=== PATIENT | female | born 1940 | race Caucasian/White ===

== ENCOUNTER → 2016-10-22 | Outpatient (CLI) | payer OTHER ==
[~2016-10-22] MED LIST: ASCO10003 PO; ASPI81TA28 PO; CLOP1TAB15 PO; FAMO20TA11 PO; FRS/40 PO; INSUINJ4 SQ; ISOS60TA25 PO; METO25TA56 PO; NRV5 PO; NTRGSL/4 UT; OMEG10007 PO; [UNRECOGNIZED DRUG - CODE] PO
[2016-10-22 14:35] LABS: BASO % 0.8 %; BASO ABS # 0.07 K/uL (0-0.2); COMPLETE YES; EOS % 5.1 %; HEMATOCRIT 39.4 % (37-47); IG% 0.2 %; LYMPH % 30.8 %; LYMPH ABS # 2.79 K/uL (1.2-3.4); MEAN CELL VOLUME 94.7 fL (80-100); MEAN CORPUSCULAR HEMOGLOBIN 30.5 pg (25-34); MEAN CORPUSCULAR HGB CONC 32.2 g/dl (32-36); MEAN PLATELET VOLUME 10.2 fL (7.4-10.4); MONO % 8.2 %; NEUT % 54.9 %; PLATELET COUNT 334 K/uL (130-400); RED BLOOD COUNT 4.16 M/uL (4.2-5.4); WHITE BLOOD COUNT 9.05 K/uL (4.8-10.8)
[2016-10-22 14:47] LABS: ALT/SGPT 17 U/L (12-78); AST/SGOT 18 U/L (15-37); BLOOD UREA NITROGEN 22 mg/dl (7-18); BUN/CREATININE RATIO 13.1 (10-20); CALCIUM 9.2 mg/dl (8.5-10.1); CARBON DIOXIDE 33 mmol/L (21-32); CHLORIDE 102 mmol/L (98-107); GLUCOSE 177 mg/dl (70-99); SODIUM 141 mmol/L (136-145)
[2016-10-22 14:58] LABS: CHOLESTEROL 165 mg/dl (0-200); HDL CHOLESTEROL 55 mg/dl; LDL CHOLESTEROL CALCULATED 70 mg/dl; TRIGLYCERIDES 198 mg/dl (0-150); VERY LOW DENSITY LIPOPROT CALC 40 mg/dl
[2016-10-23 08:57] LABS: ESTIMATED AVERAGE GLUCOSE 169 mg/dl; HA1C FLAG Normal (Normal)
== END | disposition home or self-care (01) ==
LOC: C.LAB1850 12:43
PROVIDERS: ATTEND Internal Medicine
DX: E11.9 Type 2 diabetes mellitus without complications (principal)

== ENCOUNTER → 2017-04-19 | Outpatient (CLI) | payer OTHER ==
[2017-04-19 12:55] LABS: BASO ABS # 0.09 K/uL (0-0.2); COMPLETE YES; EOS % 9.9 %; HEMATOCRIT 39.1 % (37-47); IG% 0.2 %; LYMPH % 34.5 %; LYMPH ABS # 3.16 K/uL (1.2-3.4); MEAN CELL VOLUME 96.1 fL (80-100); MEAN CORPUSCULAR HEMOGLOBIN 31.2 pg (25-34); MEAN CORPUSCULAR HGB CONC 32.5 g/dl (32-36); MEAN PLATELET VOLUME 10.6 fL (7.4-10.4); MONO % 9.3 %; NEUT % 45.1 %; PLATELET COUNT 295 K/uL (130-400); RED BLOOD COUNT 4.07 M/uL (4.2-5.4); WHITE BLOOD COUNT 9.15 K/uL (4.8-10.8)
[2017-04-19 13:17] LABS: ESTIMATED AVERAGE GLUCOSE 154 mg/dl; HA1C FLAG Normal (Normal)
[2017-04-19 13:34] LABS: ALT/SGPT 17 U/L (12-78); AST/SGOT 21 U/L (15-37); BLOOD UREA NITROGEN 20 mg/dl (7-18); BUN/CREATININE RATIO 12.2 (10-20); CALCIUM 9.6 mg/dl (8.5-10.1); CARBON DIOXIDE 32 mmol/L (21-32); CHLORIDE 102 mmol/L (98-107); CHOLESTEROL 163 mg/dl (0-200); CREATININE 1.66 mg/dl (0.60-1.20); GLUCOSE 125 mg/dl (70-99); POTASSIUM 4.2 mmol/L (3.5-5.1); SODIUM 139 mmol/L (136-145); TRIGLYCERIDES 150 mg/dl (0-150); VERY LOW DENSITY LIPOPROT CALC 30 mg/dl
[2017-04-19 13:44] LABS: CHOLESTEROL/HDL RATIO 2.9; HDL CHOLESTEROL 56 mg/dl; LDL CHOLESTEROL CALCULATED 77 mg/dl
== END | disposition home or self-care (01) ==
LOC: C.LABBFT 09:20
PROVIDERS: ATTEND Internal Medicine
DX: Z00.00 Encounter for general adult medical examination without abnormal findings (principal); C34.90 Malignant neoplasm of unspecified part of unspecified bronchus or lung; N18.9 Chronic kidney disease, unspecified; I25.10 Atherosclerotic heart disease of native coronary artery without angina pectoris; E78.5 Hyperlipidemia, unspecified; R42 Dizziness and giddiness; J96.10 Chronic respiratory failure, unspecified whether with hypoxia or hypercapnia; M53.3 Sacrococcygeal disorders, not elsewhere classified; E11.29 Type 2 diabetes mellitus with other diabetic kidney complication; I70.1 Atherosclerosis of renal artery

== ENCOUNTER → 2017-06-16 | Outpatient (CLI) | payer OTHER ==
--- NOTE | 2017-06-16 13:01 | DIAGNOSTIC IMAGING REPORT ---
CHEST 2 VIEWS ROUTINE CLINICAL HISTORY: J84.9 Interstitial lung [id number] dyspnea COMPARISON STUDY: 06/10/2015 FINDINGS: Operative changes consistent with a left pneumonectomy are in compensatory cardiomediastinal silhouette shift to the left. Slight increase in interstitial markings peripheral aspect right lung as well as right base. There are no consolidative infiltrative changes. IMPRESSION: 1. Prior left pneumonectomy. 2. Interval interstitial changes throughout the right peripheral and basilar lung regions suggesting a nonspecific interstitial pneumonitis. The above report was generated using voice recognition software. It may contain grammatical, syntax or spelling errors. Electronically signed by: Karthik Sinclair M.D. 06/16/2017 12:59 PM Dictated Date/Time: 06/16/2017 12:58 PM
== END | disposition home or self-care (01) ==
LOC: C.RAD1850 12:17
PROVIDERS: ATTEND Physician Assistant
DX: J84.9 Interstitial pulmonary disease, unspecified (principal)

== ENCOUNTER → 2017-08-01 | Outpatient (CLI) | payer OTHER ==
[2017-08-01 12:49] LABS: HEMOGLOBIN A1C 7.3 % (4.5-5.6)
== END | disposition home or self-care (01) ==
LOC: C.LABBFT 09:17
PROVIDERS: ATTEND Internal Medicine
DX: E11.9 Type 2 diabetes mellitus without complications (principal)

== ENCOUNTER 2018-10-26 11:37 | Inpatient (IN) ==
[2018-10-26] MEDS ORDERED: ALBUT/IPRATROP 3MG/0.5MG NEB 3 ML VIAL INH STA (12:40)
[2018-10-26 12:56] LABS: Basophils # (auto) 0.06 K/uL (0-0.2); Basophils % (auto) 0.4 %; Eosinophils % (auto) 2.2 %; Hemoglobin 12.4 g/dL (12.0-16.0); Immature Granulocytes # (auto) 0.03 K/uL (0.00-0.02); Immature Granulocytes % (auto) 0.2 %; Lymphocytes # (auto) 2.37 K/uL (1.2-3.4); Lymphocytes % (auto) 17.1 %; Mean Corpuscular Hgb Conc 33.5 g/dL (32-36); Mean Corpuscular Volume 92.3 fL (80-100); Mean Platelet Volume 10.2 fL (7.4-10.4); Monocytes % (auto) 6.5 %; Neutrophils # (auto) 10.17 K/uL (1.4-6.5); Neutrophils % (auto) 73.6 %; Platelet Count 348 K/uL (130-400); RDW Coefficient of Variation 13.1 % (11.5-14.5); RDW Standard Deviation 44.4 fL (36.4-46.3); Red Blood Count 4.01 M/uL (4.2-5.4); White Blood Count 13.83 K/uL (4.8-10.8)
[2018-10-26 13:05] LABS: Partial Thromboplastin Time 27.9 Seconds (21.0-31.0); Prothrombin Time 10.3 Seconds (9.0-12.0)
[2018-10-26 13:08] LABS: Alanine Aminotransferase 16 U/L (12-78); Albumin Level 3.6 gm/dl (3.4-5.0); Aspartate Aminotransferase 19 U/L (15-37); BUN Creatinine Ratio 13.3 (10-20); Blood Urea Nitrogen 24 mg/dl (7-18); Calcium 9.7 mg/dl (8.5-10.1); Carbon Dioxide 24 mmol/L (21-32); Chloride 105 mmol/L (98-107); Est GFR (African American) 30.3; Est GFR (Non-African American) 26.1; Glucose 168 mg/dl (70-99); Magnesium 2.3 mg/dl (1.8-2.4); Sodium 140 mmol/L (136-145)
[2018-10-26 13:13] LABS: Albumin Globulin Ratio 0.9 (0.9-2); Alkaline Phosphatase 100 U/L (45-117); Bilirubin,Total 0.5 mg/dl (0.2-1); Globulin 4.2 gm/dl (2.5-4.0); Total Protein 7.8 gm/dl (6.4-8.2); Troponin I 0.021 ng/ml (0-0.045)
--- NOTE | 2018-10-26 13:24 | XRay Report ---
XR chest 1V portable CLINICAL HISTORY: sob dyspnea COMPARISON STUDY: 06/10/2015 FINDINGS: Prior total left pneumonectomy. Permanent bipolar cardiac pacemaker. Interval development of parenchymal infiltrative change right mid and lower lung. Trace pleural fluid right base. IMPRESSION: Diffuse right mid and lower lung infiltrate. Operative changes consistent with a prior l eft pneumonectomy The above report was generated using voice recognition software. It may contain grammatical, syntax or spelling errors. Electronically signed by: Karthik Sinclair M.D. 10/26/2018 1:22 PM
[2018-10-26] MEDS ORDERED: PIPERACILLIN/TAZOBACTAM 4.5 GM/120 ML BAG IV ONE (14:00)
--- NOTE | 2018-10-26 14:54 | History & Physical Report ---
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 She says that she started to feel more short of breath over the past three or four days. She felt congested in her nose and like she could not take a deep breath. She had some chills but never a fever or sweats. She was coughing a little but no mucous production. Her appetite was decreased for the past two days. She did not have any chest pain or pressure. No vomiting or diarrhea or rashes. She tried increasing her home oxygen from 2L to 4L but she still felt short of breath, especially when walking. She presented to the ED because her symptoms were getting worse. In the ED she had a leukocytosis of 13k and her CXR showed infiltrates in the right lung. She was not in respiratory distress. She was treated with Zosyn and admission was requested. Allergies Allergy/AdvReac Type Severity Reaction Status Date / Time No Known Allergies Allergy Unknown Verified 10/26/18 12:28 Home Medications Home Medications Medication Instructions Recorded Confirmed Type amlodipine 5 mg PO DAILY 10/26/18 10/26/18 History apixaban [Eliquis] 5 mg PO BID 10/26/18 10/26/18 History ascorbic acid (vitamin C) [Vitamin 500 mg PO DAILY 10/26/18 10/26/18 History C] aspirin [Aspir-81] 81 mg PO DAILY 10/26/18 10/26/18 History atorvastatin 10 mg PO DAILY 10/26/18 10/26/18 History clopidogrel 75 mg PO DAILY 10/26/18 10/26/18 History diltiazem HCl 240 mg PO DAILY 10/26/18 10/26/18 History famotidine 20 mg PO DAILY 10/26/18 10/26/18 History insulin glargine [Lantus Solostar 1 unit SUBCUT UD 10/26/18 10/26/18 History U-100 Insulin] isosorbide mononitrate 60 mg PO DAILY 10/26/18 10/26/18 History metoprolol tartrate 25 mg PO BID 10/26/18 10/26/18 History nitroglycerin 0.4 mg SUBLINGUAL Q5M PRN 10/26/18 10/26/18 History Past Med/Surg History Medical History Coronary artery disease (Chronic) Pneumonia (Acute) Surgical History S/P pneumonectomy S/P partial lobectomy of lung Family History Other Diabetes Hypertension Social History Preferred Language: Citizen Of [place] Communication Ability: Effective [employer] Required: No Beliefs That Will Affect Care: None marital status: Current Living Situation: Spouse current occupational status: retired Other Information That Helps Us Care for You: No Feels Safe at Home: Yes Safety Concerns: Feels Safe At This Time Smoking Status: Never smoker Hx Alcohol Use: No Hx Substance Use: No Review of Systems Review of Systems: All systems reviewed & are unremarkable except as noted in HPI & below Physical Exam Constitutional: WD/WN, vitals as above Eyes: PERRL, conjunctivae normal, anicteric sclerae ENMT: external ear and nose normal, oropharynx normal Neck: trachea midline, no thyromegaly Respiratory: normal respiratory effort and + cough; no respiratory distress Auscultation: + breath sounds absent (left side) and + crackles (right lower and middle lung); no rhonchi and no wheezes Cardiovascular: RRR, no murmur, no edema Gastrointestinal (Abdomen): normal bowel sounds, soft, nontender, no hepatosplenomegaly Musculoskeletal: no cyanosis or clubbing, extremities motor strength 5/5 Skin: no rashes, warm and dry Neurologic: patellar DTR's 2+ bilat, sensation intact and PERRL, EOMI, accommodation nl, no face palsy, no dysarthria Psychiatric: A+Ox3, euthymic affect Lymphatic: no cervical or axillary lymphadenopathy Results & Data Vital Signs (Past 12 Hours) Vital Signs Temp Pulse Pulse Resp BP Pulse Ox 10/26/18 13:11 73 16 98 10/26/18 13:00 73 97 10/26/18 12:30 78 27 H 183/63 H 95 10/26/18 12:02 77 29 H 204/65 H 97 10/26/18 12:01 36.9 C 84 22 214/122 H 95 10/26/18 12:00 79 23 98 10/26/18 11:48 85 22 95 10/26/18 11:46 80 25 H 214/122 H 94 Laboratory Results Laboratory Results - last 24 hr 10/26/18 10/26/18 10/26/18 12:07 12:07 12:07 WBC 13.83 H RBC 4.01 L Hgb 12.4 Hct 37.0 MCV 92.3 MCH 30.9 MCHC 33.5 RDW Std Deviation 44.4 RDW Coeff of Kimberley 13.1 Plt Count 348 MPV 10.2 Immature Gran % (Auto) 0.2 Neut % (Auto) 73.6 Lymph % (Auto) 17.1 [place] % (Auto) 6.5 Eos % (Auto) 2.2 Baso % (Auto) 0.4 Immature Gran # (Auto) 0.03 H Neut # (Auto) 10.17 H Lymph # (Auto) 2.37 [place] # (Auto) 0.90 H Eos # (Auto) 0.30 Baso # (Auto) 0.06 PT 10.3 INR 1.0 APTT 27.9 PTT Ratio 1.0 Sodium Cancelled Potassium Cancelled Chloride Cancelled Carbon Dioxide Cancelled Anion Gap Cancelled BUN Cancelled Creatinine Cancelled Est Cr Clr Drug Dosing Cancelled Est GFR ( Amer) Cancelled Est GFR (Non-Af Amer) Cancelled BUN/Creatinine Ratio Cancelled Glucose Cancelled Calcium Cancelled Magnesium Cancelled Total Bilirubin Cancelled AST Cancelled ALT Cancelled Alkaline Phosphatase Cancelled Troponin I Cancelled Total Protein Cancelled Albumin Cancelled Globulin Cancelled Albumin/Globulin Ratio Cancelled Influenza Type A Ag Influenza Type B Ag 10/26/18 10/26/18 12:07 13:40 WBC RBC Hgb Hct MCV MCH MCHC RDW Std Deviation RDW Coeff of Kimberley Plt Count MPV Immature Gran % (Auto) Neut % (Auto) Lymph % (Auto) [place] % (Auto) Eos % (Auto) Baso % (Auto) Immature Gran # (Auto) Neut # (Auto) Lymph # (Auto) [place] # (Auto) Eos # (Auto) Baso # (Auto) PT INR APTT PTT Ratio Sodium 140 Potassium 4.0 Chloride 105 Carbon Dioxide 24 Anion Gap 10.0 BUN 24 H Creatinine 1.80 H Est Cr Clr Drug Dosing Not Reportable Est GFR ( Amer) 30.3 Est GFR (Non-Af Amer) 26.1 BUN/Creatinine Ratio 13.3 Glucose 168 H Calcium 9.7 Magnesium 2.3 Total Bilirubin 0.5 AST 19 ALT 16 Alkaline Phosphatase 100 Troponin I 0.021 Total Protein 7.8 Albumin 3.6 Globulin 4.2 H Albumin/Globulin Ratio 0.9 Influenza Type A Ag Neg for Influ A Influenza Type B Ag Neg for Influ B Diagnostic Findings XR chest 1V portable CLINICAL HISTORY: sob dyspnea COMPARISON STUDY: 06/10/2015 FINDINGS: Prior total left pneumonectomy. Permanent bipolar cardiac pacemaker. Interval development of parenchymal infiltrative change right mid and lower lung. Trace pleural fluid right base. IMPRESSION: Diffuse right mid and lower lung infiltrate. Operative changes consistent with a prior left pneumonectomy Code Status & VTE Plan Code Status DNR, DNI VTE Prophylaxis Plan VTE Prophylaxis will be ordered: Yes (1) Pneumonia Laterality: right Lung location: lower lobe of lung Pneumonia type: due to unspecified organism Qualified Code(s): J18.1 - Lobar pneumonia, unspecified organism
--- NOTE | 2018-10-26 16:01 | Emergency Department Note ---
Entered by Monalisa Sharpe acting as a scribe for History of Present Illness General Chief complaint: Shortness of Breath/Dyspnea Stated complaint: sob Time Seen by Provider: 10/26/18 12:32 Source: patient Mode of arrival: EMS Limitations: no limitations History of Present Illness Provider complaint: Shortness of breath Onset (ago): day(s) (a few days ago) Location: mouth (throat) Pain Consistency: + other (worsening) Quality: + other (shortness of breath) Relieved By: + medication (nitroglycerin) Associated symptoms: + cough (bloody phlegm) and + other (Additional symptoms: throat discomfort. Denies: diarrhea); no chest pain and no nausea/vomiting Treatments prior to arrival: other (2 doses nitroglycerin) The patient is an 78 year old female with a history of a left pneumectomy secondary to a carcinoid tumor who presents to the Emergency Room with complaints of worsening shortness of breath starting a few days ago. The patient reports that she is "totally stopped up" and feels as if she is not getting enough air. She states that she has discomfort from her throat up and has been coughing for quite a while, but she denies any chest pain, vomiting, and diarrhea. She also notes that she been staggering around and losing her balance, and she states that she fell and hit her back about a month ago. The patient reports that her shortness of breath improved when she took 2 doses of nitroglycerin prior to arrival. She states that she was put on oxygen on the ambulance but did not receive any nebulizer treatment. She notes that she normally wears 2L oxygen at home. She adds that she takes Plavix and is supposed to take Eliquis twice a day for plaque in her arteries; however, she concedes that she has only been taking Eliquis once a day out of concern for blood in her phlegm. Home Medications Home Medications Medication Instructions Recorded Confirmed Type amlodipine 5 mg PO DAILY 10/26/18 10/26/18 History apixaban [Eliquis] 5 mg PO BID 10/26/18 10/26/18 History ascorbic acid (vitamin C) [Vitamin 500 mg PO DAILY 10/26/18 10/26/18 History C] aspirin [Aspir-81] 81 mg PO DAILY 10/26/18 10/26/18 History atorvastatin 10 mg PO DAILY 10/26/18 10/26/18 History clopidogrel 75 mg PO DAILY 10/26/18 10/26/18 History diltiazem HCl 240 mg PO DAILY 10/26/18 10/26/18 History famotidine 20 mg PO DAILY 10/26/18 10/26/18 History insulin glargine [Lantus Solostar 1 unit SUBCUT UD 10/26/18 10/26/18 History U-100 Insulin] isosorbide mononitrate 60 mg PO DAILY 10/26/18 10/26/18 History metoprolol tartrate 25 mg PO BID 10/26/18 10/26/18 History nitroglycerin 0.4 mg SUBLINGUAL Q5M PRN 10/26/18 10/26/18 History Allergies Allergy/AdvReac Type Severity Reaction Status Date / Time No Known Allergies Allergy Unknown Verified 10/26/18 12:28 Past Med/Surg History Medical History Coronary artery disease (Chronic) Pneumonia (Acute) Surgical History S/P pneumonectomy S/P partial lobectomy of lung Social History Preferred Language: Swedish Communication Ability: Effective [employer] Required: No Beliefs That Will Affect Care: None marital status: Current Living Situation: Spouse current occupational status: retired Other Information That Helps Us Care for You: No Feels Safe at Home: Yes Safety Concerns: Feels Safe At This Time Smoking Status: Never smoker Hx Alcohol Use: No Hx Substance Use: No Review of Systems See HPI for pertinent positives & negatives. and A total of 10 systems reviewed and were otherwise negative Physical Exam Vital Signs Vital Signs - 24 hr 10/26/18 11:46 10/26/18 11:48 10/26/18 12:00 Temperature Temperature Source Sepsis Recent Fever Within 48 Hours Sepsis New/Unexplained Change in Mental Status Sepsis Action Taken by Nursing Pulse Rate 80 85 79 Pulse Rate [Apical] Pulse Rate from SpO2 Sensor 82 85 79 Pulse Rhythm Pulse Strength Respiratory Rate 25 H 22 23 Respiratory Effort / Characteristics Respiratory Depth Respiratory Pattern Blood Pressure 214/122 H Blood Pressure Mean 152 Blood Pressure Position Pulse Oximetry 94 95 98 Oxygen Delivery Method Oxygen Flow Rate 10/26/18 12:01 10/26/18 12:02 10/26/18 12:08 Temperature 36.9 C Temperature Source Oral Sepsis Recent Fever Within 48 Hours No Sepsis New/Unexplained Change in Mental Status No Sepsis Action Taken by Nursing No Action Required Pulse Rate 84 77 Pulse Rate [Apical] Pulse Rate from SpO2 Sensor 77 Pulse Rhythm Regular Pulse Strength Normal Respiratory Rate 22 29 H Respiratory Effort / Characteristics Spontaneous Labored Spontaneous Labored Respiratory Depth Normal Normal Respiratory Pattern Regular Regular Blood Pressure 214/122 H 204/65 H Blood Pressure Mean 152 111 Blood Pressure Position Lying Pulse Oximetry 95 97 Oxygen Delivery Method Nasal Cannula Nasal Cannula Oxygen Flow Rate 4 3 10/26/18 12:30 10/26/18 13:00 10/26/18 13:11 Temperature Temperature Source Sepsis Recent Fever Within 48 Hours Sepsis New/Unexplained Change in Mental Status Sepsis Action Taken by Nursing Pulse Rate 78 77 Pulse Rate [Apical] 73 Pulse Rate from SpO2 Sensor 78 77 Pulse Rhythm Regular Pulse Strength Respiratory Rate 27 H 22 16 Respiratory Effort / Characteristics Spontaneous Respiratory Depth Respiratory Pattern Blood Pressure 183/63 H 188/74 H Blood Pressure Mean 103 112 Blood Pressure Position Pulse Oximetry 95 98 98 Oxygen Delivery Method Nasal Cannula Nasal Cannula Oxygen Flow Rate 3 3 10/26/18 13:30 10/26/18 14:00 10/26/18 14:01 Temperature Temperature Source Sepsis Recent Fever Within 48 Hours Sepsis New/Unexplained Change in Mental Status Sepsis Action Taken by Nursing Pulse Rate 84 80 78 Pulse Rate [Apical] Pulse Rate from SpO2 Sensor 81 78 Pulse Rhythm Pulse Strength Respiratory Rate 26 H 26 H 16 Respiratory Effort / Characteristics Respiratory Depth Respiratory Pattern Blood Pressure 160/133 H 188/65 H Blood Pressure Mean 142 106 Blood Pressure Position Pulse Oximetry 98 96 Oxygen Delivery Method Oxygen Flow Rate 10/26/18 14:30 Temperature Temperature Source Sepsis Recent Fever Within 48 Hours Sepsis New/Unexplained Change in Mental Status Sepsis Action Taken by Nursing Pulse Rate 86 Pulse Rate [Apical] Pulse Rate from SpO2 Sensor 88 Pulse Rhythm Pulse Strength Respiratory Rate 16 Respiratory Effort / Characteristics Respiratory Depth Respiratory Pattern Blood Pressure Blood Pressure Mean Blood Pressure Position Pulse Oximetry 93 Oxygen Delivery Method Oxygen Flow Rate GENERAL: Patient is in no acute distress. HEENT: No acute trauma, normocephalic atraumatic, mucous membranes moist, no nasal congestion, no scleral icterus. NECK: No stridor, no adenopathy, no meningismus, trachea is midline. LUNGS: Wheezing mostly on the right, crackles mostly on the right, diminished breath sounds on the left. HEART: 3/6 systolic murmur, regular rate and rhythm. ABDOMEN: Soft, nontender, bowel sounds positive, no hernias, no peritonitis. EXTREMITIES: No cyanosis or edema, full range of motion of all the joints without pain or difficulty, no signs for acute trauma. NEUROLOGIC: Oriented x 3, no acute motor or sensory deficits, no focal weakness. SKIN: No rash, no jaundice, no diaphoresis. Course 1238: The patient was evaluated in room C10, and a complete history and physical examination were performed. 1410: I checked on the patient and updated her on her results. The patient is agreeable to the treatment plan. 1415: I reviewed the patient's case with Dr. Clarissa Bush, [facility]. Dr. Romo will evaluate the patient for further management. Consultations Consultation #1: I reviewed the patient's case with Dr. Clarissa Bush, [facility] Nacho. Dr. Romo will evaluate the patient for further management. Time: 14:15 Administered Medications Discontinued Medications Albuterol (Duoneb) 3 ml INH NOW STA Stop: 10/26/18 12:41 Last Admin: 10/26/18 13:11 Dose: 3 ml Documented by: [id number] Piperacillin Sod/Tazobactam Sod (Zosyn) 4.5 gm in 120 mls @ 240 mls/hr IV NOW ONE Stop: 10/26/18 14:29 Last Infusion: 10/26/18 15:58 Dose: 0 mls/hr Documented by: [id number] Admin: 10/26/18 14:21 Dose: 240 mls/hr Documented by: [id number] Medical Decision Making Differential Diagnosis Differential diagnosis includes: influenza or flu-like illness, bronchitis, pneumonia, CHF, anemia, electrolyte imbalance, exacerbation of COPD. Medical Records Attestation: I reviewed the patient's medical records. Home Medications Current Medication List: was personally reviewed by me Laboratory Data Attestation: I reviewed the patient's lab results. Result diagrams: 10/26/18 12:07 10/26/18 12:07 Lab Results 10/26/18 10/26/18 10/26/18 Range/Units 12:07 12:07 12:07 WBC 13.83 H (4.8-10.8) K/uL RBC 4.01 L (4.2-5.4) M/uL Hgb 12.4 (12.0-16.0) g/dL Hct 37.0 (37-47) % MCV 92.3 (80-100) fL MCH 30.9 (25-34) pg MCHC 33.5 (32-36) g/dL RDW Std Deviation 44.4 (36.4-46.3) fL RDW Coeff of Kimberley 13.1 (11.5-14.5) % Plt Count 348 (130-400) K/uL MPV 10.2 (7.4-10.4) fL Immature Gran % (Auto) 0.2 % Neut % (Auto) 73.6 % Lymph % (Auto) 17.1 % [place] % (Auto) 6.5 % Eos % (Auto) 2.2 % Baso % (Auto) 0.4 % Immature Gran # (Auto) 0.03 H (0.00-0.02) K/uL Neut # (Auto) 10.17 H (1.4-6.5) K/uL Lymph # (Auto) 2.37 (1.2-3.4) K/uL [place] # (Auto) 0.90 H (0.11-0.59) K/uL Eos # (Auto) 0.30 (0-0.5) K/uL Baso # (Auto) 0.06 (0-0.2) K/uL PT 10.3 (9.0-12.0) Seconds INR 1.0 (0.9-1.1) APTT 27.9 (21.0-31.0) Seconds PTT Ratio 1.0 Sodium Cancelled Potassium Cancelled Chloride Cancelled Carbon Dioxide Cancelled Anion Gap Cancelled BUN Cancelled Creatinine Cancelled Est Cr Clr Drug Dosing Cancelled Est GFR ( Amer) Cancelled Est GFR (Non-Af Amer) Cancelled BUN/Creatinine Ratio Cancelled Glucose Cancelled Calcium Cancelled Magnesium Cancelled Total Bilirubin Cancelled AST Cancelled ALT Cancelled Alkaline Phosphatase Cancelled Troponin I Cancelled Total Protein Cancelled Albumin Cancelled Globulin Cancelled Albumin/Globulin Ratio Cancelled Influenza Type A Ag (Neg) Influenza Type B Ag (Neg) 10/26/18 10/26/18 Range/Units 12:07 13:40 WBC (4.8-10.8) K/uL RBC (4.2-5.4) M/uL Hgb (12.0-16.0) g/dL Hct (37-47) % MCV (80-100) fL MCH (25-34) pg MCHC (32-36) g/dL RDW Std Deviation (36.4-46.3) fL RDW Coeff of Kimberley (11.5-14.5) % Plt Count (130-400) K/uL MPV (7.4-10.4) fL Immature Gran % (Auto) % Neut % (Auto) % Lymph % (Auto) % [place] % (Auto) % Eos % (Auto) % Baso % (Auto) % Immature Gran # (Auto) (0.00-0.02) K/uL Neut # (Auto) (1.4-6.5) K/uL Lymph # (Auto) (1.2-3.4) K/uL [place] # (Auto) (0.11-0.59) K/uL Eos # (Auto) (0-0.5) K/uL Baso # (Auto) (0-0.2) K/uL PT (9.0-12.0) Seconds INR (0.9-1.1) APTT (21.0-31.0) Seconds PTT Ratio Sodium 140 Potassium 4.0 Chloride 105 Carbon Dioxide 24 Anion Gap 10.0 BUN 24 H Creatinine 1.80 H Est Cr Clr Drug Dosing Not Reportable Est GFR ( Amer) 30.3 Est GFR (Non-Af Amer) 26.1 BUN/Creatinine Ratio 13.3 Glucose 168 H Calcium 9.7 Magnesium 2.3 Total Bilirubin 0.5 AST 19 ALT 16 Alkaline Phosphatase 100 Troponin I 0.021 Total Protein 7.8 Albumin 3.6 Globulin 4.2 H Albumin/Globulin Ratio 0.9 Influenza Type A Ag Neg for Influ A (Neg) Influenza Type B Ag Neg for Influ B (Neg) Imaging Data Radiologist's Impression: Radiology results as stated below per my review and the radiologist's interpretation: XR chest 1V portable CLINICAL HISTORY: sob dyspnea COMPARISON STUDY: 06/10/2015 FINDINGS: Prior total left pneumonectomy. Permanent bipolar cardiac pacemaker. Interval development of parenchymal infiltrative change right mid and lower lung. Trace pleural fluid right base. IMPRESSION: Diffuse right mid and lower lung infiltrate. Operative changes consistent with a prior left pneumonectomy The above report was generated using voice recognition software. It may contain grammatical, syntax or spelling errors. Electronically signed by: Karthik Sinclair M.D. 10/26/2018 1:22 PM ECG Data Attestation: I personally reviewed and interpreted this ECG as follows: Indication: SOB/dyspnea Rate (beats per minute): 83 Rhythm: sinus rhythm Findings: + other (potential paced beat noted), + LBBB and + PVC Blood Pressure Blood Pressure Findings: Elevated blood pressure Blood Pressure Disposition: further management by hospitalist MDM Narrative There is a mild leukocytosis, this could be consistent with infection. No con cerning anemia. No coagulopathy. Renal panel testing showed a higher creatinine, this was slightly above her baseline consistent with some dehydration. No evidence for liver enzyme elevation. EKG showed a sinus rhythm with what was thought to be a pacer beat. No evidence for acute NV. Cardiac enzyme testing x1 was not consistent with acute cardiac injury. Influenza testing was negative. Chest film shows white out where the left lung used to be, there was a right lower lung infiltrate noted. Blood cultures are pending. The patient received a DuoNeb, she received IV Zosyn as antibiotic coverage. The patient has pneumonia. She only has one lung. She has a leukocytosis and feels dyspneic. She presents by ambulance because she was so winded. I do think a hospital stay is warranted. I spoke to case management, I spoke with the patient. The on-call hospitalist was consulted. Impression & Plan Shortness of breath, Pneumonia, History of pneumonectomy Discharge Plan Visit Data *Final* Discharge Date/Time: 10/26/18 16:11 Chief Complaint: Shortness of Breath/Dyspnea Stated Complaint: sob ED Provider: Vasiliy Peraza Discharge Problem: Shortness of breath, Pneumonia, History of pneumonectomy Patient Disposition: Admitted As Inpatient Discharge Instructions Interventions: ED Discharge Assessment Last Done: 10/26/18 16:11 Discharge Problem: Pneumonia Qualifiers: Pneumonia type: due to unspecified organism Laterality: right Lung location: lower lobe of lung Qualified Code(s): J18.1 - Lobar pneumonia, unspecified organism The scribe's documentation has been prepared under my direction and personally reviewed by me in its entirety. I confirm that the note above accurately reflects all work, treatment, procedures, and medical decision making performed by me.
[2018-10-26] MEDS ORDERED: ACETAMINOPHEN 325 MG TAB PO PRN (16:33)
[2018-10-26] MEDS ORDERED: ONDANSETRON INJ 2 MG/ML 2 ML VIAL IV PRN (16:33)
[2018-10-26] MEDS ORDERED: PIPERACILL/TAZOBAC CONSULT ACTIVE PRN (16:33)
[2018-10-26] MEDS ORDERED: PATIENT'S HEIGHT AND/OR WEIGHT NEEDED SCH (17:00)
[2018-10-26] MEDS: PIPERACILLIN/TAZOBACTAM 3.375 GM in DEXTROSE 5% 100 ML IV SCH (20:45)
[2018-10-26] MEDS: METOPROLOL TARTRATE 25 MG TAB PO SCH (20:46)
[2018-10-26] MEDS: APIXABAN 5 MG TABLET PO SCH (20:46)
[2018-10-26] MEDS: INSULIN ASPART 100 UNITS/ML 3 ML PEN SC SCH (21:01)
[2018-10-27] MEDS: PIPERACILLIN/TAZOBACTAM 3.375 GM in DEXTROSE 5% 100 ML IV SCH ×3 (03:30→21:29)
[2018-10-27 05:55] LABS: Basophils # (auto) 0.04 K/uL (0-0.2); Basophils % (auto) 0.5 %; Eosinophils # (auto) 0.42 K/uL (0-0.5); Eosinophils % (auto) 5.3 %; Hematocrit (blood only) 30.7 % (37-47); Hemoglobin 10.1 g/dL (12.0-16.0); Immature Granulocytes # (auto) 0.01 K/uL (0.00-0.02); Immature Granulocytes % (auto) 0.1 %; Lymphocytes # (auto) 1.91 K/uL (1.2-3.4); Lymphocytes % (auto) 24.3 %; Mean Corpuscular Hgb Conc 32.9 g/dL (32-36); Mean Corpuscular Volume 93.3 fL (80-100); Mean Platelet Volume 9.6 fL (7.4-10.4); Monocytes # (auto) 0.89 K/uL (0.11-0.59); Monocytes % (auto) 11.3 %; Neutrophils # (auto) 4.59 K/uL (1.4-6.5); Neutrophils % (auto) 58.5 %; Platelet Count 246 K/uL (130-400); RDW Coefficient of Variation 13.2 % (11.5-14.5); RDW Standard Deviation 45.3 fL (36.4-46.3); Red Blood Count 3.29 M/uL (4.2-5.4); White Blood Count 7.86 K/uL (4.8-10.8)
[2018-10-27 06:23] LABS: BUN Creatinine Ratio 11.6 (10-20); Creatinine Clr Calc Pharmacy 21.9 ml/min; Est GFR (African American) 29.9; Est GFR (Non-African American) 25.8
[2018-10-27] MEDS: INSULIN ASPART 100 UNITS/ML 3 ML PEN SC SCH ×4 (08:39→21:34)
[2018-10-27] MEDS: ISOSORBIDE MONO EXTENDED REL 60 MG TABCR PO SCH (08:39)
[2018-10-27] MEDS: APIXABAN 5 MG TABLET PO SCH ×2 (08:39→21:32)
[2018-10-27] MEDS: dilTIAZem HCL 240 MG CAPCR PO SCH (08:39)
[2018-10-27] MEDS: ATORVASTATIN 10 MG TAB PO SCH ×2 (08:40→10:32)
[2018-10-27] MEDS: ASPIRIN 81 MG ECTAB PO SCH (08:40)
[2018-10-27] MEDS: AMLODIPINE BESYLATE 5 MG TAB PO SCH (08:40)
[2018-10-27] MEDS: ASCORBIC ACID 500 MG TAB PO SCH (08:40)
[2018-10-27] MEDS: METOPROLOL TARTRATE 25 MG TAB PO SCH ×2 (08:40→21:36)
[2018-10-27] MEDS: CLOPIDOGREL BISULFATE 75 MG TAB PO SCH ×2 (08:40→10:32)
[2018-10-27] MEDS: FAMOTIDINE 20 MG TAB PO SCH (08:40)
[2018-10-27] MEDS ORDERED: ATORVASTATIN 10 MG TAB PO SCH (21:00)
[2018-10-27] MEDS ORDERED: CLOPIDOGREL BISULFATE 75 MG TAB PO SCH (21:00)
--- NOTE | 2018-10-27 22:07 | Hospitalist Progress Note ---
Date of Service October 27, 2018 Assessment & Plan (1) Pneumonia: right sided, multifocal treat with Zosyn IV, renally dosed no fever, WBC now normal coughing less and less dyspnea she feels stronger, asking to go home today discussed that tomorrow is more appropriate discharge goal will go home tomorrow change to Augmentin and complete 7 day course total follow up with her PCP Dr. Fung (2) Shortness of breath: due to right sided pneumonia h/o left pneumonectomy for carcinoid tumor chronically on 2L of oxygen she is 100% on her 2L of oxygen (3) History of pneumonectomy: for carcinoid tumor surgery was 13 years ago (4) Coronary artery disease: no chest pain continue aspirin and Plavix (5) H/O heart block: has pacemaker (6) Diabetes type 2, controlled: Novolog SS diabetic diet no hypoglycemia Plan: d/c to home tomorrow on Augmentin Subjective patient feeling well, breathing is improved minimal sputum production, coughing less no fever or chills eating better but she says the food is not very good reviewed labs, WBC normal, CR at her baseline of 1.[address] Fung, her PCP, he agrees with letting her go tomorrow Review of Systems Review of Systems: All systems reviewed & are unremarkable except as noted in HPI & below Constitutional: no fever and no sweats Respiratory: + cough; no dyspnea, no dyspnea on exertion and no sputum production Physical Exam Constitutional: WD/WN, vitals as above Eyes: PERRL, conjunctivae normal, anicteric sclerae ENMT: external ear and nose normal, oropharynx normal Neck: trachea midline, no thyromegaly Respiratory: normal respiratory effort and + cough; no respiratory distress Auscultation: + breath sounds absent (left side) and + crackles (right lower and middle lung); no rhonchi and no wheezes Cardiovascular: RRR, no murmur, no edema Gastrointestinal (Abdomen): normal bowel sounds, soft, nontender, no hepatosplenomegaly Musculoskeletal: no cyanosis or clubbing, extremities motor strength 5/5 Skin: no rashes, warm and dry Neurologic: patellar DTR's 2+ bilat, sensation intact and PERRL, EOMI, accommodation nl, no face palsy, no dysarthria Psychiatric: A+Ox3, euthymic affect Lymphatic: no cervical or axillary lymphadenopathy Results & Data Vital Signs (Past 12 Hours) Vital Signs Temp Pulse Resp BP BP Pulse Ox 10/27/18 21:30 62 169/65 H 10/27/18 16:02 36.7 C 60 20 169/63 H 100 Laboratory Results Laboratory Results - last 24 hr 10/27/18 10/27/18 10/27/18 05:39 05:39 12:04 WBC 7.86 RBC 3.29 L Hgb 10.1 L Hct 30.7 L MCV 93.3 MCH 30.7 MCHC 32.9 RDW Std Deviation 45.3 RDW Coeff of Kimberley 13.2 Plt Count 246 MPV 9.6 Immature Gran % (Auto) 0.1 Neut % (Auto) 58.5 Lymph % (Auto) 24.3 [place] % (Auto) 11.3 Eos % (Auto) 5.3 Baso % (Auto) 0.5 Immature Gran # (Auto) 0.01 Neut # (Auto) 4.59 Lymph # (Auto) 1.91 [place] # (Auto) 0.89 H Eos # (Auto) 0.42 Baso # (Auto) 0.04 Sodium 142 Potassium 4.0 Chloride 108 H Carbon Dioxide 30 Anion Gap 4.0 BUN 21 H Creatinine 1.82 H Est Cr Clr Drug Dosing 21.9 Est GFR ( Amer) 29.9 Est GFR (Non-Af Amer) 25.8 BUN/Creatinine Ratio 11.6 Glucose 91 POC Glucose 71 Calcium 9.0 10/27/18 10/27/18 17:14 20:15 WBC RBC Hgb Hct MCV MCH MCHC RDW Std Deviation RDW Coeff of Kimber[place] Plt Count MPV Immature Gran % (Auto) Neut % (Auto) Lymph % (Auto) [place] % (Auto) Eos % (Auto) Baso % (Auto) Immature Gran # (Auto) Neut # (Auto) Lymph # (Auto) [place] # (Auto) Eos # (Auto) Baso # (Auto) Sodium Potassium Chloride Carbon Dioxide Anion Gap BUN Creatinine Est Cr Clr Drug Dosing Est GFR ( Amer) Est GFR (Non-Af Amer) BUN/Creatinine Ratio Glucose POC Glucose 146 H 136 H Calcium Medications Administered Current Inpatient Medications Acetaminophen (Tylenol) 650 mg PO Q4H PRN PRN Reason: pain/fever Stop: 11/25/18 16:32 Amlodipine Besylate (Norvasc) 5 mg PO DAILY GINNY Stop: 11/26/18 08:59 Last Admin: 10/27/18 08:40 Dose: 5 mg Documented by: Apixaban (Eliquis) 5 mg PO BID GINNY Stop: 11/25/18 20:59 Last Admin: 10/27/18 21:32 Dose: 5 mg Documented by: Ascorbic Acid (Vitamin C) 500 mg PO DAILY GINNY Stop: 11/26/18 08:59 Last Admin: 10/27/18 08:40 Dose: 500 mg Documented by: Aspirin (Ecotrin Ectab) 81 mg PO DAILY GINNY Stop: 11/26/18 08:59 Last Admin: 10/27/18 08:40 Dose: 81 mg Documented by: Atorvastatin Calcium (Lipitor) 10 mg PO HS [facility] Stop: 11/26/18 20:59 Last Admin: 10/27/18 21:34 Dose: 10 mg Documented by: Clopidogrel Bisulfate (Plavix) 75 mg PO HS GINNY Stop: 11/26/18 20:59 Last Admin: 10/27/18 21:33 Dose: 75 mg Documented by: Diltiazem HCl (Cardizem Cd) 240 mg PO DAILY GINNY Stop: 11/26/18 08:59 Last Admin: 10/27/18 08:39 Dose: 240 mg Documented by: Famotidine (Pepcid) 20 mg PO DAILY [facility] Stop: 11/26/18 08:59 Last Admin: 10/27/18 08:40 Dose: 20 mg Documented by: Piperacillin Sod/Tazobactam (Sod 3.375 gm/ Dextrose) 115 mls @ 27.5 mls/hr IV Q8H GINNY Stop: 11/02/18 19:59 Last Admin: 10/27/18 21:29 Dose: 28.8 mls/hr Documented by: Insulin Aspart (Novolog Flexpen) 0 units SC ACHS [facility] Stop: 11/25/18 20:59 Last Admin: 10/27/18 21:34 Dose: Not Given Documented by: Isosorbide Mononitrate (Imdur Extended Rel) 60 mg PO DAILY [facility] Stop: 11/26/18 08:59 Last Admin: 10/27/18 08:39 Dose: 60 mg Documented by: Metoprolol Tartrate (Lopressor) 25 mg PO BID [facility] Stop: 11/25/18 20:59 Last Admin: 10/27/18 21:36 Dose: 25 mg Documented by: Miscellaneous Information (Consult) 1 ea N/A UD PRN PRN Reason: Consult Stop: 11/25/18 16:32 Ondansetron HCl (Zofran) 4 mg IV Q6H PRN PRN Reason: Nausea Stop: 11/25/18 16:32 (1) Pneumonia Laterality: right Lung location: lower lobe of lung Pneumonia type: due to unspecified organism Qualified Code(s): J18.1 - Lobar pneumonia, unspecified organism
[2018-10-28] MEDS: PIPERACILLIN/TAZOBACTAM 3.375 GM in DEXTROSE 5% 100 ML IV SCH ×2 (04:08→11:25)
[2018-10-28] MEDS: INSULIN ASPART 100 UNITS/ML 3 ML PEN SC SCH ×2 (09:16→12:12)
[2018-10-28] MEDS: FAMOTIDINE 20 MG TAB PO SCH (09:20)
[2018-10-28] MEDS: APIXABAN 5 MG TABLET PO SCH (09:20)
[2018-10-28] MEDS: ASPIRIN 81 MG ECTAB PO SCH (09:20)
[2018-10-28] MEDS: ISOSORBIDE MONO EXTENDED REL 60 MG TABCR PO SCH (09:20)
[2018-10-28] MEDS: dilTIAZem HCL 240 MG CAPCR PO SCH (09:20)
[2018-10-28] MEDS: AMLODIPINE BESYLATE 5 MG TAB PO SCH (09:20)
[2018-10-28] MEDS: ASCORBIC ACID 500 MG TAB PO SCH (09:20)
[2018-10-28] MEDS: METOPROLOL TARTRATE 25 MG TAB PO SCH (09:20)
--- NOTE | 2018-11-06 21:19 | Discharge Summary ---
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 She says that she started to feel more short of breath over the past three or four days. She felt congested in her nose and like she could not take a deep breath. She had some chills but never a fever or sweats. She was coughing a little but no mucous production. Her appetite was decreased for the past two days. She did not have any chest pain or pressure. No vomiting or diarrhea or rashes. She tried increasing her home oxygen from 2L to 4L but she still felt short of breath, especially when walking. She presented to the ED because her symptoms were getting worse. In the ED she had a leukocytosis of 13k and her CXR showed infiltrates in the right lung. She was not in respiratory distress. She was treated with Zosyn. Principal Diagnosis right-sided pneumonia Discharge Exam Constitutional average body habitus; no acute distress and no altered mental status ENMT external ear and nose normal, oropharynx normal Respiratory Auscultation: + diminished lung sounds (left base) and + rales (right base); no rhonchi and no wheezes Cardiovascular Rate/Rhythm: regular rate and regular rhythm Heart Sounds: normal S1 and normal S2; no murmur Vessels: posterior tibial pulses present and dorsalis pedis pulses present; no JVD Extremities: no edema Gastrointestinal (Abdomen) normal bowel sounds, soft, nontender, no hepatosplenomegaly Psychiatric A+Ox3, euthymic affect Discharge Data Allergies Allergy/AdvReac Type Severity Reaction Status Date / Time No Known Allergies Allergy Unknown Verified 10/26/18 12:28 Procedures Performed chest x-ray - IMPRESSION: Diffuse right mid and lower lung infiltrate. Operative changes consistent with a prior left pneumonectomy Hospital Course (1) Pneumonia: right sided, multifocal. treated with Zosyn IV, renally dosed, and then transitioned to oral doxycycline and oral augmentin at discharge for 7 days each. blood cultures remained negative while hospitalized. she improved clinically during her stay and was stable on her normal 2 liters NC at discharge. o2 sats were stable with walking on day of discharge. (2) Chronic respiratory failure with hypoxia: on 2 liters NC [id number]. stable O2 sats while hospitalized. (3) History of pneumonectomy: LEFT. for carcinoid tumor surgery was 13 years ago (4) Coronary artery disease: no chest pain pre-hospital or during the stay continue aspirin, metoprolol, and Plavix (5) H/O heart block: s/p permanent pacemaker placement in the past (6) Diabetes type 2, controlled: controlled during the stay Total Time Total Time Spent Total Time Spent (In Minutes): 35 Total Time Includes: Examination of the Patient, Discharge Planning, Medication Reconciliation and Communication With Other Providers Discharge Plan Discharge Items Patient Disposition: Home - Self-Care Reason For Visit: COMMUNITY ACQUIRED PNEUMONIA Discharge Diagnosis: right-sided pneumonia Discharge Goals: Diagnostic testing Activity: As commented below Activity Comment: take it easy for the next 3-4 days then gradually increase activities Non-emergency contact: Primary Care Provider Call non-emergency contact if: you have any medication questions, your symptoms worsen and your temperature is above 100.5 Follow-up/Referrals: Harman Fung MD [Primary Care Provider] - (see Dr Fung Tuesday or Tuesday of this coming week) Diet: Carb Consistent or DM2 and Heart Healthy Addtl Provider Instructions: From Jose F Aparicio - hospitalist - You were treated for right lung pneumonia during your stay. You improved nicely with antibiotics and time. Your oxygen levels on day of discharge were adequate on your normal home oxygen amount. The oxygen levels were also adequate when you walked in the hallway. At this time we recommend - 1. amoxicillin-clavulanate 1 tablet twice daily for 7 days. Start TONIGHT. 2. doxycycline 100mg twice a day for 7 days. Start TONIGHT. * the doxycycline can cause heartburn * it can also cause a rash if you go out in the sun while taking it; be sure to cover up and use sunscreen copiously for the next week 3. probiotics - 2 chew tabs three times a day for 7 days. Start TODAY. These hopefully will prevent diarrhea from your antibiotics. 4. use saline nasal spray for your nasal congestion. You may also use [id number] nasonex or flonase for congestion, if desired. 5. continue oxygen 2 liters as previous at all times. 6. [id number] mucinex every 12 hours as desired/needed for cough/congestion. Follow-up -- see Dr Fung early this week. Return to [facility] if -- * you have fevers over 100.5 degrees * you have worsening shortness of breath * you have increasing oxygen requirements (you have to increase the number of liters on your oxygen) * you have chest pain * you develop severe diarrhea * any other concerns Prescriptions: Continued atorvastatin 10 mg tablet 10 mg PO DAILY RF: 0 diltiazem HCl 240 mg capsule,extended release 24 hr 240 mg PO DAILY RF: 0 clopidogrel 75 mg tablet 75 mg PO DAILY RF: 0 amlodipine 5 mg tablet 5 mg PO DAILY RF: 0 aspirin [Aspir-81] 81 mg Tablet,Delayed Release (Dr/Ec) 81 mg PO DAILY RF: 0 isosorbide mononitrate 60 mg tablet extended release 24 hr 60 mg PO DAILY RF: 0 famotidine 20 mg tablet 20 mg PO DAILY RF: 0 ascorbic acid (vitamin C) [Vitamin C] 500 mg Tablet,Chewable 500 mg PO DAILY RF: 0 nitroglycerin 0.4 mg tablet, sublingual 0.4 mg sublingual Q5M PRN (Reason: Chest Pain) RF: 0 metoprolol tartrate 25 mg tablet 25 mg PO BID RF: 0 Lantus Solostar U-100 Insulin 100 unit/mL (3 mL) insulin pen 1 unit subcut UD RF: 0 Eliquis 5 mg tablet 5 mg PO BID RF: 0 Stand-Alone Forms: [facility] Discharge Orders: Discharge Order (Routine); Ordered 10/28/18 Ordered By: Jose F Aparicio Admission Data Admit Date/Time: 10/26/18 14:49 Attending Provider: Jose F Aparicio Admit Provider: Anton Hernandez Primary Care Provider: Harman Fung Other Providers: Gabe Romo Service: Medical Other Interventions: Discharge Summary Assessment (RN) Last Done: 10/28/18 15:05 Pending Studies at Discharge: No DC Date/Time DO NOT enter until pt leaves facility: 10/28/18 17:09
== END 2018-10-28 17:09 | disposition home or self-care (01) | DRG 194 ==
LOC: ED 11:37 → SUATTDRO 14:49 → 2N 14:49
DX: Z79.82 Long term (current) use of aspirin; Z79.4 Long term (current) use of insulin; Z79.01 Long term (current) use of anticoagulants; Z99.81 Dependence on supplemental oxygen; E11.9 Type 2 diabetes mellitus without complications; I25.10 Atherosclerotic heart disease of native coronary artery without angina pectoris; J96.11 Chronic respiratory failure with hypoxia; J18.9 Pneumonia, unspecified organism; Z66 Do not resuscitate

== ENCOUNTER 2019-05-08 08:31 | Inpatient (IN) ==
[2019-05-08] MEDS ORDERED: FUROSEMIDE 40 MG/4 ML VIAL IV STA (09:00)
[2019-05-08] MEDS ORDERED: dilTIAZem HCl 5 MG/ML 5 ML VIAL IV STA ×2 (09:00→11:06)
[2019-05-08 09:27] LABS: Basophils # (auto) 0.02 K/uL (0-0.2); Basophils % (auto) 0.2 %; Eosinophils # (auto) 0.02 K/uL (0-0.5); Eosinophils % (auto) 0.2 %; Hematocrit (blood only) 37.9 % (37-47); Hemoglobin 12.5 g/dL (12.0-16.0); Immature Granulocytes # (auto) 0.04 K/uL (0.00-0.02); Immature Granulocytes % (auto) 0.3 %; Lymphocytes # (auto) 1.71 K/uL (1.2-3.4); Lymphocytes % (auto) 14.9 %; Mean Corpuscular Hemoglobin 29.7 pg (25-34); Mean Platelet Volume 10.4 fL (7.4-10.4); Monocytes # (auto) 1.04 K/uL (0.11-0.59); Neutrophils # (auto) 8.68 K/uL (1.4-6.5); Neutrophils % (auto) 75.4 %; Platelet Count 291 K/uL (130-400); RDW Coefficient of Variation 14.9 % (11.5-14.5); Red Blood Count 4.21 M/uL (4.2-5.4); White Blood Count 11.51 K/uL (4.8-10.8)
--- NOTE | 2019-05-08 09:34 | XRay Report ---
XR chest 1V portable HISTORY: Dyspnea COMPARISON: Chest 10/26/2018. FINDINGS: Prior total left pneumonectomy. Left-sided posterior pacemaker is again noted. Left mediast inal shift, unchanged. Progressive interstitial thickening and a small right pleural effusion within the right lung. This suggests pulmonary edema. No pneumothorax. Old, healed left-sided rib fractures. IMPRESSION: 1. Interval progression of the right lung interstitial thickening and a small right pleural effusion. This likely represents pulmonary edema. 2. Prior left pneumonectomy. Electronically signed by: Julio Bruce M.D. 05/08/2019 9:32 AM
[2019-05-08 09:40] LABS: INR 1.1 (0.9-1.1); Partial Thromboplastin Ratio 1.1; Partial Thromboplastin Time 29.8 Seconds (21.0-31.0); Prothrombin Time 11.5 Seconds (9.0-12.0)
[2019-05-08 09:43] LABS: Albumin Level 3.7 gm/dl (3.4-5.0); BUN Creatinine Ratio 16.6 (10-20); Calcium 9.9 mg/dl (8.5-10.1); Creatinine Clr Calc Pharmacy 23.8 ml/min; Est GFR (African American) 37.1; Magnesium 2.1 mg/dl (1.8-2.4); Potassium 4.2 mmol/L (3.5-5.1)
[2019-05-08 09:50] LABS: Albumin Globulin Ratio 0.9 (0.9-2); Bilirubin,Total 0.9 mg/dl (0.2-1); Globulin 4.3 gm/dl (2.5-4.0); Troponin I 0.288 ng/ml (0-0.045)
[2019-05-08] MEDS ORDERED: NITROGLYCERIN 2% OINTMENT 30GM TUBE EXT STA (09:56)
[2019-05-08] MEDS ORDERED: NITROGLYCERIN 2% OINTMENT 30GM TUBE ONE (09:56)
[2019-05-08] MEDS ORDERED: NON-FORMULARY MEDICATION (Diltiazem Hcl 240 MG) PO SCH (11:17)
[2019-05-08 11:26] LABS: Appearance Urine Cloudy (Clear); Bacteria Urine Automated 1+ (Negative); Bilirubin Urine Negative (Negative); Blood Urine Trace (Negative); Color Urine Yellow; Epithelial Cell Urine Auto >30 /lpf (0-5); Glucose Urine UA Negative (Negative); Ketones Urine Negative (Negative); Leukocyte Esterase Urine 2+ (Negative); Nitrite Urine Negative (Negative); Protein Urine 3+ (Negative); RBC Urine Automated 0-4 /hpf (0-4); Specific Gravity Urine 1.017 (1.000-1.030); Urobilinogen Urine Negative (Negative)
--- NOTE | 2019-05-08 11:38 | History & Physical Report ---
Date of Service May 08, 2019 Assessment & Plan (1) Acute and chronic respiratory failure with hypoxia: 78-year-old female was admitted on 08 May 2019 for progressively worsening respiratory status over past couple weeks. Acute on chronic hypoxic respiratory failure: Progressively worsening over the past couple weeks. Presently requiring significant oxygen supplementation with desats to low 80% if HFNC is removed > 30 seconds. Does not want BiPAP. - At home is on baseline 2 -4 L NC. March 2019 pulmonology note mentions patient does not want further testing done. - In ED, afebrile, at times tachycardic, is tachypneic and hypertensive, requiring HFNC oxygen for SpO2 92%. WBC 11. EKG is A. fib with RVR rate 141 and LBBB (September 2018 comparison also with LBBB). Admit TnI 0.288. pCXR suggestive of right lung interstitial thickening and small right pleural effusion. - Will order CT of her chest, ABG, and procalcitonin. Continue HFNC oxygen for goal SpO2 >90%. Scheduled albuterol nebs. Continue home Brovana. Consult pulmonology. Acute on chronic diastolic CHF exacerbation: Pulm edema seen on pCXR. - At home is on Lasix 40 mg daily and metolazone 5 mg daily. Does not watch her salt intake. - In ED, treated with Lasix 40 mg IV and nitroglycerin. - May need further Lasix depending on overall respiratory status and control of her afib with RVR. Otherwise resume home meds for now. Atrial fibrillation with RVR: H paroxysmal afib. On Eliquis. Patient is likely not taking her home medicines regularly. Did not take her home meds on morning of admit. - In ED, treated with Cardizem 20 mg IV and nitroglycerin. - Will give her morning doses of metoprolol tartrate 25 mg and diltiazem ER 240 mg on admit. Continued cardiac monitoring. Recheck troponin. Hyponatremia: Admit Na 130. May be from relative hypovolemia. Fluid balance will be tricky given current pulmonary edema. Continue monitoring. Ongoing medical issues: - Hypertension, hyperlipidemia, CAD, heart block and pacemaker: Continue home amlodipine, aspirin, atorvastatin, Plavix, diltiazem, metoprolol, Imdur. - Diabetes type 2: Feb 2019 HbA1c was 6.3. Continue home lantus 30 units daily. Added insulin sliding scale. - Chronic renal insufficiency, right renal artery stenosis: Admit Cr 1.5 (improved from baseline around 1.8). Continue home aspirin and Plavix. - GERD: Continue home famotidine. Code status: DNR/DNI (patient says same as prior admit wishes family aware). Diet: Regular, low salt. DVT prophy: Elidustinis PT/OT: Deferred initially. Disbo: Admit to PCU. - Consult palliative care for continued goals of care discussion. (2) Acute on chronic diastolic (congestive) heart failure: (3) Atrial fibrillation with rapid ventricular response: (4) Hyponatremia: (5) Hypertension: (6) Hyperlipemia: (7) Coronary artery disease, occlusive: (8) H/O heart block: (9) Diabetes type 2, controlled: (10) Chronic renal insufficiency: (11) Renal artery stenosis: (12) Esophageal reflux: History of Present Illness Primary Care Provider: Jose F Fung MD 78-year-old female presents saying that she has had progressively worsening difficulty breathing over the past couple of weeks. She says she does not want to be in the hospital but that her continue denying her about it. She notes an ongoing cough with minimal production. No known fevers or vomiting. Also notes decreased food intake. She attributes this to having to take "so many pills", each with a sip of water, which fills her up. She often forgets to take some of her medicines till evening as well. She says her chest only hurts with the cough. Notes some worsening leg edema during this time as well. On ROS, perhaps some constipation but had a bowel movement yesterday. No other acute patient concerns. - Overall, patient says she would not like to have further significant diagnostic testing to figure out what the cause of her respiratory failure is, however she would agree to a CT scan of her chest on admission. - Patient also says that she would not like to be on any sort of respiratory mask to help her breathe. Initially she did not like the high flow nasal cannula but says she is getting used to it. When asked, patient says that she does not wish to be intubated in case of respiratory failure nor does she want to have CPR. She says that her family is aware of this and that she had the same wishes on her last hospitalization. - Past medical history includes hypertension, hyperlipidemia, CAD, heart block, diabetes type 2, chronic renal insufficiency, right renal artery stenosis, chronic hypoxic respiratory failure, interstitial lung disease, left lung carcinoid tumor, GERD, pneumonia, left rib fractures - Past surgical history includes pacemaker placement, left pneumonectomy (? 2005), cholecystectomy, hysterectomy - Social history includes never smoked. Denies alcohol use. Lives at home with (PMH dementia) with three daughters nearby. Allergies Allergy/AdvReac Type Severity Reaction Status Date / Time No Known Drug Allergies Allergy Verified 05/08/19 09:21 Home Medications Home Medications Medication Instructions Recorded Confirmed Type amlodipine 5 mg PO DAILY 10/26/18 05/08/19 History ascorbic acid (vitamin C) [Vitamin 500 mg PO DAILY 10/26/18 05/08/19 History C] aspirin [Aspir-81] 81 mg PO DAILY 10/26/18 05/08/19 History diltiazem HCl 240 mg PO DAILY 10/26/18 05/08/19 History metoprolol tartrate 25 mg PO BID 10/26/18 05/08/19 History nitroglycerin 0.4 mg sublingual 0.4 mg SUBLINGUAL .COMPLEX PRN #25 01/05/19 05/08/19 Rx tablet tab blood sugar diagnostic #10 ea 01/12/19 04/04/19 History lancets #50 ea 01/12/19 04/04/19 History metolazone 5 mg tablet 5 mg PO DAILY #30 tab 01/12/19 05/08/19 History triamcinolone acetonide 0.1 % 1 appln TOP BID PRN #80 gm MDD bid 01/30/19 05/08/19 Rx topical cream famotidine 20 mg tablet 20 mg PO DAILY #90 tab 02/09/19 05/08/19 Rx furosemide 40 mg tablet 40 mg PO DAILY #90 tab 02/09/19 05/08/19 Rx insulin glargine 100 unit/mL (3 30 units SUBCUT DAILY #15 ml 03/02/19 05/08/19 Rx mL) subcutaneous pen cholecalciferol (vitamin D3) 50 2,000 units PO DAILY 04/04/19 05/08/19 History mcg (2,000 unit) capsule pen needle, diabetic 31 gauge x #90 ea 04/10/19 Rx /16" clopidogrel 75 mg tablet 75 mg PO DAILY #90 tab 04/16/19 05/08/19 Rx albuterol sulfate 2.5 mg/3 mL 2.5 mg INHALATION .COMPLEX 90 Days 05/07/19 05/08/19 Rx (0.083 %) solution for nebulization #1080 ml arformoterol 15 mcg/2 mL solution 15 mcg INHALATION .COMPLEX #180 ml 05/07/19 05/08/19 Rx for nebulization atorvastatin 10 mg tablet 10 mg PO DAILY #90 tab 05/07/19 05/08/19 Rx ipratropium bromide 0.02 % 0.5 mg INHALATION Q4H PRN #450 ml 05/07/19 05/08/19 Rx solution for inhalation isosorbide mononitrate 60 mg See Rx Instructions .ROUTE 05/07/19 05/08/19 Rx tablet,extended release 24 hr .COMPLEX #90 tablet apixaban [Eliquis] 2.5 mg PO BID 05/08/19 05/08/19 History Past Med/Surg History Medical History H/O heart block Influenza A (Resolved 07/06/14) Pneumonia (Resolved) Surgical History History of cholecystectomy History of hysterectomy History of pneumonectomy (Resolved) S/P partial lobectomy of lung S/P pneumonectomy (Resolved) Family History Other Diabetes Hypertension Social History Preferred Language: [place] Communication Ability: Effective 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 Beliefs That Will Affect Care: None marital status: Current Living Situation: Spouse current occupational status: retired Other Information That Helps Us Care for You: No Feels Safe at Home: Yes Safety Concerns: Feels Safe At This Time Smoking Status: Never smoker Do You Dip or Chew Tobacco: No ; Second Hand Exposure: No ; Tobacco Cessation Education Requested by Patient: No Hx Alcohol Use: No Hx Substance Use: No Review of Systems Review of Systems: Constitutional: Denies fevers, chills, focal weakness Eyes: Denies any visual loss or diplopia ENT: Denies any ear/nose/throat pain or difficulty speaking or swallowing Respiratory: Positive ongoing dyspnea. Mostly dry cough. Cardiovascular: Denies any overt chest pain. Positive peripheral edema. Gastrointestinal: Denies any abdominal pain, nausea/vomiting/diarrhea. Perhaps some constipation. Musculoskeletal: Denies any acute extremity pains, myalgias, or focal weakness Skin: Denies any known acute rashes or lesions Neuro: Denies any headache, acute focal weakness or numbness, or difficulties with speech or swallow. Physical Exam Physical Exam: GENERAL: Awake, alert and oriented, with HFNC oxygen in place. Speaking in 3-4 word sentences, obviously dyspneic, but does not appear in physical pain. HENT: Normocephalic, atraumatic. Oropharynx dry. EYES: Normal conjunctiva. Sclera non-icteric. NECK: Inspection normal. Supple and full ROM. No nuchal rigidity. CARDIAC: +S1S2 irregularly irregular tachycardia, no murmurs. RESPIRATORY: Distant breath sounds throughout on HFNC. GI: +BS, soft, non-distended. No tenderness to palpation. No rebound or guarding. EXTREMITIES: No calf tenderness. Moving all extremities naturally and easily. 1+ bilateral caro edema. NEURO: No gross neuro deficits. Results & Data Vital Signs (Past 12 Hours) Vital Signs Temp Pulse Pulse Resp BP BP Pulse Ox 05/08/19 11:04 120 H 20 188/80 H 96 05/08/19 09:59 100 H 32 H 92 05/08/19 09:41 97 H 30 H 165/137 H 98 05/08/19 08:56 99 05/08/19 08:45 36.8 C 123 H 22 169/93 H 99 Laboratory Results 05/08/19 05/08/19 05/08/19 Range/Units 11:10 09:15 09:15 WBC (4.8-10.8) K/uL RBC (4.2-5.4) M/uL Hgb (12.0-16.0) g/dL Hct (37-47) % MCV (80-100) fL MCH (25-34) pg MCHC (32-36) g/dL RDW Std Deviation (36.4-46.3) fL RDW Coeff of Kimberley (11.5-14.5) % Plt Count (130-400) K/uL MPV (7.4-10.4) fL Immature Gran % (Auto) % Neut % (Auto) % Lymph % (Auto) % Stevens % (Auto) % Eos % (Auto) % Baso % (Auto) % Immature Gran # (Auto) (0.00-0.02) K/uL Neut # (Auto) (1.4-6.5) K/uL Lymph # (Auto) (1.2-3.4) K/uL Stevens # (Auto) (0.11-0.59) K/uL Eos # (Auto) (0-0.5) K/uL Baso # (Auto) (0-0.2) K/uL PT 11.5 (9.0-12.0) Seconds INR 1.1 (0.9-1.1) APTT 29.8 (21.0-31.0) Seconds PTT Ratio 1.1 Sodium 130 L (136-145) mmol/L Potassium 4.2 (3.5-5.1) mmol/L Chloride 92 L (98-107) mmol/L Carbon Dioxide 28 (21-32) mmol/L Anion Gap 10.0 (3-11) BUN 25 H (7-18) mg/dl Creatinine 1.52 H (0.6-1.2) mg/dl Est Cr Clr Drug Dosing 23.8 ml/min Est GFR ( Amer) 37.1 Est GFR (Non-Af Amer) 32.0 BUN/Creatinine Ratio 16.6 (10-20) Glucose 118 H (70-99) mg/dl Calcium 9.9 (8.5-10.1) mg/dl Magnesium 2.1 (1.8-2.4) mg/dl Total Bilirubin 0.9 (0.2-1) mg/dl AST 31 (15-37) U/L ALT 17 (12-78) U/L Alkaline Phosphatase 93 (45-117) U/L Troponin I 0.288 H* (0-0.045) ng/ml Total Protein 8.0 (6.4-8.2) gm/dl Albumin 3.7 (3.4-5.0) gm/dl Globulin 4.3 H (2.5-4.0) gm/dl Albumin/Globulin Ratio 0.9 (0.9-2) Urine Color Yellow Urine Appearance Cloudy A (Clear) Urine pH 6.0 (4.5-7.5) Ur Specific [place] 1.017 (1.000-1.030) Urine Protein 3+ H (Negative) Urine Glucose (UA) Negative (Negative) Urine Ketones Negative (Negative) Urine Blood Trace H (Negative) Urine Nitrite Negative (Negative) Urine Bilirubin Negative (Negative) Urine Urobilinogen Negative (Negative) Ur Leukocyte Esterase 2+ H (Negative) Urine WBC (Auto) 10-30 H (0-5) /hpf Urine RBC (Auto) 0-4 (0-4) /hpf U Hyaline Cast (Auto) 1-5 (0-5) /lpf U Epithel Cells (Auto) >30 H (0-5) /lpf Urine Bacteria (Auto) 1+ H (Negative) 05/08/19 Range/Units 09:15 WBC 11.51 H (4.8-10.8) K/uL RBC 4.21 (4.2-5.4) M/uL Hgb 12.5 (12.0-16.0) g/dL Hct 37.9 (37-47) % MCV 90.0 (80-100) fL MCH 29.7 (25-34) pg MCHC 33.0 (32-36) g/dL RDW Std Deviation 49.0 H (36.4-46.3) fL RDW Coeff of Kimberley 14.9 H (11.5-14.5) % Plt Count 291 (130-400) K/uL MPV 10.4 (7.4-10.4) fL Immature Gran % (Auto) 0.3 % Neut % (Auto) 75.4 % Lymph % (Auto) 14.9 % Stevens % (Auto) 9.0 % Eos % (Auto) 0.2 % Baso % (Auto) 0.2 % Immature Gran # (Auto) 0.04 H (0.00-0.02) K/uL Neut # (Auto) 8.68 H (1.4-6.5) K/uL Lymph # (Auto) 1.71 (1.2-3.4) K/uL Stevens # (Auto) 1.04 H (0.11-0.59) K/uL Eos # (Auto) 0.02 (0-0.5) K/uL Baso # (Auto) 0.02 (0-0.2) K/uL PT (9.0-12.0) Seconds INR (0.9-1.1) APTT (21.0-31.0) Seconds PTT Ratio Sodium (136-145) mmol/L Potassium (3.5-5.1) mmol/L Chloride (98-107) mmol/L Carbon Dioxide (21-32) mmol/L Anion Gap (3-11) BUN (7-18) mg/dl Creatinine (0.6-1.2) mg/dl Est Cr Clr Drug Dosing ml/min Est GFR ( Amer) Est GFR (Non-Af Amer) BUN/Creatinine Ratio (10-20) Glucose (70-99) mg/dl Calcium (8.5-10.1) mg/dl Magnesium (1.8-2.4) mg/dl Total Bilirubin (0.2-1) mg/dl AST (15-37) U/L ALT (12-78) U/L Alkaline Phosphatase (45-117) U/L Troponin I (0-0.045) ng/ml Total Protein (6.4-8.2) gm/dl Albumin (3.4-5.0) gm/dl Globulin (2.5-4.0) gm/dl Albumin/Globulin Ratio (0.9-2) Urine Color Urine Appearance (Clear) Urine pH (4.5-7.5) Ur Specific [place] (1.000-1.030) Urine Protein (Negative) Urine Glucose (UA) (Negative) Urine Ketones (Negative) Urine Blood (Negative) Urine Nitrite (Negative) Urine Bilirubin (Negative) Urine Urobilinogen (Negative) Ur Leukocyte Esterase (Negative) Urine WBC (Auto) (0-5) /hpf Urine RBC (Auto) (0-4) /hpf U Hyaline Cast (Auto) (0-5) /lpf U Epithel Cells (Auto) (0-5) /lpf Urine Bacteria (Auto) (Negative) Medications Administered Discontinued Medications Diltiazem HCl (Cardizem) 20 mg IV NOW STA Stop: 05/08/19 09:01 Last Admin: 05/08/19 09:25 Dose: 20 mg Documented by: [id number] Cosigned by: [id number] Diltiazem HCl (Cardizem) 10 mg IV NOW STA Stop: 05/08/19 11:07 Last Admin: 05/08/19 11:21 Dose: Not Given Documented by: [id number] Furosemide (Lasix) 40 mg IV NOW STA Stop: 05/08/19 09:01 Last Admin: 05/08/19 09:25 Dose: 40 mg Documented by: [id number] Nitroglycerin (Nitro-Bid 2%) Confirm Administered Dose 18 inch .ROUTE .STK-MED ONE Stop: 05/08/19 09:57 Last Admin: 05/08/19 09:59 Dose: Not Given Documented by: [id number] Nitroglycerin (Nitro-Bid 2%) 1 inch EXT NOW STA Stop: 05/08/19 09:57 Last Admin: 05/08/19 10:00 Dose: 1 inch Documented by: [id number] Code Status & VTE Plan Code Status DNR/DNI. VTE Prophylaxis Plan VTE Prophylaxis will be ordered: Yes Supervising Physician Co-Signing Physician Notes I supervised Tim Bartlett MD on this patient's care. I examined the patient today independently of him. I discussed the plan of care with him with the plan being as written in his note except for any following changes/exceptions: None. 78yo F w/ hx of pneumonectomy for a carcinoid tumor who presents with shortness of breath and likely volume overload. Likely not taking her meds as prescribed. - Lasix, diuresis - Supplemental O2 as needed Resident Activity Tracking Resident Involvement: Resident Care Provided Care Provided: Adult Hospital Medicine
[2019-05-08] MEDS: METOPROLOL TARTRATE 25 MG TAB PO SCH ×2 (11:57→20:29)
[2019-05-08] MEDS: dilTIAZem HCL 240 MG CAPCR PO SCH (11:57)
[2019-05-08] MEDS ORDERED: IPRATROPIUM BROMIDE NEB SOLN 0.02% 2.5 ML VIAL INH PRN (14:12)
[2019-05-08] MEDS ORDERED: metOLazone 5 MG TABLET PO SCH (14:12)
[2019-05-08] MEDS ORDERED: GLUCOSE 40% GEL 15 GM TUBE PO PRN (14:12)
[2019-05-08] MEDS ORDERED: GLUCOSE 10 TABS/TUBE PO PRN (14:12)
[2019-05-08] MEDS ORDERED: GLUCAGON FOR INJ 1 MG VIAL SQ PRN (14:12)
[2019-05-08] MEDS ORDERED: CARBOHYDRATES FOR HYPOGLYCEMIA PO PRN (14:12)
[2019-05-08 14:44] LABS: Allen Test Pos (Pos); Base Excess ABG 6.2 mEq/L (-9-1.8); HCO3 ABG 31 mmol/L (19-24); PCO2 ABG 44 mmHg (35-46); PO2 ABG 76 mm/Hg (80-95); pH ABG 7.46 (7.35-7.45)
[2019-05-08] MEDS: INSULIN ASPART 100 UNITS/ML 3 ML PEN SC SCH ×3 (14:56→20:29)
[2019-05-08] MEDS ORDERED: methylPREDNISolone 40 MG in SYRINGE 0 ML IV SCH (15:00)
--- NOTE | 2019-05-08 15:16 | Emergency Department Note ---
Entered by Gabe Irving acting as a scribe for History of Present Illness General Chief complaint: Shortness of Breath/Dyspnea Time Seen by Provider: 05/08/19 08:46 Source: patient History of Present Illness Provider complaint: Shortness of breath Onset (ago): day(s) (Past few days) Location: chest Severity: similar to prior episodes Pain Consistency: + constant Relieved By: + none Associated symptoms: + cough; no chest pain and no fever/chills The patient is an 78 year old female who presents to the Emergency Room with complaints of worsening shortness of breath that started a few days ago. The patient reports that she has had a productive cough for some time where she wo uld bring up mucous, however over the past couple of days her cough has been dry. The patient states that she has increased her supplemental oxygen from 2L to 4L. The patient adds that she did take her medications last night including her water pill and Plavix, however per the patient's EMR she has only been taking her water pill in the morning when she is supposed to be taking it BID. The patient has been taking Nitro for her breathing issues but it has not been effective. 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 The patient denies any chest pain or fevers. Home Medications Home Medications Medication Instructions Recorded Confirmed Type amlodipine 5 mg PO DAILY 10/26/18 05/08/19 History ascorbic acid (vitamin C) [Vitamin 500 mg PO DAILY 10/26/18 05/08/19 History C] aspirin [Aspir-81] 81 mg PO DAILY 10/26/18 05/08/19 History diltiazem HCl 240 mg PO DAILY 10/26/18 05/08/19 History metoprolol tartrate 25 mg PO BID 10/26/18 05/08/19 History nitroglycerin 0.4 mg sublingual 0.4 mg SUBLINGUAL .COMPLEX PRN #25 01/05/19 05/08/19 Rx tablet tab blood sugar diagnostic #10 ea 01/12/19 04/04/19 History lancets #50 ea 01/12/19 04/04/19 History metolazone 5 mg tablet 5 mg PO DAILY #30 tab 01/12/19 05/08/19 History triamcinolone acetonide 0.1 % 1 appln TOP BID PRN #80 gm MDD bid 01/30/19 05/08/19 Rx topical cream famotidine 20 mg tablet 20 mg PO DAILY #90 tab 02/09/19 05/08/19 Rx furosemide 40 mg tablet 40 mg PO DAILY #90 tab 02/09/19 05/08/19 Rx insulin glargine 100 unit/mL (3 30 units SUBCUT DAILY #15 ml 03/02/19 05/08/19 Rx mL) subcutaneous pen cholecalciferol (vitamin D3) 50 2,000 units PO DAILY 04/04/19 05/08/19 History mcg (2,000 unit) capsule pen needle, diabetic 31 gauge x #90 ea 04/10/19 Rx 5/16" clopidogrel 75 mg tablet 75 mg PO DAILY #90 tab 04/16/19 05/08/19 Rx albuterol sulfate 2.5 mg/3 mL 2.5 mg INHALATION .COMPLEX 90 Days 05/07/19 05/08/19 Rx (0.083 %) solution for nebulization #1080 ml arformoterol 15 mcg/2 mL solution 15 mcg INHALATION .COMPLEX #180 ml 05/07/19 05/08/19 Rx for nebulization atorvastatin 10 mg tablet 10 mg PO DAILY #90 tab 05/07/19 05/08/19 Rx ipratropium bromide 0.02 % 0.5 mg INHALATION Q4H PRN #450 ml 05/07/19 05/08/19 Rx solution for inhalation isosorbide mononitrate 60 mg See Rx Instructions .ROUTE 05/07/19 05/08/19 Rx tablet,extended release 24 hr .COMPLEX #90 tablet apixaban [Eliquis] 2.5 mg PO BID 05/08/19 05/08/19 History Allergies Allergy/AdvReac Type Severity Reaction Status Date / Time No Known Drug Allergies Allergy Verified 05/08/19 09:21 Past Med/Surg History Medical History (Updated 05/09/19 @ 13:31 by Canelo Bal MD) Goals of care, counseling/discussion H/O heart block Influenza A (Resolved 07/06/14) Pneumonia (Resolved) Surgical History History of cholecystectomy History of hysterectomy History of pneumonectomy (Resolved) S/P partial lobectomy of lung S/P pneumonectomy (Resolved) Family History Other Diabetes Hypertension Social History Preferred Language: Norwegian Communication Ability: Effective [facility] Administrator Required: No Beliefs That Will Affect Care: None marital status: Current Living Situation: Spouse current occupational status: retired Other Information That Helps Us Care for You: No Feels Safe at Home: Yes Safety Concerns: Feels Safe At This Time Smoking Status: Never smoker Do You Dip or Chew Tobacco: No ; Second Hand Exposure: No ; Tobacco Cessation Education Requested by Patient: No Hx Alcohol Use: No Hx Substance Use: No Review of Systems See HPI for pertinent positives & negatives. and A total of 10 systems reviewed and were otherwise negative Physical Exam Vital Signs Vital Signs - 24 hr 05/08/19 08:45 05/08/19 08:56 05/08/19 09:41 Temperature 36.8 C Temperature Source Oral Pulse Rate 123 H Pulse Rate [Left Finger] 97 H Pulse Rate from SpO2 Sensor Respiratory Rate 22 30 H Respiratory Effort / Characteristics Blood Pressure 169/93 H Blood Pressure [Right Arm] 165/137 H Blood Pressure Mean 118 Blood Pressure Mean [Right Arm] 146 Pulse Oximetry 99 99 98 Oxygen Delivery Method Nasal Cannula Nasal Cannula Non-rebreather Oxygen Flow Rate 3 3 15 Fraction of Inspired Oxygen Sepsis Recent Fever Within 48 Hours No Sepsis New/Unexplained Change in Mental Status No Sepsis Action Taken by Nursing No Action Required 05/08/19 09:59 05/08/19 11:00 05/08/19 11:04 Temperature Temperature Source Pulse Rate 98 H Pulse Rate [Left Finger] 100 H 120 H Pulse Rate from SpO2 Sensor 113 H Respiratory Rate 32 H 20 20 Respiratory Effort / Characteristics Spontaneous Labored Short of Breath Blood Pressure 188/80 H Blood Pressure [Right Arm] 188/80 H Blood Pressure Mean 154 Blood Pressure Mean [Right Arm] 116 Pulse Oximetry 92 95 96 Oxygen Delivery Method High Flow Nasal Cannula High Flow Nasal Cannula High Flow Nasal Cannula Oxygen Flow Rate 25 35 Fraction of Inspired Oxygen 55 Sepsis Recent Fever Within 48 Hours Sepsis New/Unexplained Change in Mental Status Sepsis Action Taken by Nursing Vital signs reviewed. General: Elderly, chronically ill-appearing 78 year old female on [place] oxygen. HEENT: No scleral icterus, PERRLA, neck supple. Atraumatic. Cardiovascular: Tachycardic rate and irregular rhythm, systolic injection murmur. Pulmonary: Abnormal left chest breath sounds (pneumonectomy). Right side has diffuse crackles with scattered rhonchi. Increased WOB Abdomen: Soft, nontender, nondistended, positive bowel sounds. Musculoskeletal: Atraumatic, no peripheral edema. Neurologic: Patient awake alert and oriented x 3 Skin: Warm, dry, no rash Course Course 0858: Past medical records reviewed. The patient was evaluated in room A11B, and a complete history and physical examination were performed. 0948: The patient is being noncompliant, ripping out her supplemental oxygen. 1010: I spoke to Dr. Bal [facility] Hospitalist about the patient's case. He is going to accept the patient for further evaluation. Consultations Consultation #1: I spoke to Dr. Bal [facility] Hospitalist about the patient's case. He is going to accept the patient for further evaluation. Time: 10:10 Administered Medications Amlodipine Besylate (Norvasc) 5 mg PO DAILY [facility] Stop: 06/08/19 08:59 Last Admin: 05/11/19 07:40 Dose: 5 mg Documented by: [id number] Admin: 05/10/19 07:53 Dose: 5 mg Documented by: [id number] Admin: 05/09/19 08:55 Dose: 5 mg Documented by: [id number] Apixaban (Eliquis) 2.5 mg PO BID [facility] Stop: 06/07/19 20:59 Last Admin: 05/11/19 07:38 Dose: 2.5 mg Documented by: [id number] Admin: 05/10/19 20:46 Dose: 2.5 mg Documented by: [id number] Admin: 05/10/19 07:55 Dose: 2.5 mg Documented by: [id number] Admin: 05/09/19 21:08 Dose: Not Given Documented by: [id number] Admin: 05/09/19 08:26 Dose: 2.5 mg Documented by: [id number] Admin: 05/08/19 20:25 Dose: 2.5 mg Documented by: [id number] Arformoterol Tartrate (Brovana Neb) 15 mcg INH BIDR [facility] Stop: 06/07/19 18:59 Last Admin: 05/11/19 06:53 Dose: 15 mcg Documented by: [id number] Admin: 05/10/19 19:48 Dose: 15 mcg Documented by: [id number] Admin: 05/10/19 07:08 Dose: 15 mcg Documented by: [id number] Admin: 05/09/19 19:24 Dose: 15 mcg Documented by: [id number] Admin: 05/09/19 06:55 Dose: 15 mcg Documented by: [id number] Admin: 05/08/19 20:07 Dose: 15 mcg Documented by: [id number] Ascorbic Acid (Vitamin C) 500 mg PO DAILY [facility] Stop: 06/08/19 08:59 Last Admin: 05/11/19 07:39 Dose: Not Given Documented by: [id number] Admin: 05/10/19 07:52 Dose: 500 mg Documented by: [id number] Admin: 05/09/19 08:25 Dose: 500 mg Documented by: [id number] Aspirin (Ecotrin Ectab) 81 mg PO DAILY [facility] Stop: 06/07/19 14:11 Last Admin: 05/11/19 07:41 Dose: 81 mg Documented by: [id number] Admin: 05/10/19 07:52 Dose: 81 mg Documented by: [id number] Admin: 05/09/19 08:26 Dose: 81 mg Documented by: [id number] Admin: 05/08/19 15:33 Dose: 81 mg Documented by: [id number] Atorvastatin Calcium (Lipitor) 10 mg PO DAILY [facility] Stop: 06/08/19 08:59 Last Admin: 05/11/19 07:38 Dose: 10 mg Documented by: [id number] Admin: 05/10/19 07:53 Dose: 10 mg Documented by: [id number] Admin: 05/09/19 08:25 Dose: 10 mg Documented by: [id number] Clopidogrel Bisulfate (Plavix) 75 mg PO DAILY [facility] Stop: 06/07/19 14:11 Last Admin: 05/11/19 07:40 Dose: 75 mg Documented by: [id number] Admin: 05/10/19 07:54 Dose: 75 mg Documented by: [id number] Admin: 05/09/19 08:26 Dose: 75 mg Documented by: [id number] Admin: 05/08/19 15:33 Dose: 75 mg Documented by: [id number] Diltiazem HCl (Cardizem Cd) 240 mg PO DAILY [facility] Stop: 06/07/19 11:44 Last Admin: 05/11/19 07:41 Dose: 240 mg Documented by: [id number] Admin: 05/10/19 07:55 Dose: 240 mg Documented by: [id number] Admin: 05/09/19 08:25 Dose: 240 mg Documented by: [id number] Admin: 05/08/19 11:57 Dose: 240 mg Documented by: [id number] Famotidine (Pepcid) 20 mg PO DAILY [facility] Stop: 06/08/19 08:59 Last Admin: 05/11/19 07:39 Dose: Not Given Documented by: [id number] Admin: 05/10/19 07:55 Dose: 20 mg Documented by: [id number] Admin: 05/09/19 08:26 Dose: 20 mg Documented by: [id number] Glucose (Glucose 40%) 15 - 30 gm PO UD PRN; Protocol PRN Reason: Hypoglycemia Protocol Stop: 06/07/19 14:11 Last Admin: 05/11/19 07:21 Dose: 15 gm Documented by: [id number] Lorazepam (Ativan) 0.5 mg in 1 mls @ 1 mls/min IV Q4H PRN PRN Reason: Anxiety/Agitation Stop: 06/07/19 18:40 Last Admin: 05/09/19 18:22 Dose: 1 mls/min Documented by: [id number] Admin: 05/09/19 14:27 Dose: 1 mls/min Documented by: [id number] Ceftriaxone Sodium 1,000 mg/ (Dextrose) 50 mls @ 100 mls/hr IV Q24H [facility]; Protocol Stop: 05/17/19 13:29 Last Infusion: 05/10/19 14:37 Dose: 0 mls/hr Documented by: [id number] Admin: 05/10/19 14:15 Dose: 100 mls/hr Documented by: [id number] Azithromycin 500 mg/ Dextrose 255 mls @ 125 mls/hr IV Q24H [facility] Stop: 05/17/19 15:59 Last Infusion: 05/10/19 17:39 Dose: 0 mls/hr Documented by: [id number] Admin: 05/10/19 15:30 Dose: 125 mls/hr Documented by: [id number] Insulin Aspart (Novolog Flexpen) 0 units SC ACHS [facility] Stop: 06/07/19 14:11 Last Admin: 05/11/19 07:34 Dose: Not Given Documented by: [id number] Cosigned by: [id number] Admin: 05/10/19 21:15 Dose: Not Given Documented by: [id number] Cosigned by: [id number] Admin: 05/10/19 17:01 Dose: 3 units Documented by: [id number] Cosigned by: [id number] Admin: 05/10/19 11:44 Dose: 2 units Documented by: [id number] Cosigned by: [id number] Admin: 05/10/19 07:58 Dose: 4 units Documented by: [id number] Cosigned by: [id number] Admin: 05/09/19 21:09 Dose: Not Given Documented by: [id number] Cosigned by: [id number] Admin: 05/09/19 17:13 Dose: 1 units Documented by: [id number] Cosigned by: [id number] Admin: 05/09/19 12:11 Dose: 8 units Documented by: [id number] Cosigned by: [id number] Admin: 05/09/19 08:27 Dose: 3 units Documented by: [id number] Cosigned by: [id number] Admin: 05/08/19 20:29 Dose: Not Given Documented by: [id number] Cosigned by: [id number] Admin: 05/08/19 17:21 Dose: Not Given Documented by: [id number] Cosigned by: [id number] Admin: 05/08/19 14:56 Dose: Not Given Documented by: [id number] Cosigned by: [id number] Metoprolol Tartrate (Lopressor) 25 mg PO BID [facility] Stop: 06/07/19 11:16 Last Admin: 05/11/19 07:40 Dose: 25 mg Documented by: [id number] Admin: 05/10/19 20:47 Dose: 25 mg Documented by: [id number] Admin: 05/10/19 07:54 Dose: 25 mg Documented by: [id number] Admin: 05/09/19 21:09 Dose: Not Given Documented by: [id number] Admin: 05/09/19 08:25 Dose: 25 mg Documented by: [id number] Admin: 05/08/19 20:29 Dose: 25 mg Documented by: [id number] Admin: 05/08/19 11:57 Dose: 25 mg Documented by: [id number] Morphine Sulfate (Morphine Sulfate) 1 mg IV Q2H PRN PRN Reason: Shortness Of Breath Stop: 05/22/19 18:40 Last Admin: 05/08/19 22:31 Dose: 1 mg Documented by: [id number] Vitamin D (Vitamin D3) 2,000 units PO DAILY [facility] Stop: 06/08/19 08:59 Last Admin: 05/11/19 07:39 Dose: Not Given Documented by: [id number] Admin: 05/10/19 07:53 Dose: 2,000 units Documented by: [id number] Admin: 05/09/19 08:26 Dose: 2,000 units Documented by: [id number] Discontinued Medications Albuterol (Ventolin 0.083% 2.5mg/3ml) 2.5 mg NEB Q4R [facility] Stop: 06/07/19 14:59 Last Admin: 05/09/19 11:21 Dose: 2.5 mg Documented by: [id number] Admin: 05/09/19 06:55 Dose: 2.5 mg Documented by: [id number] Admin: 05/09/19 03:13 Dose: 2.5 mg Documented by: [id number] Admin: 05/08/19 23:19 Dose: 2.5 mg Documented by: [id number] Admin: 05/08/19 20:07 Dose: Not Given Documented by: [id number] Admin: 05/08/19 15:22 Dose: 2.5 mg Documented by: [id number] Diltiazem HCl (Cardizem) 20 mg IV NOW STA Stop: 05/08/19 09:01 Last Admin: 05/08/19 09:25 Dose: 20 mg Documented by: [id number] Cosigned by: [id number] Diltiazem HCl (Cardizem) 10 mg IV NOW STA Stop: 05/08/19 11:07 Last Admin: 05/08/19 11:21 Dose: Not Given Documented by: [id number] Furosemide (Lasix) 40 mg IV NOW STA Stop: 05/08/19 09:01 Last Admin: 05/08/19 09:25 Dose: 40 mg Documented by: [id number] Methylprednisolone 40 mg/ (Syringe) 0.64 mls @ 1.5 mls/min IV Q6H [facility] Stop: 06/07/19 14:59 Last Admin: 05/08/19 15:31 Dose: 1.5 mls/min Documented by: [id number] Furosemide 40 mg/ Syringe 4 mls @ 4 mls/min IV ONE ONE Stop: 05/08/19 15:51 Last Admin: 05/08/19 16:29 Dose: 4 mls/min Documented by: [id number] Diltiazem HCl 125 mg/ Dextrose 125 mls @ 5 mls/hr IV .Q24H [facility]; Protocol Stop: 06/07/19 19:29 Last Admin: 05/10/19 19:44 Dose: Not Given Documented by: [id number] Admin: 05/10/19 19:43 Dose: Not Given Documented by: [id number] Admin: 05/10/19 19:43 Dose: Not Given Documented by: [id number] Furosemide 40 mg/ Syringe 4 mls @ 4 mls/min IV ONE ONE Stop: 05/09/19 07:16 Last Admin: 05/09/19 07:35 Dose: 4 mls/min Documented by: [id number] Sodium Chloride (Nss 1000ml) 500 mls @ 100 mls/hr IV .Q5H ONE Stop: 05/09/19 22:19 Last Infusion: 05/10/19 02:32 Dose: 0 mls/hr Documented by: [id number] Admin: 05/09/19 17:40 Dose: 100 mls/hr Documented by: [id number] Sodium Chloride (Nss 1000ml) 1,000 mls @ 50 mls/hr IV .Q20H [facility] Stop: 06/09/19 18:59 Last Infusion: 05/10/19 21:15 Dose: 0 mls/hr Documented by: [id number] Admin: 05/10/19 19:00 Dose: 50 mls/hr Documented by: [id number] Sodium Chloride (Hypertonic Saline 3%) 500 mls @ 20 mls/hr IV .Q24H [facility]; Protocol Stop: 06/09/19 20:59 Last Infusion: 05/11/19 09:29 Dose: 0 mls/hr Documented by: [id number] Cosigned by: [id number] Infusion: 05/11/19 00:38 Dose: 20 mls/hr Documented by: [id number] Cosigned by: [id number] Admin: 05/10/19 21:15 Dose: 25 mls/hr Documented by: [id number] Cosigned by: [id number] Potassium Chloride ([place] / Wtr) 10 meq in 100 mls @ 100 mls/hr IV Q1H [facility] Stop: 05/11/19 03:12 Last Infusion: 05/11/19 03:53 Dose: 0 mls/hr Documented by: [id number] Admin: 05/11/19 02:29 Dose: 100 mls/hr Documented by: [id number] Infusion: 05/11/19 02:29 Dose: 100 mls/hr Documented by: [id number] Admin: 05/11/19 01:32 Dose: 100 mls/hr Documented by: [id number] Infusion: 05/11/19 01:32 Dose: 100 mls/hr Documented by: [id number] Admin: 05/11/19 00:37 Dose: 100 mls/hr Documented by: [id number] Insulin Glargine (Lantus Solostar Pen) 30 units SQ DAILY [facility] Stop: 06/08/19 08:59 Last Admin: 05/10/19 07:57 Dose: 30 units Documented by: [id number] Cosigned by: [id number] Admin: 05/09/19 08:26 Dose: 30 units Documented by: [id number] Cosigned by: [id number] Insulin Glargine (Lantus Solostar Pen) 15 units SC DAILY [facility] Stop: 05/11/19 09:01 Last Admin: 05/11/19 08:04 Dose: 15 units Documented by: [id number] Cosigned by: [id number] Metolazone (Zaroxolyn) 5 mg PO DAILY [facility] Stop: 06/07/19 14:11 Last Admin: 05/08/19 15:33 Dose: 5 mg Documented by: [id number] Morphine Sulfate (Morphine Sulfate) Confirm Administered Dose 2 mg .ROUTE .STK- MED ONE Stop: 05/08/19 18:53 Last Admin: 05/08/19 18:56 Dose: 1 mg Documented by: [id number] Nitroglycerin (Nitro-Bid 2%) Confirm Administered Dose 18 inch .ROUTE .STK-MED ONE Stop: 05/08/19 09:57 Last Admin: 05/08/19 09:59 Dose: Not Given Documented by: [id number] Nitroglycerin (Nitro-Bid 2%) 1 inch EXT NOW STA Stop: 05/08/19 09:57 Last Admin: 05/08/19 10:00 Dose: 1 inch Documented by: [id number] Sodium Chloride ([place] Nasal) Confirm Administered Dose 225 sprays .ROUTE .STK- MED ONE Stop: 05/09/19 08:21 Last Admin: 05/09/19 08:55 Dose: 225 sprays Documented by: [id number] Tolvaptan (Samsca) 15 mg PO NOW STA Stop: 05/11/19 09:21 Last Admin: 05/11/19 10:18 Dose: 15 mg Documented by: [id number] Critical Care Time Critical Care Time: Yes Total Critical Care Time: 35 I have personally spent greater than 35 minutes of critical care time in the direct management of this patient. This includes bedside care, interpretation of diagnostic studies, and testing, discussion with consultants, patient, and family members, and other required patient management activities. This 35 minutes is in excess of all separately billable procedures. Medical Decision Making Differential Diagnosis Differential diagnoses includes but is not limited to pneumonia, bronchitis, COPD/Asthma exacerbation, pneumothorax, pulmonary embolism, congestive heart failure, acute coronary syndrome, amongst others. Medical Records Attestation: I reviewed the patient's medical records. Home Medications Current Medication List: was personally reviewed by me Laboratory Data Attestation: I reviewed the patient's lab results. Result diagrams: 05/11/19 06:00 05/11/19 06:00 Lab Results 05/08/19 05/08/19 05/08/19 Range/Units 09:15 09:15 09:15 WBC 11.51 H (4.8-10.8) K/uL RBC 4.21 (4.2-5.4) M/uL Hgb 12.5 (12.0-16.0) g/dL Hct 37.9 (37-47) % MCV 90.0 (80-100) fL MCH 29.7 (25-34) pg MCHC 33.0 (32-36) g/dL RDW Std Deviation 49.0 H (36.4-46.3) fL RDW Coeff of Kimber[place] 14.9 H (11.5-14.5) % Plt Count 291 (130-400) K/uL MPV 10.4 (7.4-10.4) fL Immature Gran % (Auto) 0.3 % Neut % (Auto) 75.4 % Lymph % (Auto) 14.9 % Bond % (Auto) 9.0 % Eos % (Auto) 0.2 % Baso % (Auto) 0.2 % Immature Gran # (Auto) 0.04 H (0.00-0.02) K/uL Neut # (Auto) 8.68 H (1.4-6.5) K/uL Lymph # (Auto) 1.71 (1.2-3.4) K/uL Bond # (Auto) 1.04 H (0.11-0.59) K/uL Eos # (Auto) 0.02 (0-0.5) K/uL Baso # (Auto) 0.02 (0-0.2) K/uL PT 11.5 (9.0-12.0) Seconds INR 1.1 (0.9-1.1) APTT 29.8 (21.0-31.0) Seconds PTT Ratio 1.1 Sodium 130 L (136-145) mmol/L Potassium 4.2 (3.5-5.1) mmol/L Chloride 92 L (98-107) mmol/L Carbon Dioxide 28 (21-32) mmol/L Anion Gap 10.0 (3-11) BUN 25 H (7-18) mg/dl Creatinine 1.52 H (0.6-1.2) mg/dl Est Cr Clr Drug Dosing 23.8 ml/min Est GFR ( Amer) 37.1 Est GFR (Non-Af Amer) 32.0 BUN/Creatinine Ratio 16.6 (10-20) Glucose 118 H (70-99) mg/dl Calcium 9.9 (8.5-10.1) mg/dl Magnesium 2.1 (1.8-2.4) mg/dl Total Bilirubin 0.9 (0.2-1) mg/dl AST 31 (15-37) U/L ALT 17 (12-78) U/L Alkaline Phosphatase 93 (45-117) U/L Troponin I 0.288 H* (0-0.045) ng/ml Total Protein 8.0 (6.4-8.2) gm/dl Albumin 3.7 (3.4-5.0) gm/dl Globulin 4.3 H (2.5-4.0) gm/dl Albumin/Globulin Ratio 0.9 (0.9-2) Urine Color Urine Appearance (Clear) Urine pH (4.5-7.5) Ur Specific [place] (1.000-1.030) Urine Protein (Negative) Urine Glucose (UA) (Negative) Urine Ketones (Negative) Urine Blood (Negative) Urine Nitrite (Negative) Urine Bilirubin (Negative) Urine Urobilinogen (Negative) Ur Leukocyte Esterase (Negative) Urine WBC (Auto) (0-5) /hpf Urine RBC (Auto) (0-4) /hpf U Hyaline Cast (Auto) (0-5) /lpf U Epithel Cells (Auto) (0-5) /lpf Urine Bacteria (Auto) (Negative) 05/08/19 Range/Units 11:10 WBC (4.8-10.8) K/uL RBC (4.2-5.4) M/uL Hgb (12.0-16.0) g/dL Hct (37-47) % MCV (80-100) fL MCH (25-34) pg MCHC (32-36) g/dL RDW Std Deviation (36.4-46.3) fL RDW Coeff of Kimberley (11.5-14.5) % Plt Count (130-400) K/uL MPV (7.4-10.4) fL Immature Gran % (Auto) % Neut % (Auto) % Lymph % (Auto) % Bond % (Auto) % Eos % (Auto) % Baso % (Auto) % Immature Gran # (Auto) (0.00-0.02) K/uL Neut # (Auto) (1.4-6.5) K/uL Lymph # (Auto) (1.2-3.4) K/uL Bond # (Auto) (0.11-0.59) K/uL Eos # (Auto) (0-0.5) K/uL Baso # (Auto) (0-0.2) K/uL PT (9.0-12.0) Seconds INR (0.9-1.1) APTT (21.0-31.0) Seconds PTT Ratio Sodium (136-145) mmol/L Potassium (3.5-5.1) mmol/L Chloride (98-107) mmol/L Carbon Dioxide (21-32) mmol/L Anion Gap (3-11) BUN (7-18) mg/dl Creatinine (0.6-1.2) mg/dl Est Cr Clr Drug Dosing ml/min Est GFR ( Amer) Est GFR (Non-Af Amer) BUN/Creatinine Ratio (10-20) Glucose (70-99) mg/dl Calcium (8.5-10.1) mg/dl Magnesium (1.8-2.4) mg/dl Total Bilirubin (0.2-1) mg/dl AST (15-37) U/L ALT (12-78) U/L Alkaline Phosphatase (45-117) U/L Troponin I (0-0.045) ng/ml Total Protein (6.4-8.2) gm/dl Albumin (3.4-5.0) gm/dl Globulin (2.5-4.0) gm/dl Albumin/Globulin Ratio (0.9-2) Urine Color Yellow Urine Appearance Cloudy A (Clear) Urine pH 6.0 (4.5-7.5) Ur Specific [place] 1.017 (1.000-1.030) Urine Protein 3+ H (Negative) Urine Glucose (UA) Negative (Negative) Urine Ketones Negative (Negative) Urine Blood Trace H (Negative) Urine Nitrite Negative (Negative) Urine Bilirubin Negative (Negative) Urine Urobilinogen Negative (Negative) Ur Leukocyte Esterase 2+ H (Negative) Urine WBC (Auto) 10-30 H (0-5) /hpf Urine RBC (Auto) 0-4 (0-4) /hpf U Hyaline Cast (Auto) 1-5 (0-5) /lpf U Epithel Cells (Auto) >30 H (0-5) /lpf Urine Bacteria (Auto) 1+ H (Negative) Imaging Data Radiologist's Impression: Radiology results as stated below per my review and the radiologist's interpretation: XR chest 1V portable HISTORY: Dyspnea COMPARISON: Chest 10/26/2018. FINDINGS: Prior total left pneumonectomy. Left-sided posterior pacemaker is again noted. Left mediastinal shift, unchanged. Progressive interstitial thickening and a small right pleural effusion within the right lung. This s uggests pulmonary edema. No pneumothorax. Old, healed left-sided rib fractures. IMPRESSION: 1. Interval progression of the right lung interstitial thickening and a small right pleural effusion. This likely represents pulmonary edema. 2. Prior left pneumonectomy. Electronically signed by: Julio Bruce M.D. 05/08/2019 9:32 AM ECG Data Attestation: I personally reviewed and interpreted this ECG as follows: Indication: + SOB/dyspnea Rate (beats per minute): 141 Rhythm: + atrial fibrillation (with RVR) ECG Intervals/blocks: + Left bundle branch block and + Prolonged QT (545) ECG ST segments: + Nonspecific ST abnormalities and + repolarization abnormalities (Laterally) Blood Pressure Blood Pressure Findings: Elevated blood pressure Blood Pressure Disposition: further management by hospitalist MDM Narrative This is pt was evaluated and appeared to be in no distress. IV access was obtained and lab work was drawn. Pt was placed on n/c O2, hr associate in place. Pt is found to be in a fib with RVR. CXR confirms CHF and s/p pneumonectomy state. Pt was medicated with IV cardizem, her home medication, and IV lasix. Pt has a desat episode and became agitated, attempting to pull IV. Pt was placed on oxy mask with improvement. She is DNR/DNI but was verbally calmed and allowed for vapotherm (high flow N/c) as she refused bipap. Pt was better rate controlled and resp status improved. Trop is slightly elevated, likely secondary to rate and CHF. Case was d/w the hospitalist service for further management. Impression & Plan CHF (congestive heart failure), Elevated troponin, Rapid atrial fibrillation Discharge Plan Visit Data *Final* Discharge Date/Time: 05/08/19 13:42 Chief Complaint: Shortness of Breath/Dyspnea ED Provider: Lily Perez Discharge Problem: CHF (congestive heart failure), Elevated troponin, Rapid atrial fibrillation Patient Disposition: Admitted As Inpatient Discharge Instructions Interventions: ED Discharge Assessment Last Done: 05/08/19 13:42 Discharge Problem: CHF (congestive heart failure) Qualifiers: Heart failure type: unspecified Heart failure chronicity: acute on chronic Qualified Code(s): I50.9 - Heart failure, unspecified The scribe's documentation has been prepared under my direction and personally reviewed by me in its entirety. I confirm that the note above accurately reflects all work, treatment, procedures, and medical decision making performed by me.
[2019-05-08] MEDS: ALBUTEROL 0.083% NEBU SOLN 3 ML VIAL NEB SCH ×3 (15:22→23:19)
[2019-05-08] MEDS: CLOPIDOGREL BISULFATE 75 MG TAB PO SCH (15:33)
[2019-05-08] MEDS: ASPIRIN 81 MG ECTAB PO SCH (15:33)
[2019-05-08] MEDS ORDERED: FUROSEMIDE 40 MG in SYRINGE 0 ML IV ONE (15:50)
--- NOTE | 2019-05-08 16:32 | CT Scan Report ---
CT chest wo con CLINICAL HISTORY: hypoxia: eval pulmonary edema vs infiltrate ABNORMAL CHEST X-RAY COMPARISON STUDY: 01/01/2013 CT DOSE: 468.29 mGycm TECHNIQUE: CT of the thorax was performed from the thoracic inlet to the lung bases. Images are revi ewed in the axial, sagittal, and coronal planes. IV contrast was not administered for this examinatio n. A dose lowering technique was utilized adhering to the principles of ALARA. FINDINGS: Thyroid: There is a subcentimeter left lobe thyroid nodule Thoracic aorta: The thoracic aorta is normal in course and caliber, noting standard 3 vessel arch dari theodora. Heart: The heart is normal in size and configuration, without pericardial effusion. Lungs and pleural spaces: Post pneumonectomy changes are present on the left. There is a moderate rig ht pleural effusion. There is interlobular septal thickening on the right. There are right lower lobe airspace opacities, likely representing compressive atelectasis. Mediastinum: There are minimally enlarged mediastinal lymph nodes Osiris: There is no evidence of pathologic hilar adenopathy given the limitations of a noncontrast stud y Axilla: There is no evidence of pathologic axillary lymphadenopathy Upper abdomen: Partially visualized upper abdominal viscera is within normal limits. Skeletal structures: There are no lytic or blastic osseous lesions. IMPRESSION: 1. Post pneumonectomy changes on the left 2. Moderate right pleural effusion with interlobular septal thickening on the right. The findings are suggestive of cardiogenic/noncardiogenic edema. 3. Right lower lobe airspace opacities, statistically representing compressive atelectasis 4. Minimally enlarged mediastinal lymph nodes Electronically signed by: Doc Nuñez M.D. 05/08/2019 4:31 PM
[2019-05-08] MEDS ORDERED: ONDANSETRON INJ 2 MG/ML 2 ML VIAL IV PRN (16:47)
[2019-05-08] MEDS ORDERED: MoRPHine SULFATE 2 MG/ML CARP IV PRN (18:41)
[2019-05-08] MEDS ORDERED: MoRPHine SULFATE 2 MG/ML CARP ONE (18:52)
[2019-05-08] MEDS: ARFORMOTEROL TART 15MCG/2ML VIAL INH SCH (20:07)
[2019-05-08] MEDS: APIXABAN 2.5 MG TAB PO SCH (20:25)
[2019-05-09] MEDS: ALBUTEROL 0.083% NEBU SOLN 3 ML VIAL NEB SCH ×3 (03:13→11:21)
[2019-05-09 06:07] LABS: Hematocrit (blood only) 36.8 % (37-47); Hemoglobin 12.1 g/dL (12.0-16.0); Immature Granulocytes # (auto) 0.02 K/uL (0.00-0.02); Immature Granulocytes % (auto) 0.3 %; Lymphocytes # (auto) 0.59 K/uL (1.2-3.4); Mean Corpuscular Hemoglobin 29.1 pg (25-34); Mean Corpuscular Hgb Conc 32.9 g/dL (32-36); Mean Corpuscular Volume 88.5 fL (80-100); Mean Platelet Volume 10.6 fL (7.4-10.4); Monocytes # (auto) 0.18 K/uL (0.11-0.59); Monocytes % (auto) 3.1 %; Neutrophils % (auto) 86.6 %; Platelet Count 272 K/uL (130-400); RDW Coefficient of Variation 14.8 % (11.5-14.5); RDW Standard Deviation 47.6 fL (36.4-46.3); Red Blood Count 4.16 M/uL (4.2-5.4); White Blood Count 5.89 K/uL (4.8-10.8)
[2019-05-09 06:38] LABS: BUN Creatinine Ratio 20.4 (10-20); Blood Urea Nitrogen 35 mg/dl (7-18); Calcium 9.1 mg/dl (8.5-10.1); Carbon Dioxide 29 mmol/L (21-32); Chloride 86 mmol/L (98-107); Creatinine Clr Calc Pharmacy 21.3 ml/min; Est GFR (African American) 32.2; Est GFR (Non-African American) 27.8; Glucose 218 mg/dl (70-99); Potassium 3.6 mmol/L (3.5-5.1); Sodium 126 mmol/L (136-145)
[2019-05-09 06:42] LABS: NT Pro B Type Natriuretic Pept > 35000 pg/ml (0-1800)
[2019-05-09] MEDS: ARFORMOTEROL TART 15MCG/2ML VIAL INH SCH ×2 (06:55→19:24)
[2019-05-09] MEDS ORDERED: FUROSEMIDE 40 MG in SYRINGE 0 ML IV ONE (07:15)
[2019-05-09] MEDS ORDERED: SODIUM CHLORIDE 0.65% NA SOLN 45 ML (OCEAN) ONE (08:20)
[2019-05-09] MEDS: ATORVASTATIN 10 MG TAB PO SCH (08:25)
[2019-05-09] MEDS: dilTIAZem HCL 240 MG CAPCR PO SCH (08:25)
[2019-05-09] MEDS: ASCORBIC ACID 500 MG TAB PO SCH (08:25)
[2019-05-09] MEDS: METOPROLOL TARTRATE 25 MG TAB PO SCH ×2 (08:25→21:09)
[2019-05-09] MEDS: INSULIN GLARGINE SOLOSTAR 100 UNITS/ML 3 ML PEN SQ SCH (08:26)
[2019-05-09] MEDS: FAMOTIDINE 20 MG TAB PO SCH (08:26)
[2019-05-09] MEDS: ASPIRIN 81 MG ECTAB PO SCH (08:26)
[2019-05-09] MEDS: CLOPIDOGREL BISULFATE 75 MG TAB PO SCH (08:26)
[2019-05-09] MEDS: APIXABAN 2.5 MG TAB PO SCH ×2 (08:26→21:08)
[2019-05-09] MEDS: CHOLECALCIFEROL 1,000 UNITS TAB PO SCH (08:26)
[2019-05-09] MEDS: INSULIN ASPART 100 UNITS/ML 3 ML PEN SC SCH ×4 (08:27→21:09)
[2019-05-09] MEDS: AMLODIPINE BESYLATE 5 MG TAB PO SCH (08:55)
[2019-05-09] MEDS ORDERED: FUROSEMIDE 40 MG TAB PO SCH (09:00)
[2019-05-09] MEDS ORDERED: ISOSORBIDE MONO EXTENDED REL 60 MG TABCR PO SCH (09:00)
--- NOTE | 2019-05-09 12:24 | Palliative Care Consultation ---
Date of Consultation May 09, 2019 Assessment & Plan (1) Goals of care, counseling/discussion: -78 year old female patient with PMH hypertension, hyperlipidemia, CAD, heart block, diabetes type 2, chronic renal insufficiency, right renal artery stenosis, chronic hypoxic respiratory failure, interstitial lung disease, left lung carcinoid tumor s/p pneumonectomy, GERD, pneumonia, and others, presented to the hospital with worsening SOB. Pulmonary edema seen on CXR & BNP > 35,000. She was given 40mg IV Lasix in the ED. She was placed on bipap, but did not tolerate well. She then was placed on high-flow nasal cannula and was given a milligram of morphine for comfort. Patient improved and is now on regular nasal cannula. Patient and family stated that they did not want aggressive measures, no intubation, no ICU. Palliative care is consulted to discuss goals of care. -Met with patient in room 201. She is awake, alert and oriented x4. Feeling much better-- now on regular nasal cannula at 4LPM. Does have some SOB at rest that worsens with talking. -Patient states that she knows her "time is limited." Her goal is to be at home and be comfortable. She does not want to continue coming to the hospital with each exacerbation. Patient states that coming to the hospital only makes her better for a short period of time, but does not "fix" anything. -Patient has been struggling at home to keep with up household duties. Her is 83 and has some dementia that seems to be worsening lately. Her is used to her doing all senior care manager including preparing his meals, but patient cannot keep up. Her breathing is getting worse. -Elvin's daughter, Salma, then arrived and we continued to the conversation. Salma is in agreement with patient's wishes to be comfortable allow nature to take its course. -We discussed hospice. Patient is agreeable to home hospice care. She will also tap into her long-term care insurance and have private duty caregivers. Salma is in agreement. -Patient states that she would want Salma to be her decision maker in the case she was unable to do so for herself. Patient's current living will states that her Bill is POA, so I will have a patient enrollment representative come by today to complete new POA paperwork. -We will having formal family meeting tomorrow with patient, her daughter Salma, Abel, and possibly another daughter to discuss goals of care, home hospice, and POLST form, at 3:30pm. Further plans to follow. (2) Acute on chronic diastolic (congestive) heart failure: (3) Elevated troponin: History of Present Illness Reason for Consultation: Goals of care Requesting Physician: Dr. Bal Attending Physician: Canelo Bal MD History of Present Illness This 78 year old female patient with PMH hypertension, hyperlipidemia, CAD, heart block, diabetes type 2, chronic renal insufficiency, right renal artery stenosis, chronic hypoxic respiratory failure, interstitial lung disease, left lung carcinoid tumor s/p pneumonectomy, GERD, pneumonia, and others, presented to the hospital with worsening SOB. Pulmonary edema seen on CXR & BNP > 35,000. She was given 40mg IV Lasix in the ED. She was placed on bipap, but did not tolerate well. She then was placed on high-flow nasal cannula and was given a milligram of morphine for comfort. Patient improved and is now on regular nasal cannula. Patient and family stated that they did not want aggressive measures, no intubation, no ICU. Palliative care is consulted to discuss goals of care. Thank you kindly for this consult. Palliative care team will follow as needed. Allergies Allergy/AdvReac Type Severity Reaction Status Date / Time No Known Drug Allergies Allergy Verified 05/08/19 09:21 Home Medications Home Medications Medication Instructions Recorded Confirmed Type amlodipine 5 mg PO DAILY 10/26/18 05/08/19 History ascorbic acid (vitamin C) [Vitamin 500 mg PO DAILY 10/26/18 05/08/19 History C] aspirin [Aspir-81] 81 mg PO DAILY 10/26/18 05/08/19 History diltiazem HCl 240 mg PO DAILY 10/26/18 05/08/19 History metoprolol tartrate 25 mg PO BID 10/26/18 05/08/19 History nitroglycerin 0.4 mg sublingual 0.4 mg SUBLINGUAL .COMPLEX PRN #25 01/05/19 05/08/19 Rx tablet tab blood sugar diagnostic #10 ea 01/12/19 04/04/19 History lancets #50 ea 01/12/19 04/04/19 History metolazone 5 mg tablet 5 mg PO DAILY #30 tab 01/12/19 05/08/19 History triamcinolone acetonide 0.1 % 1 appln TOP BID PRN #80 gm MDD bid 01/30/19 05/08/19 Rx topical cream famotidine 20 mg tablet 20 mg PO DAILY #90 tab 02/09/19 05/08/19 Rx furosemide 40 mg tablet 40 mg PO DAILY #90 tab 02/09/19 05/08/19 Rx insulin glargine 100 unit/mL (3 30 units SUBCUT DAILY #15 ml 03/02/19 05/08/19 Rx mL) subcutaneous pen cholecalciferol (vitamin D3) 50 2,000 units PO DAILY 04/04/19 05/08/19 History mcg (2,000 unit) capsule pen needle, diabetic 31 gauge x #90 ea 04/10/19 Rx 10/12" clopidogrel 75 mg tablet 75 mg PO DAILY #90 tab 04/16/19 05/08/19 Rx albuterol sulfate 2.5 mg/3 mL 2.5 mg INHALATION .COMPLEX 90 Days 05/07/19 05/08/19 Rx (0.083 %) solution for nebulization #1080 ml arformoterol 15 mcg/2 mL solution 15 mcg INHALATION .COMPLEX #180 ml 05/07/19 05/08/19 Rx for nebulization atorvastatin 10 mg tablet 10 mg PO DAILY #90 tab 05/07/19 05/08/19 Rx ipratropium bromide 0.02 % 0.5 mg INHALATION Q4H PRN #450 ml 05/07/19 05/08/19 Rx solution for inhalation isosorbide mononitrate 60 mg See Rx Instructions .ROUTE 05/07/19 05/08/19 Rx tablet,extended release 24 hr .COMPLEX #90 tablet apixaban [Eliquis] 2.5 mg PO BID 05/08/19 05/08/19 History Patient History Medical History (Updated 05/09/19 @ 13:31 by Canelo Bal MD) Goals of care, counseling/discussion H/O heart block Influenza A (Resolved 07/06/14) Pneumonia (Resolved) Surgical History History of cholecystectomy History of hysterectomy History of pneumonectomy (Resolved) S/P partial lobectomy of lung S/P pneumonectomy (Resolved) Family History Other Diabetes Hypertension Social History Preferred Language: Bermudian Communication Ability: Effective Herbicide Service Sales Representative Required: No Beliefs That Will Affect Care: None marital status: Current Living Situation: Spouse current occupational status: retired Other Information That Helps Us Care for You: No Feels Safe at Home: Yes Safety Concerns: Feels Safe At This Time Smoking Status: Never smoker Do You Dip or Chew Tobacco: No ; Second Hand Exposure: No ; Tobacco Cessation Education Requested by Patient: No Hx Alcohol Use: No Hx Substance Use: No Review of Systems Review of Systems: Const: + mild weakness due to respiratory issues ENMT: No dysphagia Resp: + SOB with exertion and at rest sometimes, no cough Cardio: No chest pain, no edema GI: No abdominal pain, no N/V MS: No musculoskeletal pain Neuro: No confusion Psych: No anxiety, no depression Physical Exam Constitutional: no acute distress elderly ENMT: external ear and nose normal, oropharynx normal Respiratory: + labored breathing and + tachypneic (with talking) Auscultation: + diminished lung sounds Cardiovascular: Rate/Rhythm: regular rate and + irregularly irregular ectopy noted on monitor Gastrointestinal (Abdomen): Inspection/Auscultation: abdomen normal to inspection and normal bowel sounds Percussion/Palpation: abdomen soft; abdomen nontender Neurologic: moves all extremities and awake; not confused Psychiatric: A+Ox3, euthymic affect Insight: good insight Judgement: good judgement Results & Data Vital Signs (Past 12 Hours) Vital Signs Temp Pulse Pulse Resp BP Pulse Ox 05/09/19 11:21 63 18 100 05/09/19 10:56 36.5 C 61 26 H 151/73 H 98 05/09/19 08:59 68 18 96 05/09/19 07:16 36.7 C 63 18 167/73 H 92 05/09/19 07:03 70 20 100 05/09/19 03:35 36.4 C L 82 22 150/88 H 100 05/09/19 03:17 83 24 97 Time Spent Midlevel 70 minutes with >50% of the time spent at bedside with patient and family discussing condition and GOC.
--- NOTE | 2019-05-09 13:17 | Hospitalist Progress Note ---
Date of Service May 09, 2019 Assessment & Plan (1) Acute on chronic diastolic (congestive) heart failure: Pulm edema seen on pCXR & BNP > 35,000. She admits to not consistently taking her medications as she is busy caring for her . Likely worsened by her afib with RVR. - Hold home meds - Diurese with IV Lasix - Supplemental O2 as needed (uses 2L at home; presently on high-flow, but weaning down) - I&Os - Low-dose morphine PRN for air hunger/shortness of breath (2) Atrial fibrillation with rapid ventricular response: PMH paroxysmal afib on Eliquis. Patient is likely not taking her home medicines regularly. - Restarted home beta-zulma and calcium channel zulma -> Rates now in the 60-70 range with some pacing. - Continue home apixaban (3) Hyponatremia: Admit Na 130. - Down to 126 on 05/09; possibly due to Lasix and poor PO intake (low solute). - Monitor (4) Hypertension: BP stable at 150/70 today. - Continue home meds as above (5) Diabetes type 2, controlled: A1c was 6.3% in 02/2019. - Continue home Lantus - Sliding scale insulin - Blood sugars were good yesterday, higher today. Possible family is brining in food for her. (6) CKD (chronic kidney disease) stage 4, GFR 15-29 ml/min: Baseline Cr ~1.7 with some variation. - On 05/09, at baseline. - Monitor (7) Coronary artery disease, occlusive: Troponins stable at 0.2-0.3. No chest pain. - Continue home ASA, Plavix, statin, beta-zulma, Imdur (8) H/O heart block: With pacemaker. Occasionally paced on telemetry. - No inpatient needs (9) Esophageal reflux: - Continue PPI (10) DVT prophylaxis: On apixaban for afib Subjective Reports improved shortness of breath. Has a dry nose from the nasal cannula. Reports no fevers/chills, chest pain, shortness of breath, abdominal pain, nausea, or vomiting. Physical Exam Constitutional: WD/WN, vitals as above Eyes: EOM intact bilaterally; no conjunctival abnormality ENMT: external ear and nose normal, oropharynx normal Neck: trachea midline, no thyromegaly normal visual inspection Respiratory: + respiratory distress, + labored breathing and + uses accessory muscles Auscultation: + diminished lung sounds and + wheezes Cardiovascular: RRR, no murmur, no edema Gastrointestinal (Abdomen): Inspection/Auscultation: abdomen normal to inspection; abdomen not distended Musculoskeletal: no cyanosis or clubbing, extremities motor strength 5/5 Skin: no rashes, warm and dry Neurologic: moves all extremities and awake Psychiatric: Orientation: alert, oriented to person and cooperative Results & Data Vital Signs (Past 12 Hours) Vital Signs Temp Pulse Pulse Resp BP Pulse Ox 05/09/19 11:21 63 18 100 05/09/19 10:56 36.5 C 61 26 H 151/73 H 98 05/09/19 08:59 68 18 96 05/09/19 07:16 36.7 C 63 18 167/73 H 92 05/09/19 07:03 70 20 100 05/09/19 03:35 36.4 C L 82 22 150/88 H 100 05/09/19 03:17 83 24 97 PG Care Time/CCT Total # of Minutes Spent Total Time Spent with Patient: Total time spent is greater than 50% in coordination of care (as documented) at patient's floor/unit and/or counseling patient:
[2019-05-09] MEDS ORDERED: ALBUTEROL 0.083% NEBU SOLN 3 ML VIAL NEB PRN (13:50)
[2019-05-09] MEDS: LORazepam 0.5 MG/1 ML VIAL IV PRN ×2 (14:27→18:22)
[2019-05-09 16:50] LABS: BUN Creatinine Ratio 19.4 (10-20); Calcium 9.3 mg/dl (8.5-10.1); Est GFR (African American) 24.4; Est GFR (Non-African American) 21.1; Potassium 3.7 mmol/L (3.5-5.1)
[2019-05-09] MEDS ORDERED: SODIUM CHLORIDE 0.9% 1000ML 500 ML IV ONE (17:20)
[2019-05-10 06:21] LABS: Hemoglobin 11.7 g/dL (12.0-16.0); Mean Corpuscular Hemoglobin 29.3 pg (25-34); Mean Corpuscular Hgb Conc 33.4 g/dL (32-36); Mean Corpuscular Volume 87.7 fL (80-100); Mean Platelet Volume 10.3 fL (7.4-10.4); Platelet Count 353 K/uL (130-400); RDW Coefficient of Variation 14.7 % (11.5-14.5); RDW Standard Deviation 47.2 fL (36.4-46.3); Red Blood Count 3.99 M/uL (4.2-5.4); White Blood Count 17.41 K/uL (4.8-10.8)
[2019-05-10 06:38] LABS: BUN Creatinine Ratio 22.3 (10-20); Calcium 9.1 mg/dl (8.5-10.1); Creatinine Clr Calc Pharmacy 18.9 ml/min; Est GFR (African American) 27.8; Magnesium 1.9 mg/dl (1.8-2.4); Potassium 3.5 mmol/L (3.5-5.1)
[2019-05-10 06:39] LABS: Phosphorus 4.4 mg/dl (2.5-4.9)
[2019-05-10] MEDS: ARFORMOTEROL TART 15MCG/2ML VIAL INH SCH ×2 (07:08→19:48)
--- NOTE | 2019-05-10 07:33 | XRay Report ---
XR chest 1V portable CLINICAL HISTORY: Shortness of breath and leukocytosis dyspnea COMPARISON STUDY: 05/08/2019 FINDINGS: Opacification left hemithorax. Bipolar cardiac pacemaker in good position. Prominent pulmonary vasculature of the right hemithorax. Trace pleural fluid right lung base. IMPRESSION: 1. Operative changes consistent with prior left pneumonectomy. 2. Prominent pulmonary vasculature of the right hemithorax raising the possibility of a component of mild congestive failure. The above report was generated using voice recognition software. It may contain grammatical, syntax or spelling errors. Electronically signed by: Karthik Sinclair M.D. 05/10/2019 7:31 AM
[2019-05-10] MEDS: ASPIRIN 81 MG ECTAB PO SCH (07:52)
[2019-05-10] MEDS: ASCORBIC ACID 500 MG TAB PO SCH (07:52)
[2019-05-10] MEDS: AMLODIPINE BESYLATE 5 MG TAB PO SCH (07:53)
[2019-05-10] MEDS: CHOLECALCIFEROL 1,000 UNITS TAB PO SCH (07:53)
[2019-05-10] MEDS: ATORVASTATIN 10 MG TAB PO SCH (07:53)
[2019-05-10] MEDS: METOPROLOL TARTRATE 25 MG TAB PO SCH ×2 (07:54→20:47)
[2019-05-10] MEDS: CLOPIDOGREL BISULFATE 75 MG TAB PO SCH (07:54)
[2019-05-10] MEDS: dilTIAZem HCL 240 MG CAPCR PO SCH (07:55)
[2019-05-10] MEDS: APIXABAN 2.5 MG TAB PO SCH ×2 (07:55→20:46)
[2019-05-10] MEDS: FAMOTIDINE 20 MG TAB PO SCH (07:55)
[2019-05-10] MEDS: INSULIN GLARGINE SOLOSTAR 100 UNITS/ML 3 ML PEN SQ SCH (07:57)
[2019-05-10] MEDS: INSULIN ASPART 100 UNITS/ML 3 ML PEN SC SCH ×4 (07:58→21:15)
[2019-05-10 08:26] LABS: Appearance Urine Clear (Clear); Bacteria Urine Automated Negative (Negative); Bilirubin Urine Negative (Negative); Blood Urine Trace (Negative); Color Urine Yellow; Epithelial Cell Urine Auto >30 /lpf (0-5); Glucose Urine UA Negative (Negative); Ketones Urine Negative (Negative); Leukocyte Esterase Urine 1+ (Negative); Nitrite Urine Negative (Negative); Protein Urine 2+ (Negative); RBC Urine Automated 0-4 /hpf (0-4); Specific Gravity Urine 1.017 (1.000-1.030); Urobilinogen Urine Negative (Negative); WBC Urine Automated >30 /hpf (0-5)
[2019-05-10] MEDS ORDERED: DiphenhydrAMINE 2%/ZINC 0.1% CREAM 28GM TUBE EXT PRN (08:57)
--- NOTE | 2019-05-10 14:06 | Hospitalist Progress Note ---
Date of Service May 10, 2019 Assessment & Plan (1) Acute on chronic diastolic (congestive) heart failure: Pulm edema seen on pCXR & BNP > 35,000. She admits to not consistently taking her medications as she is busy caring for her . Likely worsened by her afib with RVR. - Hold home meds - Supplemental O2 as needed (uses 2L at home; presently on high-flow, but weaning down) - I&Os - Holding diurese with IV Lasix due to hyponatremia. - Low-dose morphine PRN for air hunger/shortness of breath worked well, but she is resistant. (2) Atrial fibrillation with rapid ventricular response: PMH paroxysmal afib on Eliquis. Patient is likely not taking her home medicines regularly. - Restarted home beta-zulma and calcium channel zulma -> Rates now in the 60-70 range with some pacing. - Continue home apixaban (3) Hyponatremia: Admit Na 130. - Down to 123 on 05/09; possibly due to Lasix and poor PO intake (low solute). - Given 500 cc NS with stability over the last day. Will restrict fluid, repeat urine lytes, and closely monitor. (4) Hypertension: BP stable at 160/75 today. - Continue home meds as above (5) Diabetes type 2, controlled: A1c was 6.3% in 02/2019. - Continue home Lantus - Sliding scale insulin - Blood sugars were acceptable today at 150-200. (6) CKD (chronic kidney disease) stage 4, GFR 15-29 ml/min: Baseline Cr ~1.7 with some variation. - On 05/09, it bumped to 2.1 after diuresis. - Down slightly on 05/10 after 500 mL IVF bolus. - Monitor (7) Coronary artery disease, occlusive: Troponins stable at 0.2-0.3. No chest pain. - Continue home ASA, Plavix, statin, beta-zulma, Imdur (8) H/O heart block: With pacemaker. Occasionally paced on telemetry. - No inpatient needs (9) Esophageal reflux: - Continue PPI (10) DVT prophylaxis: On apixaban for afib Subjective Feel some better today. Less shortness of breath and needing less O2, but she is more lethargic and tired. She reports diffuse itching with lots of scabs that she picks. She reports that she Reports no fevers/chills, chest pain, shortness of breath, abdominal pain, nausea, or vomiting. Physical Exam Constitutional: WD/WN, vitals as above Eyes: EOM intact bilaterally; no conjunctival abnormality ENMT: external ear and nose normal, oropharynx normal Neck: trachea midline, no thyromegaly normal visual inspection Respiratory: + labored breathing and + uses accessory muscles; no respiratory distress Auscultation: + diminished lung sounds and + wheezes Cardiovascular: RRR, no murmur, no edema Gastrointestinal (Abdomen): Inspection/Auscultation: abdomen normal to inspection; abdomen not distended Musculoskeletal: no cyanosis or clubbing, extremities motor strength 5/5 Skin: no rashes, warm and dry Neurologic: moves all extremities and awake Psychiatric: Orientation: alert, oriented to person and cooperative Results & Data Vital Signs (Past 12 Hours) Vital Signs Temp Pulse Pulse Resp BP Pulse Ox 05/10/19 10:49 36.5 C 61 20 164/74 H 98 05/10/19 07:13 36.7 C 65 20 157/74 H 99 05/10/19 07:09 64 16 98 05/10/19 03:30 36.6 C 64 19 148/53 H 100 PG Care Time/CCT Total # of Minutes Spent Total Time Spent with Patient: Total time spent is greater than 50% in coordination of care (as documented) at patient's floor/unit and/or counseling patient:
[2019-05-10] MEDS: cefTRIAXone SODIUM 1,000 MG in DEXTROSE 5% 50 ML IV SCH (14:15)
--- NOTE | 2019-05-10 14:17 | Palliative Care Progress Note ---
Date of Service May 10, 2019 Assessment & Plan (1) Goals of care, counseling/discussion: -WBCs increased today. Abx started-- managed by hospitalist. -No diuretic given today. Creatinine 2.15 yesterday, 1.93 today. -Family meeting held with patient, her Abel, chary Marsh (POErick) and Latonia. Dr. Bal present for first half of family meeting to give medical update and answer patient's family's questions. All questions answered to their satisfaction. -Family was somewhat fixated on the issue of these "bugs" that are embedding in patient's skin at home. However, no one has actually physically seen this bugs, and patient's who lives with her and sleeps in the same bed does not have any bites. While in the room, we noted that patient picked a scab off her arm and said, "here's one." So it is entirely possible that the patient is itchy and scratching-- causing scabs, then picking the scabs off and thinking they are bugs. -Quick synopsis of patient's medical issues: She came in with heart failure and was diuresed to remove fluid from her one lung. Her oxygen saturations have improved on nasal cannula. She is tired and somewhat drowsy today-- hoping this improves with some rest. Her WBCs increased to >30k, she is now on abx, but no clear source of infection at this point. She has one lung, and that lung is also not healthy. Her overall functional status is declining. Patient is adamant and has stated many times to multiple nurses and providers that she doesn't want to continue coming to/from the hospital and wants to be comfortable at home. -Long talk about home hospice with supplemental caregivers-- this is currently our plan for after hospitalization. -Patient completed the POA/living will paperwork which I copied and placed on the chart. Daughter Salma is MAX, which patient told me several times yesterday and today. Family is in agreement. -Will ask case management tomorrow to stop by and provide hospice agency and private duty caregiver lists. -Also had long discussion about medications that are used for comfort such as morphine and lorazepam. Including secondary side effects, when they are used, and what the goal is with these medications. It is important to the family to use the smallest doses possible so patient can be as awake as possible. -Will continue to follow. (2) Acute on chronic diastolic (congestive) heart failure: (3) Elevated troponin: Subjective Patient is more drowsy today-- says she is extremely exhausted. Denies pain, says she is "miserable" though. Review of Systems Review of Systems: +weakness, +SOB Denies Pain or N/V Physical Exam Constitutional: no acute distress ENMT: external ear and nose normal, oropharynx normal Respiratory: Auscultation: + diminished lung sounds Cardiovascular: Rate/Rhythm: regular rate and + irregularly irregular Gastrointestinal (Abdomen): Inspection/Auscultation: abdomen normal to inspection and normal bowel sounds Percussion/Palpation: abdomen soft; abdomen nontender Neurologic: moves all extremities and awake Psychiatric: Orientation: + not alert (awake but lethargic) Results & Data Vital Signs (Past 12 Hours) Vital Signs Temp Pulse Pulse Resp BP Pulse Ox 05/10/19 10:49 36.5 C 61 20 164/74 H 98 05/10/19 07:13 36.7 C 65 20 157/74 H 99 05/10/19 07:09 64 16 98 05/10/19 03:30 36.6 C 64 19 148/53 H 100 Supervising Physician Co-Signing Physician Notes Late entry for visit and exam done on 05/10. Patient seen and examined, at bedside. Patient to have a family meeting later this afternoon when 2 of their daughters can be present. Collaborated with GERONIMO Pillai PE: Patient awake and alert, mild respiratory distress HEENT: EOMI, hearing within normal limits Respirations: Comfortable at rest, increased work of breathing with conversation CV: Regular rate Abdomen :not distended Neuro: alert and oriented Will continue to follow and assist patient and family with medical decision making PG Care Time/CCT Prolonged Care Time Prolonged Care Time: Yes Total Prolonged Care Time: 95 Time Spent Midlevel 95 minutes with >50% of the time spent at bedside with patient and family discussing goals and plan of care.
[2019-05-10] MEDS: AZITHROMYCIN 500 MG in DEXTROSE 5% 250 ML IV SCH (15:30)
[2019-05-10 18:21] LABS: BUN Creatinine Ratio 24.5 (10-20); Calcium 8.4 mg/dl (8.5-10.1); Creatinine Clr Calc Pharmacy 19.7 ml/min; Est GFR (African American) 29.3; Est GFR (Non-African American) 25.3; Potassium 3.8 mmol/L (3.5-5.1)
[2019-05-10 18:27] LABS: Creatinine Urine Random 82.5 mg/dl
[2019-05-10] MEDS ORDERED: SODIUM CHLORIDE 0.9% 1000ML 1,000 ML IV SCH (19:00)
[2019-05-10] MEDS: dilTIAZem HCL 125 MG in DEXTROSE 5% 100 ML IV SCH ×2 (19:43→19:44)
[2019-05-10] MEDS ORDERED: SODIUM CHLORIDE 3 % 500 ML IV SCH (21:00)
[2019-05-11 00:05] LABS: BUN Creatinine Ratio 25.5 (10-20); Calcium 8.5 mg/dl (8.5-10.1); Creatinine Clr Calc Pharmacy 20.7 ml/min; Est GFR (African American) 31.1; Est GFR (Non-African American) 26.8; Potassium 3.3 mmol/L (3.5-5.1)
[2019-05-11] MEDS: POTASSIUM CHLORIDE / WTR 10 MEQ/100 ML PLCT IV SCH ×3 (00:37→02:29)
[2019-05-11 06:33] LABS: Hematocrit (blood only) 34.3 % (37-47); Hemoglobin 11.5 g/dL (12.0-16.0); Mean Corpuscular Hemoglobin 29.2 pg (25-34); Mean Corpuscular Hgb Conc 33.5 g/dL (32-36); Mean Corpuscular Volume 87.1 fL (80-100); Mean Platelet Volume 10.3 fL (7.4-10.4); Platelet Count 360 K/uL (130-400); RDW Coefficient of Variation 14.6 % (11.5-14.5); RDW Standard Deviation 46.3 fL (36.4-46.3); Red Blood Count 3.94 M/uL (4.2-5.4); White Blood Count 14.24 K/uL (4.8-10.8)
[2019-05-11] MEDS: ARFORMOTEROL TART 15MCG/2ML VIAL INH SCH ×2 (06:53→19:16)
[2019-05-11 07:13] LABS: BUN Creatinine Ratio 27.2 (10-20); Calcium 8.4 mg/dl (8.5-10.1); Creatinine Clr Calc Pharmacy 23.1 ml/min; Est GFR (African American) 35.7; Est GFR (Non-African American) 30.8; Magnesium 2.1 mg/dl (1.8-2.4); Potassium 3.3 mmol/L (3.5-5.1)
[2019-05-11] MEDS: INSULIN ASPART 100 UNITS/ML 3 ML PEN SC SCH ×4 (07:34→20:42)
[2019-05-11] MEDS: ATORVASTATIN 10 MG TAB PO SCH (07:38)
[2019-05-11] MEDS: APIXABAN 2.5 MG TAB PO SCH ×2 (07:38→20:39)
[2019-05-11] MEDS: CHOLECALCIFEROL 1,000 UNITS TAB PO SCH (07:39)
[2019-05-11] MEDS: FAMOTIDINE 20 MG TAB PO SCH (07:39)
[2019-05-11] MEDS: ASCORBIC ACID 500 MG TAB PO SCH (07:39)
[2019-05-11] MEDS: CLOPIDOGREL BISULFATE 75 MG TAB PO SCH (07:40)
[2019-05-11] MEDS: METOPROLOL TARTRATE 25 MG TAB PO SCH ×2 (07:40→20:39)
[2019-05-11] MEDS: AMLODIPINE BESYLATE 5 MG TAB PO SCH (07:40)
[2019-05-11] MEDS: ASPIRIN 81 MG ECTAB PO SCH (07:41)
[2019-05-11] MEDS: dilTIAZem HCL 240 MG CAPCR PO SCH (07:41)
--- NOTE | 2019-05-11 07:42 | Hospitalist Progress Note ---
Date of Service May 11, 2019 Assessment & Plan (1) Hyponatremia: Admission Na was 130. - Down to 118 on 05/10; possibly due to Lasix and poor PO intake (low solute). - Discussed with Dr. Fung today. Will start tolvaptan and Lasix to help prevent the hyponatremia and still diurese. (2) Acute on chronic diastolic (congestive) heart failure: Pulm edema seen on pCXR & BNP > 35,000. She admits to not consistently taking her medications as she is busy caring for her . Likely worsened by her afib with RVR. - Supplemental O2 as needed (uses 2L at home; presently on 3L) - Low-dose morphine PRN for air hunger/shortness of breath worked well, but patient and family worry about sedation. - At present, O2 demand is coming down, but patient still feels shortness of breath. No change today, though her O2 sat is good. (3) Atrial fibrillation with rapid ventricular response: PMH paroxysmal afib on Eliquis. Patient is likely not taking her home medicines regularly. - Restarted home beta-zulma and calcium channel zulma -> Rates now in the 60-70 range with some pacing. - Continue home apixaban (4) Hypertension: BP high today at 170/80. - Continue home meds as above - Hydralazine PRN (5) Diabetes type 2, controlled: A1c was 6.3% in 02/2019. - Continue home Lantus - Lower dose for poor PO intake. - Sliding scale insulin - Blood sugar dropped overnight. Lantus down to 15 units. (6) CKD (chronic kidney disease) stage 4, GFR 15-29 ml/min: Baseline Cr ~1.7 with some variation. - On 05/09, it bumped to 2.1 after diuresis. - Down to baseline on 05/11 after holding Lasix and giving gentle fluids. - Monitor (7) Coronary artery disease, occlusive: Troponins stable at 0.2-0.3. No chest pain. - Continue home ASA, Plavix, statin, beta-zulma, Imdur (8) H/O heart block: With pacemaker. Occasionally paced on telemetry. - No inpatient needs (9) Esophageal reflux: - Continue PPI (10) DVT prophylaxis: On apixaban for afib Subjective She is still feeling tired and reports continued shortness of breath. However, she is more awake than yesterday. Reports no fevers/chills, chest pain, shortness of breath, abdominal pain, nausea, or vomiting. Physical Exam Constitutional: WD/WN, vitals as above + lethargic Eyes: EOM intact bilaterally; no conjunctival abnormality ENMT: external ear and nose normal, oropharynx normal Neck: trachea midline, no thyromegaly normal visual inspection Respiratory: + labored breathing and + uses accessory muscles Auscultation: + diminished lung sounds; no wheezes Cardiovascular: RRR, no murmur, no edema Gastrointestinal (Abdomen): Inspection/Auscultation: abdomen normal to inspection; abdomen not distended Musculoskeletal: no cyanosis or clubbing, extremities motor strength 5/5 Skin: no rashes, warm and dry Neurologic: moves all extremities and awake Psychiatric: Orientation: alert, oriented to person and cooperative Results & Data Vital Signs (Past 12 Hours) Vital Signs Temp Pulse Pulse Pulse Resp BP Pulse Ox 05/11/19 06:57 71 20 96 05/11/19 04:30 36.5 C 66 20 187/83 H 99 05/11/19 00:07 67 05/10/19 23:00 36.4 C L 61 22 198/88 H 92 05/10/19 19:48 63 18 100 PG Care Time/CCT Total # of Minutes Spent Total Time Spent with Patient: Total time spent is greater than 50% in coordination of care (as documented) at patient's floor/unit and/or counseling patient:
[2019-05-11] MEDS ORDERED: Nursing to Pharmacy Communication ONE (08:01)
[2019-05-11] MEDS ORDERED: INSULIN GLARGINE SOLOSTAR 100 UNITS/ML 3 ML PEN SC SCH (09:00)
--- NOTE | 2019-05-11 09:11 | Palliative Care Progress Note ---
Date of Service May 11, 2019 Assessment & Plan (1) Goals of care, counseling/discussion: -Patient seen this morning with her son at the bedside. -Sodium dropped to 118 yesterday evening, potassium was low. PICC line was inserted for hypertonic solution. Her potassium was replaced. -Patient does seem slightly more alert today, she denies any new complaints. -Plan for after hospitalization is for home with hospice and private duty caregivers. This is not in place yet, will speak with case management today for help with planning. -Patient continues to have some acute medical issues that the hospitalist is working to correct. Patient does not want invasive or aggressive measures which she has made clear many times. Family is supportive of this as well. -Will conitnue to follow. (2) Acute on chronic diastolic (congestive) heart failure: (3) Elevated troponin: Subjective Patient seen this morning with son at the bedside. Issues with electrolyte imbalances last evening. Patient is slightly more alert today, is oriented for the most part. Review of Systems Review of Systems: +weakness, +SOB Denies Pain or N/V Physical Exam Constitutional: no acute distress ENMT: external ear and nose normal, oropharynx normal Respiratory: + tachypneic (with talking) Auscultation: + diminished lung sounds Cardiovascular: Rate/Rhythm: regular rate and + irregularly irregular Gastrointestinal (Abdomen): Inspection/Auscultation: abdomen normal to i nspection and normal bowel sounds Percussion/Palpation: abdomen soft; abdomen nontender Neurologic: moves all extremities and awake (only slightly drowsy today); not confused Psychiatric: Orientation: oriented x 3 Results & Data Vital Signs (Past 12 Hours) Vital Signs Temp Pulse Pulse Pulse Resp BP Pulse Ox 05/11/19 07:55 71 182/93 H 99 05/11/19 07:53 36.5 C 05/11/19 06:57 71 20 96 05/11/19 04:30 36.5 C 66 20 187/83 H 99 05/11/19 00:07 67 05/10/19 23:00 36.4 C L 61 22 198/88 H 92 Time Spent Midlevel 25 minutes with >50% of the time spent at bedside with patient and family discussing plan of care.
[2019-05-11] MEDS ORDERED: TOLVAPTAN 15 MG TABLET PO STA (09:20)
--- NOTE | 2019-05-11 11:04 | Consultation Report ---
DATE OF CONSULTATION: 05/11/2019 SUBJECTIVE: Mrs. Santos is well known to me. I have been involved in her care for several years. Her chronic issues include a longstanding history of hypertension. Her blood pressure has been intermittently controlled with a combination of amlodipine 5 mg daily, diltiazem ER 240 mg daily, furosemide 40 mg daily and metolazone 5 mg daily as well as metoprolol tartrate 25 mg taken twice daily and isosorbide mononitrate ER 60 mg daily. Obviously, the latter 2 medications are also used in treatment for her symptomatic coronary disease. She has had no recent target organ symptoms of hypertension until the current admission. She had not had until recently any symptoms of cardiovascular, cerebrovascular or peripheral vascular disease. Additionally, she has a history of hypercholesterolemia that has been well controlled with atorvastatin in a dose of only 10 mg daily. She also has a history of type 2 insulin-dependent diabetes mellitus. She tries to follow a restricted carbohydrate diet, but recognizes that she has not always been compliant. She uses Lantus insulin as an outpatient in a dose of 30 units each morning. She checks her blood sugars only on occasion and says that they are usually "good." She denies having polyuria or polydipsia. Her most recent hemoglobin A1c was about 7%. She has a known history of coronary artery disease. Clinically, she has been stable with no symptoms of angina pectoris. However, she was admitted with symptoms and indications of congestive heart failure. She has chronic renal insufficiency that is multifactorial as well, likely relates to her longstanding history of hypertension and vascular disease as well as her diabetes. Additionally, she has a history of a right renal artery stenosis for which she underwent an angioplasty, and deployment of a drug-eluting stent several years ago. She has remained on an 81 mg aspirin and clopidogrel 75 mg daily since then. She has not had any symptoms of uremia and until recently, no real symptoms of volume overload. She has a history of paroxysmal atrial fibrillation. She also has a history of a sick sinus syndrome for which she has a cardiac pacemaker. She has been anticoagulated with Eliquis in a dose of 2.5 mg twice daily; however, recently she had been taking 5 mg twice daily. The reasons are not clear to me. 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 As a result, she has chronic respiratory insufficiency and has remained oxygen dependent. She uses oxygen throughout the course of the day. She is on multiple pulmonary medications as prescribed by Dr. Lang and Antonio Sebastian. Her level of compliance recently has been questionable. She has been helping to care for her and admits that from time to time, she does not take her medications. Family members were also suspicious of the fact that she has not been using her medications as prescribed. She was admitted to the hospital 3 days ago. At that time, she was complaining of increasing problems with shortness of breath. She has had a cough that has been minimally productive. She had no shaking chills or fevers. She has not been eating well prior to her admission. She admitted that she was not taking her medications as prescribed. In the Emergency Room, she was found to have significant issue with hypoxemia and a chest x-ray showed right pleural effusion and evidence of congestive heart failure. She was admitted to the hospital and started on diuretic therapy with intravenous Lasix. During the course of her stay, she has become increasingly hyponatremic. At the time of admission, her serum sodium was 130. However, with diuresis, her sodium dropped to a low of 118 mmol/L on 05/10/2019. At that time, the fluid restriction was instituted. Her Lasix has been held. Her chest x-ray continues to show evidence of volume overload and a right pleural effusion. She has had a left pneumonectomy. She remains weak and lethargic. It is difficult to say if she is particularly confused. The remainder of her past history appears on her old medical records that are included in the [employer] database as well as her recent admission notes. OBJECTIVE: GENERAL: At the current time, Mrs. Santos appears as a chronically and acutely ill woman of about her stated age of 78. VITAL SIGNS: Her blood pressure this morning is 182/93 with a pulse of 71 and regular. Her respiratory rate was 20 and her pulse ox on oxygen is 99%. She is afebrile. SKIN: Shows normal skin turgor. She has scars from prior surgical procedures. There is no obvious rash or infiltrative skin disease. She has no obvious palpable lymphadenopathy. HEAD: Normal. EYES: Grossly normal. EARS, NOSE, MOUTH, AND THROAT: Unremarkable. She is edentulous and her oral mucous membranes are moist. NECK: Supple. She does have jugular venous distention lying at about 20 degrees. I hear no carotid bruit and there is no thyromegaly. CHEST: Shows markedly diminished or absent breath sounds on the left. She has diminished breath sounds at the right base and a few rales in the right mid lung field. CARDIAC: Shows a basically regular rhythm. I did not hear any definite murmur or gallop. ABDOMEN: Nontender. She has bowel sounds present. I do not hear abdominal bruits. EXTREMITIES: Show no cyanosis, clubbing or peripheral edema. NEUROLOGIC: Shows no lateralizing findings. PERTINENT LABORATORY WORK: From today shows a white count of 14,240. Her hemoglobin is 11.5, her hematocrit 34.3 and a platelet count 360,000. Clinical chemistries show a sodium this morning up to 124 from 118 yesterday, her potassium is 3.3, chloride 85 and total CO2 of 33 mmol/L. Her BUN is 43 and her creatinine 1.57. A random blood sugar this morning was 48, but her blood sugars have varied from a low of 48 to a high of 194. Her serum calcium is 8.4 and her serum magnesium 2.1. Urine studies include a routine urinalysis from yesterday that shows a specific gravity of 1.017. She has 2+ protein. Her spun sediment shows greater than 30 white cells and 0-4 red cells per high power field. She has 5-10 hyalin casts and greater than 30 epithelial cells. Urine osmolality on 05/09/2019 was 315 and yesterday 407. ASSESSMENT: At the current time, Mrs. Santos appears to still be in congestive heart failure, but she is markedly hyponatremic. Her sodium, however, did increase when a fluid restriction of 1200 mL per 24 hours was instituted. Her estimated serum osmolality would be twice her serum sodium which would mean that as of this morning. Her serum osmolality is 250. As of yesterday, it would have been about 242. Her urine osmolality done yesterday was 407. Obviously, she is concentrating her urine inappropriately and that would be consistent with SIADH, particularly since she has not been receiving any IV free water. The probability is that with her diuretic therapy and the presumed excessive secretion of any diuretic hormone that she is reabsorbing more free water that presents itself to the distal tubule because of the use of both Lasix and metolazone. The fact that her blood pressure is normal or high would indicate that she is not really total body sodium depleted. RECOMMENDATIONS: I discussed the situation with Dr. Canelo Bal who is her hospitalist. Although typically one does not like to assume the patient has SIADH when they have some degree of renal insufficiency, I do not see any other alternative at this time. Nonetheless, we agreed that she should continue to restrict her fluids to about 1200 mL per day for the time being and that we could reinstitute the use of Lasix. Additionally, it may be of value to add tolvaptan in a dose of 15 mg daily. I would prescribe it on a daily basis to make sure her serum sodium does not rise too precipitously. Hopefully, that will help her diuresis of free water and lead to an increase in her serum sodium. It will likely take a few days to see the results of this plan. Hopefully, will be able to improve her clearance of free water as well as sodium with this plan. It may be that her pleural effusion and compressive atelectasis that is noted in the right lung is the cause of her SIADH. One could definitively prove the fact that she does have SIADH by checking in any diuretic hormone level. However, clinically that is not going to be helpful since we probably would not get the results for at least a week. I will be away for the next 2 days. Our plan with Dr. Bal has been laid out. If any additional help from nephrology is necessary, Dr. Purvis is likely control supervisor this weekend and I am sure would be happy to lend-a-hand. I do not think that that would be necessary. I had a long discussion with the patient's daughter regarding these issues. In the long run, once she gets out of heart failure and is breathing better, she still will be weak and I suspect some interim type of care in the nursing facility will be necessary in the short term. Whether or not hospice in the long run is going to be appropriate is hard to say and will depend on how she responds to regular nursing care and ____ compliance with her medical regimen.
[2019-05-11] MEDS ORDERED: FUROSEMIDE 40 MG in SYRINGE 0 ML IV ONE (12:30)
[2019-05-11 13:40] LABS: BUN Creatinine Ratio 28.4 (10-20); Calcium 8.4 mg/dl (8.5-10.1); Creatinine Clr Calc Pharmacy 24.2 ml/min; Est GFR (African American) 37.7; Est GFR (Non-African American) 32.6; Potassium 3.2 mmol/L (3.5-5.1)
[2019-05-11] MEDS: cefTRIAXone SODIUM 1,000 MG in DEXTROSE 5% 50 ML IV SCH (14:17)
[2019-05-11] MEDS: AZITHROMYCIN 500 MG in DEXTROSE 5% 250 ML IV SCH (16:42)
[2019-05-11] MEDS: ISOSORBIDE MONO EXTENDED REL 60 MG TABCR PO SCH (17:07)
[2019-05-11 19:07] LABS: Calcium 8.6 mg/dl (8.5-10.1); Creatinine Clr Calc Pharmacy 22.4 ml/min; Est GFR (African American) 34.4; Est GFR (Non-African American) 29.7; Potassium 2.8 mmol/L (3.5-5.1)
[2019-05-12 01:34] LABS: BUN Creatinine Ratio 27.1 (10-20); Calcium 8.9 mg/dl (8.5-10.1); Creatinine Clr Calc Pharmacy 25.2 ml/min; Est GFR (African American) 39.7; Est GFR (Non-African American) 34.2; Potassium 2.6 mmol/L (3.5-5.1)
[2019-05-12] MEDS: DEXTROSE 50% 50 ML SYRINGE IV PRN ×2 (04:10→07:25)
[2019-05-12 06:04] LABS: Hematocrit (blood only) 31.9 % (37-47); Hemoglobin 10.7 g/dL (12.0-16.0); Mean Corpuscular Hemoglobin 29.7 pg (25-34); Mean Corpuscular Hgb Conc 33.5 g/dL (32-36); Mean Corpuscular Volume 88.6 fL (80-100); Mean Platelet Volume 9.6 fL (7.4-10.4); Platelet Count 317 K/uL (130-400); RDW Coefficient of Variation 14.6 % (11.5-14.5); RDW Standard Deviation 47.3 fL (36.4-46.3); White Blood Count 11.06 K/uL (4.8-10.8)
[2019-05-12 06:52] LABS: Albumin Globulin Ratio 0.7 (0.9-2); Albumin Level 2.5 gm/dl (3.4-5.0); BUN Creatinine Ratio 25.5 (10-20); Bilirubin,Total 0.4 mg/dl (0.2-1); Calcium 8.5 mg/dl (8.5-10.1); Creatinine Clr Calc Pharmacy 24.7 ml/min; Est GFR (African American) 38.7; Est GFR (Non-African American) 33.4; Globulin 3.6 gm/dl (2.5-4.0); Phosphorus 3.4 mg/dl (2.5-4.9); Total Protein 6.1 gm/dl (6.4-8.2)
[2019-05-12] MEDS ORDERED: POTASSIUM CHLORIDE 20 MEQ TABCR PO STA (06:57)
[2019-05-12] MEDS: ARFORMOTEROL TART 15MCG/2ML VIAL INH SCH ×2 (07:12→18:55)
[2019-05-12] MEDS: POTASSIUM CHLORIDE / WTR 10 MEQ/100 ML PLCT IV SCH ×6 (07:35→12:59)
[2019-05-12] MEDS: ASCORBIC ACID 500 MG TAB PO SCH (07:36)
[2019-05-12] MEDS: APIXABAN 2.5 MG TAB PO SCH ×2 (07:36→20:35)
[2019-05-12] MEDS: dilTIAZem HCL 240 MG CAPCR PO SCH (07:36)
[2019-05-12] MEDS: FAMOTIDINE 20 MG TAB PO SCH (07:36)
[2019-05-12] MEDS: ASPIRIN 81 MG ECTAB PO SCH (07:36)
[2019-05-12] MEDS: CHOLECALCIFEROL 1,000 UNITS TAB PO SCH (07:37)
[2019-05-12] MEDS: ISOSORBIDE MONO EXTENDED REL 60 MG TABCR PO SCH (07:37)
[2019-05-12] MEDS: METOPROLOL TARTRATE 25 MG TAB PO SCH ×2 (07:37→20:35)
[2019-05-12] MEDS: ATORVASTATIN 10 MG TAB PO SCH (07:37)
[2019-05-12] MEDS: AMLODIPINE BESYLATE 5 MG TAB PO SCH (07:37)
[2019-05-12] MEDS: CLOPIDOGREL BISULFATE 75 MG TAB PO SCH (07:37)
[2019-05-12 09:03] LABS: Potassium 2.9 mmol/L (3.5-5.1)
[2019-05-12 09:08] LABS: Magnesium 1.9 mg/dl (1.8-2.4)
[2019-05-12] MEDS: INSULIN ASPART 100 UNITS/ML 3 ML PEN SC SCH ×4 (09:15→20:36)
[2019-05-12] MEDS ORDERED: TOLVAPTAN 15 MG TABLET PO STA (11:33)
--- NOTE | 2019-05-12 11:36 | Hospitalist Progress Note ---
Date of Service May 12, 2019 Assessment & Plan (1) Hyponatremia: Admission Na was 130. - Down to 118 on 05/10; possibly due to Lasix and poor PO intake (low solute). - Discussed with Dr. Fung on 05/11. 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 Started tolvaptan and Lasix to help prevent the hyponatremia and still diurese. - Doing well today. Na up. Very successful diuresis yesterday. (2) Acute on chronic diastolic (congestive) heart failure: Pulm edema seen on pCXR & BNP > 35,000. She admits to not consistently taking her medications as she is busy caring for her . Likely worsened by her afib with RVR. - Supplemental O2 as needed (uses 2L at home; presently on 3L) - Low-dose morphine PRN for air hunger/shortness of breath worked well, but patient and family worry about sedation. - At present, O2 demand is coming down, but patient still feels shortness of breath. Improving today. (3) Atrial fibrillation with rapid ventricular response: PMH paroxysmal afib on Eliquis. Patient is likely not taking her home medicines regularly. - Restarted home beta-zulma and calcium channel zulma -> Rates now in the 60-70 range with some pacing. - Continue home apixaban. No bleeding. (4) Hypertension: BP better today at 150/80. - Continue home meds as above - Hydralazine PRN (5) Diabetes type 2, controlled: A1c was 6.3% in 02/2019. - Continue home Lantus - Lower dose for poor PO intake. - Sliding scale insulin - Blood sugar dropped overnight. Lantus down to 15 units on 05/11. Still low in the morning. Holding all long-acting insulin right now. (6) CKD (chronic kidney disease) stage 4, GFR 15-29 ml/min: Baseline Cr ~1.7 with some variation. - On 05/09, it bumped to 2.1 after diuresis. - Down to baseline on 05/12. - Monitor (7) Coronary artery disease, occlusive: Troponins stable at 0.2-0.3. No chest pain. - Continue home ASA, Plavix, statin, beta-zulma, Imdur (8) H/O heart block: With pacemaker. Occasionally paced on telemetry. - No inpatient needs (9) Esophageal reflux: - Continue PPI (10) DVT prophylaxis: On apixaban for afib Subjective Doing better today by a good margin. Overall, with more energy. She still reports shortness of breath, but it has improved today as well. Reports no fevers/chills, chest pain, abdominal pain, nausea, or vomiting. Physical Exam Constitutional: WD/WN, vitals as above not lethargic Eyes: EOM intact bilaterally; no conjunctival abnormality ENMT: external ear and nose normal, oropharynx normal Neck: trachea midline, no thyromegaly normal visual inspection Respiratory: + labored breathing; does not use accessory muscles Auscultation: + diminished lung sounds; no wheezes Cardiovascular: RRR, no murmur, no edema Gastrointestinal (Abdomen): Inspection/Auscultation: abdomen normal to inspection; abdomen not distended Musculoskeletal: no cyanosis or clubbing, extremities motor strength 5/5 Skin: no rashes, warm and dry Neurologic: moves all extremities and awake Psychiatric: Orientation: alert, oriented to person and cooperative Results & Data Vital Signs (Past 12 Hours) Vital Signs Temp Pulse Pulse Resp BP Pulse Ox 05/12/19 07:14 63 17 99 05/12/19 07:13 63 17 99 05/12/19 06:57 36.9 C 63 18 158/56 H 100 05/12/19 03:29 36.5 C 64 18 162/65 H 100 05/12/19 00:00 65 PG Care Time/CCT Total # of Minutes Spent Total Time Spent with Patient: Total time spent is greater than 50% in coordination of care (as documented) at patient's floor/unit and/or counseling patient:
[2019-05-12] MEDS ORDERED: FUROSEMIDE 40 MG in SYRINGE 0 ML IV ONE (11:45)
[2019-05-12 12:52] LABS: Est GFR (African American) 38.4; Potassium 4.8 mmol/L (3.5-5.1)
[2019-05-12 12:53] LABS: BUN Creatinine Ratio 23.7 (10-20); Calcium 8.7 mg/dl (8.5-10.1); Creatinine Clr Calc Pharmacy 24.5 ml/min; Est GFR (Non-African American) 33.1
[2019-05-12] MEDS: AZITHROMYCIN 500 MG in DEXTROSE 5% 250 ML IV SCH (15:53)
[2019-05-12] MEDS: cefTRIAXone SODIUM 1,000 MG in DEXTROSE 5% 50 ML IV SCH (15:53)
--- NOTE | 2019-05-12 16:47 | Billing Data ---
Date of Service May 08, 2019 Coding Level of Care Code 26937 Initial Inpt Care Lvl 3
[2019-05-12 21:19] LABS: BUN Creatinine Ratio 25.2 (10-20); Calcium 8.6 mg/dl (8.5-10.1); Creatinine Clr Calc Pharmacy 23.9 ml/min; Est GFR (African American) 37.1
[2019-05-13 05:48] LABS: Hematocrit (blood only) 31.3 % (37-47); Hemoglobin 10.1 g/dL (12.0-16.0); Mean Corpuscular Hemoglobin 29.2 pg (25-34); Mean Corpuscular Hgb Conc 32.3 g/dL (32-36); Mean Corpuscular Volume 90.5 fL (80-100); Mean Platelet Volume 9.6 fL (7.4-10.4); Platelet Count 314 K/uL (130-400); RDW Coefficient of Variation 14.9 % (11.5-14.5); RDW Standard Deviation 48.8 fL (36.4-46.3); Red Blood Count 3.46 M/uL (4.2-5.4); White Blood Count 7.98 K/uL (4.8-10.8)
[2019-05-13 06:25] LABS: Calcium 8.3 mg/dl (8.5-10.1); Creatinine Clr Calc Pharmacy 25.2 ml/min; Est GFR (African American) 39.7; Est GFR (Non-African American) 34.2; Magnesium 1.8 mg/dl (1.8-2.4); Potassium 3.5 mmol/L (3.5-5.1)
[2019-05-13 06:26] LABS: Phosphorus 2.6 mg/dl (2.5-4.9)
[2019-05-13] MEDS: ARFORMOTEROL TART 15MCG/2ML VIAL INH SCH ×2 (07:19→19:07)
[2019-05-13] MEDS: INSULIN ASPART 100 UNITS/ML 3 ML PEN SC SCH ×4 (07:57→20:32)
[2019-05-13] MEDS: APIXABAN 2.5 MG TAB PO SCH ×2 (07:58→20:34)
[2019-05-13] MEDS: FAMOTIDINE 20 MG TAB PO SCH (07:59)
[2019-05-13] MEDS: CHOLECALCIFEROL 1,000 UNITS TAB PO SCH (07:59)
[2019-05-13] MEDS: ATORVASTATIN 10 MG TAB PO SCH (07:59)
[2019-05-13] MEDS: AMLODIPINE BESYLATE 5 MG TAB PO SCH (07:59)
[2019-05-13] MEDS: CLOPIDOGREL BISULFATE 75 MG TAB PO SCH (07:59)
[2019-05-13] MEDS: METOPROLOL TARTRATE 25 MG TAB PO SCH ×2 (07:59→20:34)
[2019-05-13] MEDS: ISOSORBIDE MONO EXTENDED REL 60 MG TABCR PO SCH (07:59)
[2019-05-13] MEDS: ASPIRIN 81 MG ECTAB PO SCH (08:00)
[2019-05-13] MEDS: dilTIAZem HCL 240 MG CAPCR PO SCH (08:00)
[2019-05-13] MEDS: ASCORBIC ACID 500 MG TAB PO SCH (08:04)
[2019-05-13] MEDS ORDERED: TOLVAPTAN 15 MG TABLET PO STA (08:28)
[2019-05-13] MEDS ORDERED: FUROSEMIDE 40 MG in SYRINGE 0 ML IV ONE (08:45)
[2019-05-13] MEDS: POTASSIUM CHLORIDE / WTR 10 MEQ/100 ML PLCT IV SCH ×6 (10:52→15:54)
--- NOTE | 2019-05-13 13:23 | Hospitalist Progress Note ---
Date of Service May 13, 2019 Assessment & Plan (1) Hyponatremia: Admission Na was 130. - Down to 118 on 05/10; due to Lasix and poor PO intake (low solute). - Discussed with Dr. Fung on 05/11. 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 Started tolvaptan and Lasix to help prevent the hyponatremia and still diurese. - Doing well today. Na up. Very successful diuresis yesterday. She is doing significantly better in the last 24-48 hours. - I am individually dosing her tolvaptan and Lasix each day to make sure sodium and Cr are correcting steadily. She is doing so much better that I put in PT/OT for possible rehab instead of hospice as dispo. (2) Acute on chronic diastolic (congestive) heart failure: Pulm edema seen on pCXR & BNP > 35,000. She admits to not consistently taking her medications as she is busy caring for her . Likely worsened by her afib with RVR. - Supplemental O2 as needed (uses 2L at home; presently on 3L) - Low-dose morphine PRN for air hunger/shortness of breath worked well, but patient and family worry about sedation. - Good diuresis yesterday with net negative 2L with steady Cr. -> Gave additional dose of Lasix today. Cr stable. - Note: Patient needs lots of potassium. I have been giving usually 60 mEq day. She can get 20 mEq bags through her PICC line. (3) Pneumonia: Started ceftriaxone + azithromycin on 05/10 for increased WBC and opacities on CXR. She had been in the hospital for 48 hours, but didn't decompensate at all, just seemed to not be getting better. So, I went with CAP rather than HAP abx. - Finished azithromycin on 05/13 - Continue ceftriaxone x 5 days - End date: 05/14 - WBC normalized by 05/12 and patient is dramatically improved in the last 2 days. (4) Atrial fibrillation with rapid ventricular response: PMH paroxysmal afib on Eliquis. Patient was not taking her home medicines regularly. - Restarted home beta-zulma and calcium channel zulma -> Rates now in the 60-70 range with some pacing. - Continue home apixaban. No bleeding. (5) Hypertension: BP better today at 115/80. - Continue home meds as above - Hydralazine PRN - Watch BP as she diureses. Her BP is getting under much better control (initially as high as 215/120), likely due to her not being clamped down as much now. May even need to adjust BP meds as we get her milk drier. (6) Diabetes type 2, controlled: A1c was 6.3% in 02/2019. - Continue home Lantus - Lower dose for poor PO intake. - Sliding scale insulin - Blood sugar dropped overnight two times. Lantus was lowered to 15 units on 05/11, then stopped on 05/12. Overnight of 05/12 -> 05/13, she remained totally steady blood-sugar mcintyre. Now creeping up with meals. - Will increase her meal-time insulin, but hold any long-acting as she seems to be steady with her basal rate insulin, but needs more meal-time. (7) CKD (chronic kidney disease) stage 4, GFR 15-29 ml/min: Baseline Cr ~1.7 with some variation. - On 05/09, it bumped to 2.1 after diuresis. - Down to baseline on 05/12 & 05/13. - Monitor (8) Coronary artery disease, occlusive: Troponins stable at 0.2-0.3. No chest pain. - Continue home ASA, Plavix, statin, beta-zulma, Imdur (9) H/O heart block: With pacemaker. Occasionally paced on telemetry. - No inpatient needs (10) Esophageal reflux: - Continue PPI (11) DVT prophylaxis: On apixaban for afib Subjective Doing better today. She is in much better spirits. Breathing is improved. Reports no fevers/chills, chest pain, abdominal pain, nausea, or vomiting. Physical Exam Constitutional: WD/WN, vitals as above not lethargic Eyes: EOM intact bilaterally; no conjunctival abnormality ENMT: external ear and nose normal, oropharynx normal Neck: trachea midline, no thyromegaly normal visual inspection Respiratory: no labored breathing and does not use accessory muscles Auscultation: + diminished lung sounds; no wheezes Cardiovascular: RRR, no murmur, no edema Gastrointestinal (Abdomen): Inspection/Auscultation: abdomen normal to inspection; abdomen not distended Musculoskeletal: no cyanosis or clubbing, extremities motor strength 5/5 Skin: no rashes, warm and dry Neurologic: moves all extremities and awake Psychiatric: Orientation: alert, oriented to person and cooperative Results & Data Vital Signs (Past 12 Hours) Vital Signs Temp Pulse Pulse Pulse Resp BP BP 05/13/19 11:46 36.9 C 68 18 116/78 05/13/19 07:33 36.9 C 67 20 131/67 05/13/19 07:28 71 05/13/19 07:19 73 19 05/13/19 04:38 36.7 C 76 20 134/48 L Pulse Ox 05/13/19 11:46 99 05/13/19 07:33 100 05/13/19 07:28 05/13/19 07:19 99 05/13/19 04:38 99 PG Care Time/CCT Total # of Minutes Spent Total Time Spent with Patient: Total time spent is greater than 50% in coordination of care (as documented) at patient's floor/unit and/or counseling patient: (1) Pneumonia Laterality: right Lung location: lower lobe of lung Pneumonia type: due to unspecified organism Qualified Code(s): J18.1 - Lobar pneumonia, unspecified organism
[2019-05-13] MEDS: cefTRIAXone SODIUM 1,000 MG in DEXTROSE 5% 50 ML IV SCH (16:52)
[2019-05-13] MEDS: AZITHROMYCIN 500 MG in DEXTROSE 5% 250 ML IV SCH (17:44)
[2019-05-14 06:21] LABS: Hematocrit (blood only) 33.7 % (37-47); Hemoglobin 10.5 g/dL (12.0-16.0); Mean Corpuscular Hgb Conc 31.2 g/dL (32-36); Mean Corpuscular Volume 93.1 fL (80-100); Mean Platelet Volume 9.5 fL (7.4-10.4); Platelet Count 325 K/uL (130-400); RDW Standard Deviation 51.3 fL (36.4-46.3); Red Blood Count 3.62 M/uL (4.2-5.4); White Blood Count 8.68 K/uL (4.8-10.8)
[2019-05-14 06:54] LABS: BUN Creatinine Ratio 18.9 (10-20); Calcium 9.1 mg/dl (8.5-10.1); Creatinine Clr Calc Pharmacy 24.2 ml/min; Est GFR (African American) 39.3; Est GFR (Non-African American) 33.9
[2019-05-14] MEDS: ARFORMOTEROL TART 15MCG/2ML VIAL INH SCH ×2 (07:08→19:03)
[2019-05-14] MEDS: FAMOTIDINE 20 MG TAB PO SCH (08:30)
[2019-05-14] MEDS: ASCORBIC ACID 500 MG TAB PO SCH (08:30)
[2019-05-14] MEDS: APIXABAN 2.5 MG TAB PO SCH ×2 (08:30→21:19)
[2019-05-14] MEDS: CHOLECALCIFEROL 1,000 UNITS TAB PO SCH (08:30)
[2019-05-14] MEDS: ASPIRIN 81 MG ECTAB PO SCH (08:30)
[2019-05-14] MEDS: ATORVASTATIN 10 MG TAB PO SCH (08:30)
[2019-05-14] MEDS: dilTIAZem HCL 240 MG CAPCR PO SCH (08:30)
[2019-05-14] MEDS: AMLODIPINE BESYLATE 5 MG TAB PO SCH (08:30)
[2019-05-14] MEDS: CLOPIDOGREL BISULFATE 75 MG TAB PO SCH (08:31)
[2019-05-14] MEDS: ISOSORBIDE MONO EXTENDED REL 60 MG TABCR PO SCH (08:31)
[2019-05-14] MEDS: INSULIN ASPART 100 UNITS/ML 3 ML PEN SC SCH ×4 (08:34→21:19)
--- NOTE | 2019-05-14 10:55 | Progress Note ---
DATE: 05/14/2019 RENAL PROGRESS NOTE SUBJECTIVE: Mrs. Santos was sitting in a chair when seen by me today. It is obvious that she feels considerably better. She is not complaining of shortness of breath. She has no chest pain. She is eating at least full liquids. She has no symptoms of uremia or volume overload. She has no central nervous system symptoms or complaints at the current time, although the family has noted a bit of confusion this morning. OBJECTIVE: GENERAL: On physical exam, she appears remarkably better than she did 2 days ago. VITAL SIGNS: Her blood pressure is 176/64, which is the highest it has been for the past several days. Her pulse is 70 and irregular, respiratory rate 18, her pulse ox 98% on 2 liters of oxygen via nasal cannula. She is afebrile (36.7). SKIN: Shows essentially normal skin turgor. She has scars from prior surgical procedures. She has a few scattered ecchymoses on her upper arms. LYMPHATICS: Show no palpable lymphadenopathy. HEAD: Grossly normal. EYES: Grossly normal. Her conjunctivae are minimally injected. EARS, NOSE, MOUTH, AND THROAT: Unremarkable. She is wearing dentures. Oral mucous membranes are moist. NECK: Supple. At 90 degrees, there is no jugular venous distention. I hear no carotid bruit and there is no thyromegaly. CHEST: Shows diminished breath sounds on the left. Her right chest seems clear to auscultation. CARDIAC: Shows an irregularly irregular rhythm. I hear no definite murmur or gallop. ABDOMEN: Nontender. There is no obvious organomegaly or mass. Bowel sounds are normal. I hear no abdominal bruits. EXTREMITIES: Show no cyanosis, clubbing or peripheral edema. NEUROLOGIC: Shows her to be slightly confused. However, she has no lateralizing neurologic findings. PERTINENT LABORATORY WORK: From today shows a white count of 8680, her hemoglobin is 10.5, hematocrit 33.7, her platelet count is 325,000. Her clinical chemistries from today show a sodium of 136 mmol/L, potassium 4.6 mmol/L, chloride is 94 mmol/L, and CO2 content 40 mEq/L. Her BUN is 27, her creatinine is 1.45. Her other laboratory work shows a blood sugar that has varied from about 157-225. Her serum calcium is 9.1. Her phosphate 3.0. Her magnesium 2.0. ASSESSMENT: Certainly, Mrs. Santos appears dramatically better than she was on Tuesday, 05/11. She is awake and alert. She is minimally confused but has no lateralizing neurologic changes. Her systolic blood pressure is a bit high today compared to where it has been. It has been slightly elevated in the range of the 140s and 150s. Her diastolic blood pressure is controlled. Cardiac rhythm is somewhat irregular and on the monitor, it appears to be consistent with atrial fibrillation. She is saturating well. As far as her laboratory work is concerned, her sodium has returned to normal with tolvaptan. Her total CO2 is elevated at 40, which could represent a combination of a contraction metabolic alkalosis and a compensated respiratory acidosis. Arterial blood gases were to have been drawn, but the lab did have some difficulty and did not get them drawn. RECOMMENDATIONS: For now, would simply watch her for the next 24 hours and recheck her laboratory work. I would hold off on diuretics for today and certainly hold her tolvaptan. Hopefully, the lab will be able to draw arterial blood gases. No other immediate recommendations other than to continue to monitor and treat her blood sugar to try to bring it under better control.
[2019-05-14] MEDS: METOPROLOL TARTRATE 25 MG TAB PO SCH ×2 (12:32→21:18)
[2019-05-14] MEDS: cefTRIAXone SODIUM 1,000 MG in DEXTROSE 5% 50 ML IV SCH (14:42)
--- NOTE | 2019-05-14 15:30 | Palliative Care Progress Note ---
Date of Service May 14, 2019 Assessment & Plan (1) Goals of care, counseling/discussion: Patient is an 78-year-old female with above listed medical problems who was admitted on 05/08 for COPD exacerbation-patient has diuresed well-no lower extremity edema on exam. Patient with critical illness myopathy-would benefit from inpatient rehab to arrange strengthening prior to returning home. Patient agreeable-patient will need increased help at home caring for her with Alzheimer's disease. Will continue to follow peripherally-patient should be ready for discharge soon to rehab facility. (2) CHF (congestive heart failure): Markedly improved with aggressive diuresis, continue current meds (3) Elevated troponin: Improving (4) Atrial fibrillation with rapid ventricular response: Rate controlled, continue diltiazem and metoprolol for rate control, continue Eliquis, ASA and Plavix (5) Pneumonia: Completed course of IV antibiotics Subjective Patient awake and alert, no acute distress. Patient sitting up in a chair at bedside. Patient's color has improved as well as her respiratory status. Patient able to complete approximately three quarters of a sentence before needing to take a breath as opposed to only 4 words between breaths on prior exam. Review of Systems Review of Systems: Patient denies fever, chills, chest pain, increased shortness of breath, or abdominal pain. Patient notes her lower extremity edema is markedly improved Physical Exam Physical Exam: PE: Alert and oriented, NAD HEENT: EOMI, hearing within normal limits Respiratory: Coarse breath sounds right base, improved air movement, unlabored CV: Irregular, rate controlled, no edema Abdomen: Soft, nontender, not distended Neuro: Alert and oriented Results & Data Vital Signs (Past 12 Hours) Vital Signs Temp Pulse Pulse Resp BP BP Pulse Ox 05/14/19 15:02 98.2 F 66 23 177/67 H 100 05/14/19 11:41 98.4 F 75 19 72/46 L 100 05/14/19 07:08 70 18 98 05/14/19 06:56 98.1 F 65 18 176/64 H 99 05/14/19 04:40 98.1 F 64 18 167/69 H 100 PG Care Time/CCT Total # of Minutes Spent Total Time Spent with Patient: Total time spent is greater than 50% in coordination of care (as documented) at patient's floor/unit and/or counseling patient: (1) CHF (congestive heart failure) Heart failure chronicity: acute on chronic Heart failure type: unspecified Qualified Code(s): I50.9 - Heart failure, unspecified (2) Pneumonia Laterality: right Lung location: lower lobe of lung Pneumonia type: due to unspecified organism Qualified Code(s): J18.1 - Lobar pneumonia, unspecified organism
[2019-05-14] MEDS: AZITHROMYCIN 500 MG in DEXTROSE 5% 250 ML IV SCH (15:37)
[2019-05-14] MEDS: INSULIN GLARGINE SOLOSTAR 100 UNITS/ML 3 ML PEN SC SCH (21:19)
--- NOTE | 2019-05-14 21:31 | Hospitalist Progress Note ---
Date of Service May 14, 2019 Assessment & Plan (1) Hyponatremia: Admission Na was 130. - Down to 118 on 05/10; due to Lasix and poor PO intake (low solute). - Discussed with Dr. Fung on 05/11. 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 Started tolvaptan and Lasix to help prevent the hyponatremia and still diurese. - Doing well today, improved to 136 on 05/14. -D/W nephro, will hold tolvaptan and lasix. will recheck soidum and creatine tomorrow. Plan is for discharge tomorrow if labs look well. Dispo: Rehab with transition to hospice (2) Acute on chronic diastolic (congestive) heart failure: Pulm edema seen on pCXR & BNP > 35,000. She admits to not consistently taking her medications as she is busy caring for her . Likely worsened by her afib with RVR. - Supplemental O2 as needed (uses 2L at home; presently on 3L) - Low-dose morphine PRN for air hunger/shortness of breath worked well, but patient and family worry about sedation. -Patient appears to be euvolemic today. will monitor potassium tomorrow. Patient has required lots of potassium during hospital stay, but did not require any today. (3) Pneumonia: Started ceftriaxone + azithromycin on 05/10 for increased WBC and opacities on CXR. She had been in the hospital for 48 hours, but didn't decompensate at all, just seemed to not be getting better. So, I went with CAP rather than HAP abx. - Finished azithromycin on 05/13 - Continue ceftriaxone x 5 days - End date: 05/14 - WBC normalized by 05/12 (4) Atrial fibrillation with rapid ventricular response: PMH paroxysmal afib on Eliquis. Patient was not taking her home medicines regularly. - Restarted home beta-zulma and calcium channel zulma -> Rates now in the 60-70 range with some pacing. - Continue home apixaban. No bleeding. (5) Hypertension: BP controlled - Continue home meds as above - Hydralazine PRN (6) Diabetes type 2, controlled: A1c was 6.3% in 02/2019. - Continue home Lantus - Lower dose for poor PO intake. - Sliding scale insulin - Blood sugar dropped overnight two times. Lantus was lowered to 15 units on 05/11, then stopped on 05/12. Overnight of 05/12 -> 05/13, she remained totally steady blood-sugar mcintyre. Now creeping up with meals. - Will increase her meal-time insulin, but hold any long-acting as she seems to be steady with her basal rate insulin, but needs more meal-time. (7) CKD (chronic kidney disease) stage 4, GFR 15-29 ml/min: Baseline Cr ~1.7 with some variation. - On 05/09, it bumped to 2.1 after diuresis. - Down to baseline . - Monitor (8) Coronary artery disease, occlusive: Troponins stable at 0.2-0.3. No chest pain. - Continue home ASA, Plavix, statin, beta-zulma, Imdur (9) H/O heart block: With pacemaker. Occasionally paced on telemetry. - No inpatient needs (10) Esophageal reflux: - Continue PPI (11) DVT prophylaxis: On apixaban for afib Note: updated daughter at bedside Subjective 78 YO female reports no new changes today. She is interested in being discharged. She states she is breathing better. Review of Systems Review of Systems: All systems reviewed & are unremarkable except as noted in HPI & below Physical Exam Physical Exam: Constitutional: WD/WN, vitals as above sitting comfortably in chair Eyes: EOM intact bilaterally; no conjunctival abnormality ENMT: external ear and nose normal, oropharynx normal Neck: trachea midline, no thyromegaly normal visual inspection Respiratory: no labored breathing and does not use accessory muscles Auscultation: + diminished lung sounds; no wheezes Cardiovascular: RRR, no murmur, no edema Gastrointestinal (Abdomen): Inspection/Auscultation: abdomen normal to inspection; abdomen not distended Musculoskeletal: no cyanosis or clubbing, extremities motor strength 5/5 Skin: no rashes, warm and dry Neurologic: moves all extremities and awake Psychiatric: Orientation: alert, oriented to person and cooperative Results & Data Vital Signs (Past 12 Hours) Vital Signs Temp Pulse Pulse Pulse Resp BP BP 05/14/19 19:12 36.7 C 76 28 H 114/50 L 05/14/19 19:05 64 18 05/14/19 16:20 65 05/14/19 15:02 36.8 C 66 23 177/67 H 05/14/19 11:41 36.9 C 75 19 72/46 L Pulse Ox 05/14/19 19:12 99 05/14/19 19:05 98 05/14/19 16:20 05/14/19 15:02 100 05/14/19 11:41 100 PG Care Time/CCT Total # of Minutes Spent Total Time Spent with Patient: Total time spent is greater than 50% in coordination of care (as documented) at patient's floor/unit and/or counseling patient: (1) Pneumonia Laterality: right Lung location: lower lobe of lung Pneumonia type: due to unspecified organism Qualified Code(s): J18.1 - Lobar pneumonia, unspecified organism
[2019-05-15 05:37] LABS: Oxygen Saturation VBG 62.4 %; pH VBG 7.4 (7.36-7.41)
[2019-05-15 05:59] LABS: BUN Creatinine Ratio 19.3 (10-20); Calcium 8.8 mg/dl (8.5-10.1); Creatinine Clr Calc Pharmacy 24.8 ml/min; Est GFR (African American) 40.7; Est GFR (Non-African American) 35.1; Potassium 4.1 mmol/L (3.5-5.1)
[2019-05-15] MEDS: ARFORMOTEROL TART 15MCG/2ML VIAL INH SCH ×2 (07:00→19:21)
[2019-05-15] MEDS: ISOSORBIDE MONO EXTENDED REL 60 MG TABCR PO SCH (07:38)
[2019-05-15] MEDS: AMLODIPINE BESYLATE 5 MG TAB PO SCH (07:38)
[2019-05-15] MEDS: CLOPIDOGREL BISULFATE 75 MG TAB PO SCH (07:38)
[2019-05-15] MEDS: ATORVASTATIN 10 MG TAB PO SCH (07:38)
[2019-05-15] MEDS: dilTIAZem HCL 240 MG CAPCR PO SCH (07:39)
[2019-05-15] MEDS: CHOLECALCIFEROL 1,000 UNITS TAB PO SCH (07:39)
[2019-05-15] MEDS: METOPROLOL TARTRATE 25 MG TAB PO SCH ×2 (07:39→19:58)
[2019-05-15] MEDS: ASCORBIC ACID 500 MG TAB PO SCH (07:39)
[2019-05-15] MEDS: APIXABAN 2.5 MG TAB PO SCH ×2 (07:39→19:58)
[2019-05-15] MEDS: ASPIRIN 81 MG ECTAB PO SCH (07:40)
[2019-05-15] MEDS: INSULIN GLARGINE SOLOSTAR 100 UNITS/ML 3 ML PEN SC SCH ×3 (07:40→21:33)
[2019-05-15] MEDS: FAMOTIDINE 20 MG TAB PO SCH (07:40)
[2019-05-15] MEDS: INSULIN ASPART 100 UNITS/ML 3 ML PEN SC SCH ×4 (07:43→20:13)
--- NOTE | 2019-05-15 10:09 | Progress Note ---
DATE: 05/15/2019 SUBJECTIVE: Mrs. Santos says that she is feeling better. She has gotten some physical therapy in bed predominantly for strengthening her legs. She has not been fully ambulatory. She otherwise feels well. She denies having any shortness of breath and denies having any chest pain. She denies any focal neurologic complaints other than her generalized weakness. OBJECTIVE: GENERAL: On physical exam, she appears well. She is awake, alert and oriented. VITAL SIGNS: Her blood pressure 101/63, her pulse 84 and regular, respiratory rate 19, her pulse ox 98% on 3 liters of oxygen via nasal cannula. She is afebrile (36.4). SKIN: Shows slightly diminished skin turgor. She has scars from prior surgical procedures. She has some scattered ecchymoses on her arms. LYMPHATICS: Show no palpable lymphadenopathy. HEAD: Normal. EYES: Grossly normal. The ocular fundi were not examined. EARS, NOSE, MOUTH, AND THROAT: All unremarkable. Her oral mucous membranes are moist. NECK: Supple. She has jugular venous distention to the angle of the jaw at approximately 30 degrees. She has no carotid bruit and there is no thyromegaly. CHEST: Shows diminished breath sounds on the left. Her right chest seems clear to auscultation. CARDIAC: Shows an irregularly irregular rhythm. I hear no definite murmur or gallop. ABDOMEN: Nontender. She has no organomegaly or mass. Bowel sounds are normal. She has no abdominal bruits. EXTREMITIES: Show no cyanosis, clubbing or peripheral edema. NEUROLOGIC: Shows no lateralizing changes. PERTINENT LABORATORY WORK: From today shows sodium of 136 mmol/L, potassium 4.1 mmol/L, chloride is 94 mmol/L, and CO2 content 41 mmol/L. Her BUN is 27, her creatinine 1.41. Blood sugars have varied from 116-279. ASSESSMENT: Certainly seems quite stable at the current time. Her renal function appears to be stable and her creatinine is in the low range of her recent values. She is not volume overloaded. RECOMMENDATIONS: Would continue to hold diuretics. Once again arterial blood gases would be valuable. It is hard to interpret the venous blood gases that she has. Nonetheless, I still believe that her blood gases and electrolytes when taken together will show that she has a combination of a chronic respiratory acidosis and a metabolic alkalosis from contraction. Over time, these should correct itself. However, a significant alkalosis can be associated with cardiac dysrhythmias. If significant alkalosis needed to be treated, one could use Diamox orally once or twice a day. That would produce perhaps a general diuresis if necessary, although with her low blood pressure at the current time that might not be advisable. However, as her blood pressure rises in the absence of other diuretics, Diamox could be added in low doses to help correct her acid base status. No other immediate recommendations.
--- NOTE | 2019-05-15 13:55 | XRay Report ---
XR chest 2V PA/lateral CLINICAL HISTORY: 78 years-old Female presenting with h/o L pneumonectomy; CHF; interval change. TECHNIQUE: Portable upright AP view of the chest was obtained. COMPARISON: 05/10/2019. FINDINGS: Left subclavian pacer with leads to the right atrium and right ventricular apex. Leftward mediastinal shift is again evident with a large left pleural effusion and postsurgical changes of left pneumonec theodora. Extensive reticular opacities in the right lung with coarsened lung parenchyma. Diffuse added d ensity of the right lung increased from prior. Small right pleural effusion. No pneumothorax. Degener ative changes of the thoracic spine. Osteopenia suspected. Cholecystectomy clips noted. Several exter nal leads overlie the right upper quadrant to grating evaluation. IMPRESSION: 1. Congestive change suspected in the right lung. Mild/developing pulmonary edema difficult to exclu de. 2. Small right pleural effusion. 3. Post surgical changes of left pneumonectomy. Electronically signed by: Gildardo Dobbins M.D. 05/15/2019 1:54 PM
[2019-05-15] MEDS: cefTRIAXone SODIUM 1,000 MG in DEXTROSE 5% 50 ML IV SCH (15:08)
[2019-05-15] MEDS: AZITHROMYCIN 500 MG in DEXTROSE 5% 250 ML IV SCH (15:53)
[2019-05-15] MEDS ORDERED: FUROSEMIDE 40 MG in SYRINGE 0 ML IV ONE (17:00)
--- NOTE | 2019-05-15 19:10 | Hospitalist Progress Note ---
Date of Service May 15, 2019 Assessment & Plan (1) Hyponatremia: Admission Na was 130. Lowest was 118 on 05/10/19. [place] to be due to diuretics, low solute intake, and SIADH. Improved s/p tolvaptan and lasix. Na now normal for 48 hours. Repeat BMP in am for stability. Remains on fluid restriction. (2) Acute on chronic diastolic (congestive) heart failure: Improving but still appeared hypervolemic today clinically & radiographically. Give 40mg IV lasix x 1 today; re-eval am. (3) Chronic respiratory failure with hypoxia: stable on home O2 amount of 2 L continuously. 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 Antonio Sebastian's outpatient notes suggest ILD as well. No record of COPD but does use inhalers. (4) Pneumonia: Started ceftriaxone + azithromycin on 05/10 for right basilar pneumonia. Today is day #6 of both. Stop zithromax. Stop rocephin - give 1 additional day of omnicef tomorrow then stop all antibiotics. (5) Atrial fibrillation with rapid ventricular response: Continue beta-zulma and calcium channel zulma. Rates controlled. Continue eliquis BID. Scant amount of hemoptysis with stable H/H. Follow. (6) Hypertension: BPs quite labile. But BP checks are in the leg which may not be accurate. Follow. No changes today but consider adjustments tomorrow if needed. (7) Diabetes type 2, controlled: A1c was 6.3% in 02/2019. Lantus had been stopped earlier this stay because of hypoglycemia. Now having significant hyperglycemia. Resume lantus at 12 units daily. Adjust carb ratio. Follow carefully. (8) CKD (chronic kidney disease) stage 4, GFR 15-29 ml/min: Cr 1.4 today stable BMP in am (9) Coronary artery disease, occlusive: Continue home ASA, Plavix, statin, beta-zulma, Imdur NO ischemic symptoms at this time Had +troponin earlier this admission - likely demand ischemia in setting of acute/chronic CHF (10) H/O heart block: s/p pacemaker in past no issues (11) Esophageal reflux: Continue PPI (12) DVT prophylaxis: eliquis BID daughter updated at bedside care d/w social work Sabrina [place] care d/w Dr Fung patient declining repeat ABG today Subjective patient sitting at bedside with daughter present. pt c/o occasional sputum production with "purple" material (old blood?) contained in it. she has mild COLEMAN. main complaint is that of weakness. patient and daughter inquire about status of rehab. tele with rate controlled a.fib overnight. pt states she had a complete left-sided pneumonectomy in the past. baseline weight is <120 pounds per her recollection. Review of Systems Constitutional: no fever and no chills Respiratory: + cough, + hemoptysis and + sputum production; no pain on inspiration Cardiovascular: no chest pain Gastrointestinal: no abdominal pain Physical Exam Constitutional: no acute distress and no altered mental status ENMT: external ear and nose normal, oropharynx normal Respiratory: Auscultation: + diminished lung sounds (left) and + crackles (right - 1/[address] up hemithorax); no wheezes Cardiovascular: Rate/Rhythm: regular rate and + irregularly irregular Heart Sounds: normal S1 and normal S2 Vessels: + JVD, posterior tibial pulses present and dorsalis pedis pulses present Extremities: + edema (<1+ b/l) Gastrointestinal (Abdomen): normal bowel sounds, soft, nontender, no hepatosplenomegaly Psychiatric: A+Ox3, euthymic affect Results & Data Vital Signs (Past 12 Hours) Vital Signs Temp Pulse Pulse Resp BP Pulse Ox 05/15/19 19:01 36.9 C 72 18 178/73 H 99 05/15/19 15:14 36.8 C 72 18 194/73 H 99 05/15/19 14:10 90 05/15/19 11:04 37.0 C 76 18 182/78 H 100 Laboratory Results Laboratory Results - last 24 hr 05/14/19 05/15/19 05/15/19 20:58 05:19 05:20 VBG pH 7.40 VBG pCO2 70 H VBG pO2 34 VBG HCO3 42 VBG O2 Saturation 62.4 VBG Base Excess 15.0 Barometric Pressure 727.5 Sodium 136 Potassium 4.1 Chloride 94 L Carbon Dioxide 41 H* Anion Gap 1.0 L BUN 27 H Creatinine 1.41 H Est Cr Clr Drug Dosing 24.8 Est GFR ( Amer) 40.7 Est GFR (Non-Af Amer) 35.1 BUN/Creatinine Ratio 19.3 Glucose 149 H POC Glucose 116 H Calcium 8.8 05/15/19 05/15/19 05/15/19 07:04 11:02 16:12 VBG pH VBG pCO2 VBG pO2 VBG HCO3 VBG O2 Saturation VBG Base Excess Barometric Pressure Sodium Potassium Chloride Carbon Dioxide Anion Gap BUN Creatinine Est Cr Clr Drug Dosing Est GFR ( Amer) Est GFR (Non-Af Amer) BUN/Creatinine Ratio Glucose POC Glucose 133 H 96 290 H Calcium 05/15/19 20:02 VBG pH VBG pCO2 VBG pO2 VBG HCO3 VBG O2 Saturation VBG Base Excess Barometric Pressure Sodium Potassium Chloride Carbon Dioxide Anion Gap BUN Creatinine Est Cr Clr Drug Dosing Est GFR ( Amer) Est GFR (Non-Af Amer) BUN/Creatinine Ratio Glucose POC Glucose 148 H Calcium PG Care Time/CCT Total # of Minutes Spent Total Time Spent with Patient: Total time spent is greater than 50% in coordination of care (as documented) at patient's floor/unit and/or counseling patient: (1) Pneumonia Laterality: right Lung location: lower lobe of lung Pneumonia type: due to unspecified organism Qualified Code(s): J18.1 - Lobar pneumonia, unspecified organism (2) Hypertension Hypertension type: essential hypertension Qualified Code(s): I10 - Essential (primary) hypertension (3) Diabetes type 2, controlled Diabetes mellitus mcc insulin use: with terminal operations supervisor use Diabetes mellitus complication status: with unspecified complications Qualified Code(s): E11.8 - Type 2 diabetes mellitus with unspecified complications; Z79.4 - medical terminologist (current) use of insulin (4) Esophageal reflux Esophagitis presence: esophagitis presence not specified Qualified Code(s): K21.9 - Gastro-esophageal reflux disease without esophagitis
[2019-05-15] MEDS: guaiFENesin 600 MG TABCR PO SCH (21:38)
[2019-05-16 06:24] LABS: BUN Creatinine Ratio 20.5 (10-20); Calcium 9.3 mg/dl (8.5-10.1); Creatinine Clr Calc Pharmacy 25.8 ml/min; Est GFR (African American) 42.5; Est GFR (Non-African American) 36.7; Potassium 3.6 mmol/L (3.5-5.1)
[2019-05-16] MEDS: ARFORMOTEROL TART 15MCG/2ML VIAL INH SCH ×2 (07:05→19:08)
[2019-05-16] MEDS: guaiFENesin 600 MG TABCR PO SCH ×2 (07:44→20:51)
[2019-05-16] MEDS: ASPIRIN 81 MG ECTAB PO SCH (07:45)
[2019-05-16] MEDS: METOPROLOL TARTRATE 25 MG TAB PO SCH ×2 (07:45→20:52)
[2019-05-16] MEDS: FAMOTIDINE 20 MG TAB PO SCH (07:45)
[2019-05-16] MEDS: dilTIAZem HCL 240 MG CAPCR PO SCH (07:45)
[2019-05-16] MEDS: APIXABAN 2.5 MG TAB PO SCH ×2 (07:45→20:50)
[2019-05-16] MEDS: ASCORBIC ACID 500 MG TAB PO SCH (07:45)
[2019-05-16] MEDS ORDERED: FUROSEMIDE 40 MG in SYRINGE 0 ML IV ONE (08:15)
[2019-05-16] MEDS: INSULIN ASPART 100 UNITS/ML 3 ML PEN SC SCH ×4 (08:58→20:53)
[2019-05-16] MEDS ORDERED: CEFDINIR 300 MG CAP PO SCH (09:00)
[2019-05-16] MEDS: ATORVASTATIN 10 MG TAB PO SCH (10:03)
[2019-05-16] MEDS: ISOSORBIDE MONO EXTENDED REL 60 MG TABCR PO SCH (10:03)
[2019-05-16] MEDS: CHOLECALCIFEROL 1,000 UNITS TAB PO SCH (10:04)
[2019-05-16] MEDS: AMLODIPINE BESYLATE 5 MG TAB PO SCH (10:04)
[2019-05-16] MEDS: CLOPIDOGREL BISULFATE 75 MG TAB PO SCH (10:04)
[2019-05-16] MEDS: INSULIN GLARGINE SOLOSTAR 100 UNITS/ML 3 ML PEN SC SCH ×2 (10:04→20:52)
--- NOTE | 2019-05-16 10:41 | Progress Note ---
DATE: 05/16/2019 SUBJECTIVE: Mrs. Santos says that she is feeling relatively well this morning. She denies having any significant problems with shortness of breath. She is upset with the post-hospital plans of going to a assisted, even though she has been reassured that that is hopefully a temporary move for her as she would be there to get regular physical and occupational therapy. She denies chest pain and denies shortness of breath. She has had no chills or fevers. She has no GI symptoms or symptoms. OBJECTIVE: GENERAL: On physical exam, she appears as an elderly, somewhat chronically ill woman of about her stated age of 78 or perhaps a bit older. VITAL SIGNS: Her blood pressure this morning is 169/83, her pulse 73 and regular, respiratory rate 18 with a pulse ox of 100% on 3 liters of oxygen via nasal cannula. SKIN: Shows normal skin turgor. She has no obvious rash or infiltrative skin disease. She has scars from prior surgical procedures. She has scattered ecchymoses on her arms. LYMPHATICS: Show no palpable lymphadenopathy. HEAD: Normal. EYES: Grossly normal. The ocular fundi were not examined. EARS, NOSE, MOUTH, AND THROAT: Unremarkable. She is edentulous with dentures. Oral mucous membranes are moist. NECK: Supple. She has jugular venous distention just above the level of the clavicle at 90 degrees. I hear no carotid bruit and there is no thyromegaly. CHEST: Shows markedly diminished or absent breath sounds on the left. What I do not hear is probably transmitted from the right. Her right chest continues to show basilar rales. CARDIAC: Again shows an irregularly irregular rhythm. I hear no definite murmur or gallop. ABDOMEN: Nontender. EXTREMITIES: Show no cyanosis or clubbing. She has 1+ lower extremity edema. NEUROLOGIC: Shows no lateralizing changes. PERTINENT LABORATORY WORK: From today shows sodium stable at 136. Her potassium is 3.6, chloride is 95, and total CO2 is 38. Her BUN is 28, her creatinine down to 1.36. Blood sugars have varied from 104-290. Her serum calcium is 9.3. ASSESSMENT: Mrs. Santos appears quite well. She does have some rales and some lower extremity edema yesterday when examined, her feet were up and the edema was not as prevalent. While I would not dav the edema, her chest x-ray did show evidence of some pulmonary infiltrates on the right side consistent with volume overload. She got an extra dose of Lasix today. Her total CO2 actually went down rather than up and her creatinine improved a bit more. RECOMMENDATIONS: Would give her another 40 mg dose of Lasix today. Certainly, I hope she can get some physical therapy here, but I do agree that she will need to go to a assisted for the short term for continued physical and occupational therapy once she appears to be stable. What can be done to assess when she has had too much in the way of diuretics is to continue to follow her BUN and creatinine. Currently, they appear to be falling, but if they begin to turn around with her chest being clear, then I would say she is probably euvolemic. Given her low serum albumin of 2.5, I would not use the presence of edema to assess her need for diuretics. I will continue to follow her with you.
[2019-05-16] MEDS ORDERED: FUROSEMIDE 40 MG TAB PO ONE (15:45)
--- NOTE | 2019-05-16 19:21 | Hospitalist Progress Note ---
Date of Service May 16, 2019 Assessment & Plan (1) Hyponatremia: Admission Na was 130. Lowest was 118 on 05/10/19. [place] to be due to diuretics, low solute intake, and SIADH. Improved s/p tolvaptan and lasix. Na now normal for last 72 hours. Repeat BMP in am. Cont fluid restriction. (2) Acute on chronic diastolic (congestive) heart failure: Improved with stable BUN & Cr today. Gave IV lasix this am and PO lasix this afternoon. Re-eval tomorrow. Weight improved/stable. (3) Chronic respiratory failure with hypoxia: stable on home O2 amount of 2 L continuously. 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 Antonio Sebastian's outpatient notes from pulmonary suggest ILD as well. No record of COPD but does use inhalers. (4) Pneumonia: Possible - RLL. Today is day #7 of abx - stop Rx after today. Received 6 days each of ceftriaxone + azithromycin prior; will get 2 doses of omnicef today. Again d/c abx tonight. (5) Atrial fibrillation with rapid ventricular response: Continue beta-zulma and calcium channel zulma. Rates controlled. Continue eliquis BID. Scant amount of hemoptysis with stable H/H. Hemoptysis could be from eliquis, pulmonary edema, pneumonia, etc. (6) Hypertension: BPs cont to be labile. If still high tomorrow then adjust meds. (7) Diabetes type 2, controlled: A1c was 6.3% in 02/2019. Lantus had been stopped earlier this stay because of hypoglycemia. Hypoglycemia resolved. BSGs controlled on basal-bolus insulin. (8) CKD (chronic kidney disease) stage 4, GFR 15-29 ml/min: Cr 1.3 today BMP in am (9) Coronary artery disease, occlusive: Continue home ASA, Plavix, statin, beta-zulma, Imdur NO ischemic symptoms at this time Had +troponin earlier this admission - likely demand ischemia in setting of acute/chronic CHF (10) H/O heart block: s/p pacemaker in past (11) Esophageal reflux: Continue PPI (12) DVT prophylaxis: eliquis BID dispo - [facility] d/c date - ? Subjective overall feels better. still with cough but that too is improved. only 1 episode of questionable old blood-tinged sputum today. no dyspnea at rest. eating ok. tele with a.fib/flutter - rates controlled. [facility] rep was present during the first part of my visit - patient states "If I have to go I have to go." Review of Systems Constitutional: no fever and no chills Respiratory: + chest congestion; no wheezing Cardiovascular: no chest pain Gastrointestinal: no abdominal pain Physical Exam Constitutional: no acute distress and no altered mental status ENMT: external ear and nose normal, oropharynx normal Respiratory: Auscultation: + diminished lung sounds (left) and + crackles (right - improved today; the rales are fine in quality); no wheezes Cardiovascular: Rate/Rhythm: regular rate and + irregularly irregular Heart Sounds: normal S1 and normal S2 Vessels: posterior tibial pulses present and dorsalis pedis pulses present; no JVD Extremities: + edema (trace b/l today) Gastrointestinal (Abdomen): normal bowel sounds, soft, nontender, no hepatosplenomegaly Psychiatric: A+Ox3, euthymic affect Results & Data Vital Signs (Past 12 Hours) Vital Signs Temp Pulse Pulse Resp BP BP Pulse Ox 05/16/19 19:08 77 18 94 05/16/19 16:14 78 15 159/60 H 05/16/19 15:19 36.6 C 71 28 H 173/61 H 100 05/16/19 13:05 89 L 05/16/19 11:15 36.7 C 67 22 158/80 H 98 Laboratory Results Laboratory Results - last 24 hr 05/15/19 05/16/19 05/16/19 20:02 05:23 07:19 Sodium 136 Potassium 3.6 Chloride 95 L Carbon Dioxide 38 H Anion Gap 3.0 BUN 28 H Creatinine 1.36 H Est Cr Clr Drug Dosing 25.8 Est GFR ( Amer) 42.5 Est GFR (Non-Af Amer) 36.7 BUN/Creatinine Ratio 20.5 H Glucose 108 H POC Glucose 148 H 104 H Calcium 9.3 05/16/19 05/16/19 11:13 15:54 Sodium Potassium Chloride Carbon Dioxide Anion Gap BUN Creatinine Est Cr Clr Drug Dosing Est GFR ( Amer) Est GFR (Non-Af Amer) BUN/Creatinine Ratio Glucose POC Glucose 134 H 105 H Calcium PG Care Time/CCT Total # of Minutes Spent Total Time Spent with Patient: Total time spent is greater than 50% in coordination of care (as documented) at patient's floor/unit and/or counseling patient: (1) Diabetes type 2, controlled Diabetes mellitus complication status: with unspecified complications Diabetes mellitus [facility] insulin use: with intermodal dispatcher use Qualified Code(s): E11.8 - Type 2 diabetes mellitus with unspecified complications; Z79.4 - shelter (current) use of insulin (2) Esophageal reflux Esophagitis presence: esophagitis presence not specified Qualified Code(s): K21.9 - Gastro-esophageal reflux disease without esophagitis (3) Hypertension Hypertension type: essential hypertension Qualified Code(s): I10 - Essential (primary) hypertension (4) Pneumonia Laterality: right Lung location: lower lobe of lung Pneumonia type: due to unspecified organism Qualified Code(s): J18.1 - Lobar pneumonia, unspecified organism
[2019-05-17 07:02] LABS: BUN Creatinine Ratio 17.8 (10-20); Calcium 9.4 mg/dl (8.5-10.1); Creatinine Clr Calc Pharmacy 22.1 ml/min; Est GFR (Non-African American) 33.6; Potassium 3.4 mmol/L (3.5-5.1)
[2019-05-17] MEDS: ARFORMOTEROL TART 15MCG/2ML VIAL INH SCH (07:12)
[2019-05-17] MEDS: INSULIN ASPART 100 UNITS/ML 3 ML PEN SC SCH ×2 (08:18→12:27)
[2019-05-17] MEDS: CHOLECALCIFEROL 1,000 UNITS TAB PO SCH (08:19)
[2019-05-17] MEDS: ISOSORBIDE MONO EXTENDED REL 60 MG TABCR PO SCH (08:19)
[2019-05-17] MEDS: ATORVASTATIN 10 MG TAB PO SCH (08:19)
[2019-05-17] MEDS: AMLODIPINE BESYLATE 5 MG TAB PO SCH (08:19)
[2019-05-17] MEDS: dilTIAZem HCL 240 MG CAPCR PO SCH (08:19)
[2019-05-17] MEDS: guaiFENesin 600 MG TABCR PO SCH (08:19)
[2019-05-17] MEDS: CLOPIDOGREL BISULFATE 75 MG TAB PO SCH (08:19)
[2019-05-17] MEDS: METOPROLOL TARTRATE 25 MG TAB PO SCH (08:19)
[2019-05-17] MEDS: APIXABAN 2.5 MG TAB PO SCH (08:20)
[2019-05-17] MEDS: FAMOTIDINE 20 MG TAB PO SCH (08:20)
[2019-05-17] MEDS: INSULIN GLARGINE SOLOSTAR 100 UNITS/ML 3 ML PEN SC SCH (08:20)
[2019-05-17] MEDS: ASCORBIC ACID 500 MG TAB PO SCH (08:20)
[2019-05-17] MEDS: ASPIRIN 81 MG ECTAB PO SCH (08:20)
[2019-05-17] MEDS ORDERED: POTASSIUM CHLORIDE 20 MEQ TABCR PO SCH (10:00)
--- NOTE | 2019-05-17 10:46 | Progress Note ---
DATE: 05/17/2019 SUBJECTIVE: Mrs. Santos says that she is feeling relatively well. She admits to being generally weak. She denies being short of breath and denies having any chest pain. She is frustrated with her inability to get rest. She says that the hospital is too noisy. She has no specific symptoms of uremia or volume overload. She says that her appetite is fair. OBJECTIVE: GENERAL: On physical exam, she appears as a chronically ill elderly woman who was in no distress when seen. VITAL SIGNS: Her blood pressure was 157/76, her pulse 67 and irregular, respiratory rate 16, her pulse ox 98% on 2 liters of oxygen via nasal cannula. She is afebrile. SKIN: Examination of her skin shows minimally reduced skin turgor. She has scars from prior surgical procedures. She has scattered ecchymoses, particularly on her upper extremities. LYMPHATICS: Show no palpable lymphadenopathy. HEAD: Normal. EYES: Grossly normal. The ocular fundi were not examined. EARS, NOSE, MOUTH, AND THROAT: Unremarkable. She is edentulous with dentures. Her oral mucous membranes are moist. NECK: Supple. She has jugular venous distention to the angle of the jaw lying at about 20 degrees. I hear no carotid bruit. There is no thyromegaly. CHEST: Shows diminished breath sounds on the left which are likely transmitted from the right. She has few crackles at the right base and some general fibrotic sounding rales. CARDIAC: Shows an irregular rhythm. She has a grade 2/6 systolic murmur at the base radiating toward the neck. ABDOMEN: Nontender. She has 1+ lower extremity edema. EXTREMITIES: She has no cyanosis or clubbing. NEUROLOGIC: Shows general weakness, but no other changes. Her cumulative I and O's about negative 8.8 liters since admission. Her most recent chest x-ray done on 05/15/2019 shows evidence of possible congestive changes in the right lung. She has a small right pleural effusion. She has had the left pneumonectomy. Her chest x-ray also shows evidence of coarse and lung parenchyma. Clinical chemistries show sodium of 137 mmol/L, potassium of 3.4 mmol/L, chloride of 94 mmol/L, and CO2 content backup to 42 mmol/L. Her BUN is 26 and her creatinine 1.46. Random blood sugar this morning was 62. Blood sugars have varied over the course of the past 24 hours from 62-180. ASSESSMENT: At the current time, it appears once again as if her total CO2 has risen somewhat after yesterday's diuretic. Her anion gap of 1, certainly is consistent with a significant alkalosis. Again, I think that this is a combination of a compensated respiratory acidosis and contraction metabolic alkalosis. Her creatinine is up one-tenth of a point. Her BUN has not risen. While this is still within the range of laboratory error, the fact that her blood pressure is lower and her creatinine is higher, does suggest that she is somewhat volume depleted. She has chronic lung changes on exam and on x-ray. As significantly fluid overloaded, she is difficult to assess. Obviously, she has edema of her lower extremities and some jugular venous distention. It seems as if the crackles in her chest may be more service liaison representative of underlying lung disease than evidence of active congestive heart failure. She is well oxygenated and is capable of lying nearly flat. RECOMMENDATIONS: I would hold her diuretics today. Again, it would be nice if we could get set of arterial blood gases to find out how alkalotic she is. If tomorrow's lab continues to show a significant elevation of her total CO2 rather than using Lasix, it may be advantageous to use oral Diamox. I would not do that today until we see how her creatinine is tomorrow. Again, we can use her BUN and creatinine as a barometer for her state of hydration and renal perfusion.
[2019-05-17] MEDS ORDERED: INSULIN GLARGINE SOLOSTAR 100 UNITS/ML 3 ML PEN SC SCH (21:00)
--- NOTE | 2019-05-31 22:17 | Discharge Summary ---
Date of Service date of admission - May 08, 2019 date of discharge - May 17, 2019 Admission HPI Per Admitting Provider 78-year-old female presents saying that she has had progressively worsening difficulty breathing over the past couple of weeks. She notes an ongoing cough with minimal sputum production. No known fevers or vomiting. Also notes decreased food intake. She attributes this to having to take "so many pills", each with a sip of water, which fills her up. She often forgets to take some of her medicines till evening as well. She says her chest only hurts with the cough. Notes some worsening leg edema during this time as well. On ROS, perhaps some constipation but had a bowel movement yesterday. No other acute patient concerns. - Overall, patient says she would not like to have further significant diagnostic testing to figure out what the cause of her respiratory failure is, however she would agree to a CT scan of her chest on admission. - Patient also says that she would not like to be on any sort of respiratory mask to help her breathe. Initially she did not like the high flow nasal cannula but says she is getting used to it. When asked, patient says that she does not wish to be intubated in case of respiratory failure nor does she want to have CPR. She says that her family is aware of this and that she had the same wishes on her last hospitalization. - Past medical history includes hypertension, hyperlipidemia, CAD, heart block, diabetes type 2, chronic renal insufficiency, right renal artery stenosis, chronic hypoxic respiratory failure, interstitial lung disease, left lung carcinoid tumor, GERD, pneumonia, left rib fractures Principal Diagnosis acute/chronic hypoxic respiratory failure; acute component multifactorial Discharge Exam Constitutional no acute distress and no altered mental status ENMT external ear and nose normal, oropharynx normal Respiratory Auscultation: + diminished lung sounds (left) and + crackles (right base - minimal ); no wheezes Cardiovascular Rate/Rhythm: regular rate and + irregularly irregular Heart Sounds: normal S1 and normal S2 Vessels: posterior tibial pulses present and dorsalis pedis pulses present; no JVD Extremities: + edema (trace b/l today) Gastrointestinal (Abdomen) normal bowel sounds, soft, nontender, no hepatosplenomegaly Psychiatric A+Ox3, euthymic affect Discharge Data Allergies Allergy/AdvReac Type Severity Reaction Status Date / Time No Known Drug Allergies Allergy Verified 05/08/19 09:21 Consultations 1. palliative care 2. PCP/nephrology - Dr Mannie Fung 3. PT, OT Ordered Studies 1. CT chest - IMPRESSION: 1. Post pneumonectomy changes on the left 2. Moderate right pleural effusion with interlobular septal thickening on the right. The findings are suggestive of cardiogenic/noncardiogenic edema. 3. Right lower lobe airspace opacities, statistically representing compressive atelectasis 4. Minimally enlarged mediastinal lymph nodes 2. echocardiogram - * EF 50-55% * moderate LVH * no pericardial effusion * no regional wall motion abnormalities Hospital Course (1) Chronic respiratory failure with hypoxia: The patient had ACUTE ON CHRONIC hypoxic respiratory failure early on during her stay. She required high-flow NC O2 for a short period of time. The acute component was 2nd to acute/chronic diastolic CHF and a possible RLL pneumonia. She received diuresis for her CHF and antibiotics for her suspected RLL pneumonia, She made gradual improvement in all pulmonary symptoms and was stable on her home O2 amount of 2-3 L continuously at time of discharge. 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 There is no documented h/o COPD although she does use inhalers prn. (2) Acute on chronic diastolic (congestive) heart failure: The patient was given IV diuresis early on in her stay and, although her pulmonary symptoms improved, she developed severe hyponatremia. Her diuretics were held for a period of time, and then ultimately she was resumed on IV lasix later in her stay for residual pulmonary edema. She developed a contraction alkalosis with such. At discharge Dr Fung recommended the following - * every other day diamox 500mg * HOLD lasix * HOLD metazolone * repeat BMP in 3-4 days for stability of electrolytes, Creatinine, and HCO3 Dr Fung recommended follow-up with him in his clinic to adjust her diuretics - ideally 1 week post-discharge. Discharge weight was 53.5 kg. Daily weights and salt/fluid restriction advised upon admission to SNF. (3) Hyponatremia: Admission Na was 130. Lowest was 118 on 05/10/19 following diuresis for her acute/chronic diastolic CHF. Hyponatremia was felt to be due to diuretics, low solute intake, and a component of SIADH. Na levels improved s/p tolvaptan and lasix. Na remained normal for 72+ hours prior to discharge. Cont fluid restriction. See "acute/chronic diastolic CHF" for information regarding diuretics. Discharge sodium level was 137. (4) Pneumonia: Possible/suspected - RLL. Completed full course of IV/PO antibiotics for such while hospitalized. (5) Atrial fibrillation with rapid ventricular response: Had a.fib with RVR during her stay. This improved with use of beta-zulma and calcium channel zulma. Rates were controlled for several days prior to discharge. Continue eliquis BID for anticoagulation. Patient reported a scant amount of hemoptysis while here; however her H/H remained stable. Hemoptysis may have been from eliquis, pulmonary edema, pneumonia, or a combination of factors. Continue to monitor for ongoing hemoptysis upon discharge. (6) Hypertension: Quite labile during her stay. Possibly related to checking her BPs in her legs rather than arms (this occurred due to limb restrictions). Defer management to Dr. Fung. (7) Diabetes type 2, controlled: A1c was 6.3% in 02/2019. During the stay she did have some episodes of hypoglycemia. Insulins were adjusted in response to such. At discharge she will take lantus 5 units BID and sliding scale novolog for meal coverage. (8) CKD (chronic kidney disease) stage 4, GFR 15-29 ml/min: Cr 1.4 at discharge; this is stable / at baseline. (9) Coronary artery disease, occlusive: Continue home ASA, Plavix, statin, beta-zulma, Imdur. NO ischemic symptoms during this stay. Had +troponin earlier this admission - likely demand ischemia in setting of acute/chronic CHF. (10) H/O heart block: s/p pacemaker in past for such. (11) Esophageal reflux: Continue PPI Total Time Total Time Spent Total Time Spent (In Minutes): 45 Total Time Includes: Examination of the Patient, Discharge Planning, Medication Reconciliation and Communication With Other Providers (Dr Mannie Fung) Discharge Plan Discharge Items Patient Disposition: Transfer [facility] Reason For Visit: Congestive Heart Failure; AFIB Discharge Diagnosis: 1. fluid retention from congestive heart failure - improved; discharge weight 53.5 kg (117.7 pounds) 2. possible right-sided pneumonia - resolved 3. a.fib - controlled Activity: Resume your previous activity Non-emergency contact: Primary Care Provider and Audio Visual Collections Coordinator Call non-emergency contact if: you have any medication questions, your symptoms worsen, your pain is not controlled and you have a fever Follow-up/Referrals: Jose F Fung MD [Primary Care Provider] - (see Dr Fung within 1 week) Diet: Carb Consistent or DM2 and Heart Healthy Fluids: 1500ml (6 cups) Diet Texture: Dental soft (bite-sized) Addtl Attending Provider Instructions: Congestive heart failure instructions - Call 911 and go to the Emergency Room if: * You have tightness or pain in your chest that does not go away with rest or Nitroglycerin * You are very short of breath even with rest Call your doctor if any of the following symptoms or problems start or get worse: * Shortness of breath or difficulty breathing * Wake up at night short of breath * Chest pain * Cough * Swelling of your hands, fee, or legs * More fatigued or tired with your normal activity * Palpitations - sudden fast heart beats WEIGHT * Weigh yourself every morning after using the bathroom. * Use the same scale. * Wear the same amount of clothing. * Write your weight down on your chart. * Call your doctor if you gain more than 2-3 pounds in 1-2 days. MEDICATIONS * Use this discharge instruction sheet for instructions. * Take your medications at the time your doctor ordered. * Do not skip a dose of your medicines. * If you miss a dose of medicine, take as soon as possible, but DO NOT DOUBLE A DOSE. * Read your medicine information when you get home. * Know all of the side effects of your medicine. * Call your doctor's office if you have any side effects. * Be sure all of your doctors know what medicine and herbs you take (including cold, flu, and herbal medicine). * Pain Medicine: If you do not get relief from your pain, please call your doctor for help. Additional instructions -- 1. check BSGs (blood sugars) BEFORE MEALs and at BEDTIME 2. check BMP and magnesium in 4 days, then 1 week after that; results to medi satinder director 3. check DAILY STANDING SCALE WEIGHTS; report any weight gain of more than 2-3 pounds in 1-2 days to the center medical director. Discharge weight - 53.5 kg 4. NC O2 - continuously - 3 liters 5. f/u Dr Fung in 1 week Take the following with you to your follow-up doctor appointments: * Weight Chart * Medication List * List of questions Do not drink excessive alcohol, beer or wine. Pending Studies at Discharge: No Stand-Alone Forms: My [facility] [employer] Skilled Items Patient informed of condition?: Yes DNR: Yes Discharge Level of Care: Skilled Communicable Disease: No Discharge Prognosis: Stable Lines: None Urinary Catheter: No Medications and DC Order Prescriptions: New Novolog Flexpen U-100 Insulin 100 unit/mL (3 mL) Insulin Pen 1 units SC AC Qty: 15 RF: 0 acetazolamide 500 mg capsule, extended release 500 mg PO .qod Qty: 30 RF: 0 Continued nitroglycerin 0.4 mg tablet, sublingual 0.4 mg sublingual .COMPLEX PRN (Reason: Chest Pain) Qty: 25 RF: 3 famotidine 20 mg tablet 20 mg PO DAILY Qty: 90 RF: 3 (DME) pen needle, diabetic [BD Ultra-Fine Short Pen Needle] 31 gauge x 5/16" needle See Rx Instructions .ROUTE .MEDSUPPLY Qty: 90 RF: 3 clopidogrel 75 mg tablet 75 mg PO DAILY Qty: 90 RF: 1 atorvastatin 10 mg tablet 10 mg PO DAILY Qty: 90 RF: 2 albuterol sulfate 2.5 mg /3 mL (0.083 %) solution for nebulization 2.5 mg inhalation .COMPLEX 90 Days Qty: 1080 RF: 1 arformoterol 15 mcg/2 mL solution for nebulization 15 mcg inhalation .COMPLEX Qty: 180 RF: 1 ipratropium bromide 0.02 % solution 0.5 mg inhalation Q4H PRN (Reason: shortness of breath or wheezing) Qty: 450 RF: 5 (DME) OneTouch Verio strip See Dose Instructions .ROUTE .MEDSUPPLY Qty: 10 RF: 0 (DME) lancets [OneTouch UltraSoft Lancets] misc See Dose Instructions .ROUTE .MEDSUPPLY Qty: 50 RF: 0 triamcinolone acetonide 0.1 % cream 1 appln TOP BID MDD bid PRN (Reason: bites and rash) Qty: 80 RF: 3 Fluzone High-Dose 2019-20 (PF) 180 mcg/0.5 mL syringe 0.5 ml IM ONCE Qty: 0.5 RF: 0 cholecalciferol (vitamin D3) 2,000 unit capsule 2,000 units PO DAILY RF: 0 Eliquis 2.5 mg Tablet 2.5 mg PO BID RF: 0 diltiazem HCl 240 mg capsule,extended release 24 hr 240 mg PO DAILY RF: 0 amlodipine 5 mg tablet 5 mg PO DAILY RF: 0 aspirin [Aspir-81] 81 mg Tablet,Delayed Release (Dr/Ec) 81 mg PO DAILY RF: 0 ascorbic acid (vitamin C) [Vitamin C] 500 mg Tablet,Chewable 500 mg PO DAILY RF: 0 metoprolol tartrate 25 mg tablet 25 mg PO BID RF: 0 Changed isosorbide mononitrate 60 mg tablet extended release 24 hr 60 mg PO DAILY Qty: 90 RF: 3 Lantus Solostar U-100 Insulin 100 unit/mL (3 mL) insulin pen 5 units subcut BID Qty: 15 RF: 3 Discontinued furosemide 40 mg tablet 40 mg PO DAILY Qty: 90 RF: 3 metolazone 5 mg tablet 5 mg PO DAILY Qty: 30 RF: 0 Discharge Orders: Discharge Order (Routine); Ordered 05/17/19 Ordered By: Jose F Aparicio Admission Data Admit Date/Time: 05/08/19 11:28 Attending Provider: Jose F Aparicio Admit Provider: Canelo Bal Primary Care Provider: Jose F Fung Other Providers: Canelo Bal ; [place],Harjeet ; [place], Other Interventions: Discharge Summary Assessment (RN) Last Done: 05/17/19 14:14 DC Date/Time DO NOT enter until pt leaves facility: 05/17/19 15:08
== END 2019-05-17 15:08 | DRG 291 ==
LOC: ED 08:31 → SUATTDRO 11:28 → 2E 11:28